=== PATIENT | male | born 1955 | race Caucasian/White ===

== ENCOUNTER 2017-05-10 09:05 | Observation (INO) | payer OTHER ==
[~2017-05-10] VITALS: Ht 170.2 cm; Wt 65.8 kg
[2017-05-10] VITALS (14 sets, daily range): BP systolic 94–107; BP diastolic 60–73
--- NOTE | ~2017-05-10 | H ---
[address] [address] HISTORY AND PHYSICAL Name: RONNY YEAGER Room: [address] Priscilla Radford#: [id number] Admission: 05/10/17 Attend Phys: Himanshu Breen MD, Discharge: 05/11/17 Date of : 51 Report #: [id number] THIS REPORT FOR: //name// Please refer to the History and Physical performed in the physician's office. By: 1150Medical Records Staff JIN /YONNY
[~2017-05-10 09:05] MED LIST: ALDACTONE25 MG PO; ASPIR 8181 MG PO; ATORVASTATIN CA40 MG PO; AZITHROMYCIN 2250 MG PO; CARVEDILOL3.125 MG PO; CARVEDILOL6.25 MG PO; CLARITIN10 M1 PO; CLARITIN10 MG PO; DUONEB 2.5-0.5 M3 ML INH; EFFIENT10 MG PO; HYDROCHLOROTH12.5 M1 PO; HYDROCODON-ACE1 EAC7 PO; IMDUR 30 MG TAB30 M1 PO; LEVAQUIN 500 M500 M2 PO; LISINOPRIL10 MG PO; LOPRESSOR50 PO; MICROZIDE12.5 MG PO; NICOTINE TRANSD14 M1 TRANSDERM; NITROGLYCERIN0.4 MG SUBLING; PREDNISONE 10 M10 MG PO; PRILOSEC 10MG C10 MG PO; PULMICORT0.5 MG/2 M INH; ZOCOR20 MG PO
[2017-05-10 10:10] LABS: HEMATOCRIT 38.3 % (42.0-52.0); HEMOGLOBIN 13.1 gm/dL (14.0-18.0); MCH 30.5 pg (26.0-34.0); MCHC 34.2 g/dL (28.0-37.0); MCV 89.1 fL (80.0-100.0); MPV 7.5 fl. (7.2-11.1); RBC 4.29 mil/uL (4.50-6.00); RDW-CV 12.5 % (10.5-14.5); WBC 8.9 thou/uL (4.0-11.0)
[2017-05-10 10:19] LABS: ANION GAP 8 mmol/L (7-16); BUN 17 mg/dL (7-18); CALCIUM 8.8 mg/dL (8.5-10.1); CHLORIDE 100 mmol/L (98-107); CO2 28 mmol/L (21-32); CREATININE 1.1 mg/dL (0.6-1.3); GLUCOSE 84 mg/dL (70-99); POTASSIUM 3.9 mmol/L (3.5-5.1); SODIUM 136 mmol/L (136-145)
[2017-05-10 10:22] LABS: APTT 23.3 Seconds (25.0-31.3); PROTIME 10.1 Seconds (9.20-11.50)
[2017-05-10 10:24] LABS: ALBUMIN 3.5 g/dL (3.4-5.0); ALKALINE PHOSPHATASE 128 U/L (46-116); CHOLESTEROL 131 mg/dL (<200); HDL CHOLESTEROL 43 mg/dL (>40); LDL CHOLESTEROL 58 mg/dL (<100); SERUM ASSESSMENT Clear; SGOT 21 U/L (15-37); SGPT 20 U/L (30-65); TOTAL BILIRUBIN 0.5 mg/dL (<0.1-1.0); TOTAL PROTEIN 7.2 g/dL (6.4-8.2); TRIGLYCERIDE 150 mg/dL (<150); VLDL 30 mg/dL (<40)
[2017-05-10] MEDS ORDERED: DUONEB 2.5-0.5 M3 ML INH (10:36)
[2017-05-10] MEDS ORDERED: PERCOCET 7.5-31 EACH PO (13:48)
--- NOTE | 2017-05-10 15:51 | EKG ---
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1955 Requested By: Himanshu Breen Order Number: [id number] Martha MD: Himanshu Breen Measurements Intervals [place] Rate: 71 P: 64 [place]: 216 QRS: 96 QRSD: 143 T: 82 QT: 424 QTc: 461 Interpretive Statements Sinus rhythm Borderline prolonged [place] interval RBBB and LPFB Anterior infarct, recent Compared to ECG 04/07/2017 22:51:05 No significant changes Electronically Signed On 05-10-2017 15:51:42 PATIENT FINANCIAL COORDINATOR by Himanshu Breen [email or web address] <ELECTRONICALLY SIGNED> By: Himanshu Breen MD, [facility] 05/10/17 1551 1028 1028 Himanshu Breen MD, [facility] /EPI
--- NOTE | 2017-05-10 15:57 | EKG ---
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1955 Requested By: Himanshu Breen Order Number: [id number] Reading MD: Himanshu Breen Measurements Intervals [place] Rate: 82 P: 66 [place]: 213 QRS: 93 QRSD: 149 T: 70 QT: 411 QTc: 480 Interpretive Statements Sinus rhythm Borderline prolonged [place] interval RBBB and LPFB Anterior infarct, recent Baseline wander in lead(s) V6 Compared to ECG 04/07/2017 22:51:05 No significant changes Electronically Signed On 05-10-2017 15:57:31 YOUTH OFFICER by Himanshu Breen [email or web address] <ELECTRONICALLY SIGNED> By: Himanshu Breen MD, FACC 05/10/17 1557 1541 1541 Himanshu Breen MD, [facility] /EPI
[2017-05-11 00:02] VITALS: BP 111/78
[2017-05-11 04:00] VITALS: BP 103/71
[2017-05-11 05:41] LABS: HEMATOCRIT 32.1 % (42.0-52.0); HEMOGLOBIN 11.3 gm/dL (14.0-18.0); MCHC 35.2 g/dL (28.0-37.0); MCV 88.2 fL (80.0-100.0); MPV 7.8 fl. (7.2-11.1); RBC 3.64 mil/uL (4.50-6.00); RDW-CV 12.3 % (10.5-14.5); WBC 6.3 thou/uL (4.0-11.0)
[2017-05-11 05:52] LABS: CALCIUM 7.9 mg/dL (8.5-10.1); CREATININE 1.1 mg/dL (0.6-1.3); POTASSIUM 4.1 mmol/L (3.5-5.1); TROPONIN-I LEVEL 0.54 ng/mL (<0.06)
[2017-05-11 08:00] VITALS: BP 113/81
[2017-05-11 11:30] VITALS: BP 114/75
[2017-05-11 11:47] VITALS: BP 113/81
--- NOTE | 2017-05-12 11:12 | CARD ---
[address] [address] CARDIAC CATH REPORT Name: RONNY YEAGER Room: [address] Priscilla Radford#: [id number] Admission: 05/10/17 Attend Phys: Himanshu Breen MD, Discharge: 05/11/17 Date of : 51 Report #: [id number] THIS REPORT FOR: //name// APPROVED REPORT Patient Details Patient Status: Out-Patient Room #: The patient is a 61 year-old male Event Personnel Himanshu Breen Jacket Preparer, Ysabel Barton RN Creative/Art Director, Ganga Juarez (R) Monitor, MargaMinerva RTR Scrub Procedures Performed Art Access - R femoral artery* , Left Heart Catheterization, Selective Right and Left Coronary Angiography, PTCA with Stenting Indication Unstable angina Risk Factors Hypercholesterolemia, Coronary Artery DiseaseHypertension Previous Procedures/Diagnoses Previous PCI, Previous DE Admission/Lab Medications/Medications given during procedure Aspirin, Platelet Aff. Inhib., Angiomax bolus and infusion Procedure Narrative The patient was brought electively to the Cardiac Catheterization Laboratory and was prepped and draped in a sterile manner. The right femoral was infiltrated with 1% Lidocaine subcutaneous anesthesia. A [place] 6 FR sheath was inserted into the right femoral artery. Coronary angiography was performed using coronary diagnostic catheters. The right coronary system was accessed and visualized with a Diagnostic JR4 6FR catheter. The left coronary system was accessed and visualized with a Diagnostic JL 4 6FR catheter. The left ventricle was accessed and visualized with a Diagnostic catheter. Left ventricular/Aortic Valve gradient assessed via catheter pullback. Left ventriculogram was performed in DEVI projection. Pre-demployment femoral angiogram was performed . Closure device was deployed with a 6 Fr Angioseal. The [place] [address] CARDIAC CATH REPORT Name: RONNY YEAGER Room: [address] M.R.#: [id number] Admission: 05/10/17 Attend Phys: Himanshu Breen MD, Discharge: 05/11/17 Date of : 51 Report #: [id number] well and there were no complications associated with the procedure. Intraoperative Conscious Sedation Sedation start time: 11:51 Case end Time: 12:51 Fentanyl 50 mcg Versed 3 mg Fluoro Time: 16.8 minutes Dose: DAP [id number] cGycm2 1599.68 mGy Contrast Type and Amount: Visipaque 265 ml Coronary Angiography The patient's coronary anatomy is right dominant. Diagnostic Cath Left Main 0% narrowing LAD 75% tubular mid vessel stenosis, partially within the previously deployed stent Diagonal 1 80 percent proximal stenosis Circumflex 30% mid vessel narrowing Right Coronary Widely patent proximal and mid vessel stents with 30% mid right coronary narrowing Left Ventriculography The left ventricular ejection fraction is estimated to be 30%. Left ventricular wall motion abnormalities are present. There is no mitral insufficiency. There is severe anterolateral and apical hypokinesis to akinesis IVUS Findings Mini Trek RX 2.0 X 8 Hemodynamics The aortic pressure is 99/57 mmHg with a mean of mmHg. The left ventricular pressure is 94/1 mmHg with a mean of mmHg. The left ventricular end diastolic pressure is 8 mmHg. There was no gradient across the aortic valve upon pullback. PCI Technique Lesion Anticoagulation was achieved with Angiomax. Percutaneous coronary intervention was performed on the mid left anterior descending artery segment. The lesion stenosis prior to intervention was 75% with JEFF 3 flow. A 6F XB LAD 3.5 Guide Catheter was used to engage the LCA ostium. A IG: ProwaterFlex 180CM Interventional Guidewire was used [place] [address] CARDIAC CATH REPORT Name: MIRELLA YEAGEREn BEAUCHAMP Room: [address] Priscilla Radford#: [id number] Admission: 05/10/17 Attend Phys: Himanshu Breen MD, Discharge: 05/11/17 Date of : 51 Report #: [id number] BALLOON DILATION A Balloon catheter Trek RX 3.0 X 15 was inserted and inflated up to 16.00atm for 19seconds. Additional Inflation: 16.00atm for 14seconds. STENT DEPLOYMENT A drug-eluting stent Xience Alpine RX 3.0X28 was inserted and inflated up to 10.00atm for 14seconds. Additional Inflation: 16.00atm for 15seconds. Additional Inflation: 18.00atm for 13seconds. Final angiography reveals 10 % stenosis with JEFF 3 flow. BALLOON DILATION A Balloon catheter Mini Trek RX 2.0 X 8 was inserted and inflated up to 10.00atm for 13seconds. Additional Inflation: 12.00atm for 18seconds. PCI Technique Lesion 2 Percutaneous Coronary Intervention was performed on the first diagonal branch. The lesion stenosis prior to intervention was 90% with JEFF 3 flow. Balloon Dilation A Balloon catheter Mini Trek RX 2.0 X 8 was inserted and inflated up to 12atm for 20seconds. Final angiography reveals 30 % stenosis with JEFF 3 flow. Conclusion #1 significant coronary disease characterized by following: A 75% mid LAD stenosis with 80% ostial first diagonal narrowing, B 30% narrowing of the midportion of the nondominant circumflex, C large dominant right coronary with widely patent proximal and mid vessel stents with 30% mid right coronary narrowing, #2 severe impairment in global left ventricular systolic function, estimated ejection fraction of 30% with severe anterolateral and apical hypokinesis to akinesis #3 normal left-sided hemodynamic study, #4 successful percutaneous coronary [place] [address] CARDIAC CATH REPORT Name: RONNY YEAGER Room: [address] MMauriiloRMaurilio#: [id number] Admission: 05/10/17 Attend Phys: Himanshu Breen MD, Discharge: 05/11/17 Date of : 51 Report #: [id number] drug-eluting stent at site of 75% tubular mid LAD stenosis with 10% residual narrowing following stent deployment and JEFF-3 flow the distal vessel, #4 successful percutaneous transluminal coronary angioplasty at the site of 90% ostial first diagonal narrowing with 30% residual narrowing following final dilatation and JEFF-3 flow the distal vessel. Recommendations Cardiac Risk Reduction Program Aggressive Medical Therapy Medications Administered Aspirin (any) Prasugrel <ELECTRONICALLY SIGNED> By: Himanshu Breen MD, FAC 05/12/17 1112 11 1112Himanshu Breen MD, FACC /INF
--- NOTE | 2017-05-12 13:38 | D ---
[address] [address] DISCHARGE SUMMARY Name: SHOBHARONNY QUYNH Room: [address] Priscilla Radford#: [id number] Admission: 05/10/17 Attend Phys: Himanshu Breen MD, Discharge: 05/11/17 Date of : 51 Report #: [id number] THIS REPORT FOR: //name// CC: Xu Breen DATE OF SERVICE: 05/11/2017 FINAL DISCHARGE DIAGNOSES: 1. Multivessel coronary artery disease. 2. Status post recent anterior wall myocardial infarction. 3. Ischemic cardiomyopathy. 4. Complete heart block in the context of the acute infarction requiring placement of a permanent pacemaker. 5. Chronic obstructive pulmonary disease. 6. Ischemic cardiomyopathy, most recent ejection fraction being 30%. 7. Status post percutaneous coronary intervention of the LAD and diagonal on 05/10/2017. PROCEDURES: 05/10/2017 -- left heart catheterization, left ____, selective coronary arteriography ____ with deployment of a drug-eluting stent at the site of 75% tubular and mid LAD stenosis with dilatation of high grade first diagonal stenosis. HOSPITAL COURSE: The patient is a 61-year-old male who presented several weeks ago with acute anterior wall infarction and underwent emergent intervention to the LAD. He presented several weeks later with chest pain and underwent a more elective approach to the tubular and mid right coronary lesion with a good angiographic result. Echocardiogram in the office had suggested an improvement in ejection fraction to approximately 30%. He has worn a LifeVest since the initial admission when ejection fraction was estimated at 20-25%. There have been no recording of significant ventricular arrhythmias and no discharges from the LifeVest since discharge. In the context of recurrent chest discomfort, he underwent recatheterization on 05/10/2017, which revealed 75% tubular, mid LAD and narrowing with a 90% stenosis of the diagonal emanating from this region. I deployed one drug-eluting stent in the mid LAD and dilated the ostium of the diagonal with a good angiographic result. The patient did well post-procedurally and there was good hemostasis at the femoral site of catheterization. LABORATORY DATA: 05/11/2017, revealed hemoglobin of 11.3, white blood cell count of 6300 with a platelet count of 236,000. Sodium 136, potassium 4.1, BUN 16, creatinine 1.1. Troponin 0.54. The patient was discharged to home on 05/11/2017 on the following medications: [place] [address] DISCHARGE SUMMARY Name: RONNY YEAGER Room: [address]#: [id number] Admission: 05/10/17 Attend Phys: Himanshu Breen MD, Discharge: 05/11/17 Date of : 51 Report #: [id number] Aspirin 81 mg daily, atorvastatin 40 mg daily, carvedilol 6.25 mg b.i.d., Imdur 30 mg daily, lisinopril 10 mg daily, loratadine 10 mg daily, omeprazole 10 mg daily, prasugrel 10 mg daily, spironolactone 25 mg daily, ipratropium and albuterol inhale q.i.d., p.r.n. sublingual nitroglycerin, and oxycodone/APAP 7.5/325 one tablet every 4-6 hours as needed for pain. The patient is scheduled to be readmitted next Monday for upgrading of his device from a dual chamber pacemaker to pacemaker defibrillator in the context of a persistent cardiomyopathy, ejection fraction estimated at 30% at this juncture. These issues were discussed in detail with the patient, and he is discharged home in stable condition with followup as iterated above with a planned followup with our nurse practitioner, Ruby Barreto on 05/15/2017 at 10:00; myself on 06/13/2017 at 14:20 with interval placement and upgrading of his device to dual chamber pacemaker defibrillator on 05/16/2017. <ELECTRONICALLY SIGNED> By: Himanshu Breen MD, FACC 05/12/17 1338 1607 1826Himanshu Breen MD, FAC /nt
--- NOTE | 2017-05-12 14:08 | EKG ---
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 : 1955 Requested By: Himanshu Breen Order Number: [id number] Reading MD: Himanshu Breen Measurements Intervals [place] Rate: 81 P: 50 AL: 232 QRS: 98 QRSD: 154 T: 52 QT: 397 QTc: 461 Interpretive Statements Sinus rhythm Ventricular premature complex Prolonged [place] interval RBBB and LPFB Probable anteroseptal infarct, recent Compared to ECG 05/10/2017 15:41:30 Ventricular premature complex(es) now present Myocardial infarct finding still present Electronically Signed On 05-12-2017 14:08:41 CHIEF OF SERVICE by Himanshu Breen [email or web address] <ELECTRONICALLY SIGNED> By: Himanshu Breen MD, [facility] 05/12/17 1408 0630 0630 Himanshu Breen MD, [facility] /EPI
[2017-12-05] MEDS ORDERED: CARVEDILOL3.125 MG PO (08:55)
[2017-12-26] MEDS ORDERED: MEDROLDOSEPACK PO (10:03)
== END 2017-05-11 16:20 | disposition home or self-care (01) ==
LOC: M.CL 09:05 → M.2W 13:11 → M.TBA-CV 13:11 → M.2W 13:19
PROVIDERS: ADMIT Internal Medicine
DX: I25.110 Atherosclerotic heart disease of native coronary artery with unstable angina pectoris (principal); I21.9 Acute myocardial infarction, unspecified; I10 Essential (primary) hypertension; E78.00 Pure hypercholesterolemia, unspecified; J44.9 Chronic obstructive pulmonary disease, unspecified; I25.5 Ischemic cardiomyopathy; Z87.891 Personal history of nicotine dependence; I44.2 Atrioventricular block, complete; M54.9 Dorsalgia, unspecified; G89.29 Other chronic pain

== ENCOUNTER → 2017-05-16 | Outpatient (CLI) | payer OTHER ==
[~2017-05-16] VITALS: Ht 167.6 cm; Wt 68.0 kg
[~2017-05-16] MED LIST changes: +AMITRIPTYLINE H25 M2 PO; +CIPRO500 MG PO; +COLACE100 MG PO; +ENTRESTO 24 MG1 EACH PO; +FLAGYL500 MG PO; +LISINOPRIL5 MG PO; +MEDROLDOSEPACK PO; +MIRALAX17 GM PO; +NORCO 5-325 TA1 EACH PO; +PANTOPRAZOLE SO40 M1 PO; +PERCOCET 10-321 EACH PO; +PERCOCET 7.5-31 EACH PO; +RANEXA500 MG PO; +REGLAN 10 MG TA10 MG PO; +SCOPOLAMINE1 EACH TRANSDERM; +SENNA8.6 MG PO; +ZOFRAN ODT4 MG SUBLING
[2017-05-16 14:01] VITALS: BP 89/64
[2017-05-16 14:22] VITALS: BP 100/70
[2017-05-16 15:15] VITALS: BP 106/68
--- NOTE | 2017-05-16 16:46 | EKG ---
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25 : 1955 Requested By: Ja Booth Order Number: [id number] Reading MD: Ja Booth Measurements Intervals [place] Rate: 67 P: 44 [place]: 226 QRS: 94 QRSD: 149 T: 57 QT: 433 QTc: 457 Interpretive Statements Sinus rhythm Ventricular premature complex Prolonged [place] interval RBBB and LPFB Probable anteroseptal infarct, recent Compared to ECG 05/11/2017 06:30:19 No significant changes Electronically Signed On 05-16-2017 16:46:11 OPTICAL COATING TECHNICIAN by Ja Booth [email or web address] <ELECTRONICALLY SIGNED> By: Ja Booth MD, [facility] 05/16/17 1646 1419 1419 Ja Booth MD, [facility] /EPI
--- NOTE | 2017-05-24 19:07 | CARD ---
[address] [address] CARDIAC CATH REPORT Name: RONNY YEAGER Room: [facility]#: [id number] Admission: 05/16/17 Attend Phys: Ja Booth MD Discharge: Date of : 51 Report #: [id number] THIS REPORT FOR: //name// APPROVED REPORT Patient Status: Out-Patient Room #: Event Personnel: Ja Booth Brewing Technician, Ysabel Barton RN RN, Lola Hernandes RN Monitor, Minerva Gresham RTR Scrub, Shahida Leigh Monitor, Nereyda Hutton RN RN Exam: insertion of a dual-chamber pacing defibrillator Indications: ischemic cardiomyopathy The patient is a 61 year-old male with a history of myocardial infarction with reduced left ventricular systolic function. Intraoperative Conscious Sedation Sedation start time: 12:06 Case end Time: 13:10 Fentanyl 75 mcg Versed 4 mg Implanted Devices: Biotronik Ilivia 7 DR-T DF 4 pro-MRI model #928684 serial #[id number]. Biotronik Plexa ProMRI SD model #435959 serial #[id number] Explanted Devices: Biotronik Eluna 8 DR T pro-MRI model #527360, serial #[id number]. Biotronik Solia S 53 model #463301, serial #[id number]. Procedure After explaining the risks, benefits, and alternative options, informed consent was obtained from the patient. The patient was brought to the cardiac catheterization lab and the left chest and shoulder were prepped and draped in the usual fashion. During this case, Fluoroscopy and no contrast were used for imaging. After informed consent was obtained the patient was brought to the cardiac catheterization lab. The area of the left chest was prepped and draped in sterile fashion. Local anesthesia was achieved with 1% lidocaine. After an initial incision was made over the existing generator the device was explanted using electrocautery and blunt dissection. The dual chamber pacemaker generator was detached from the atrial and ventricular [place] [address] CARDIAC CATH REPORT Name: RONNY YEAGER Room: [facility]#: [id number] Admission: 05/16/17 Attend Phys: Ja Booth MD Discharge: Date of : 51 Report #: [id number] injection of IV contrast showed some patency of the subclavian vein distal to the insertion point of the existing atrial and RV leads. Direct access with a micropuncture kit was not possible. At this point the right ventricular lead was freed up from its distal insertion by unscrewing the active fixed hip and pulling back the lead. A small neck was made in the insulation and the micropuncture wire inserted into the RV lead under the insulation. Using this method the micropuncture guidewire was advanced by advancing the RV lead as well. The micropuncture lead once within the subclavian vein was freed from the RV lead. Several dilators were utilized to expand the tract. Ultimately a 7 Tristanian tear-away introducer was advanced over the guidewire. At this point the RV lead was extracted without difficulty. A new pacing defibrillator lead was advanced to the RV apex under fluoroscopic guidance. The lead was actively fixed. Thresholds were checked and deemed to be satisfactory. There was no diaphragmatic pacing at maximum output. The pacing defibrillator lead was then secured within the pacemaker pocket using the designated cuff and 2-0 silk suture. The pacemaker pocket was then expanded. The pocket was flushed with antibiotic solution. The existing atrial and new RV pacing defibrillator lead were attached to a dual-chamber pacing defibrillator generator. The generator and redundant leads were then placed within the pacemaker pocket. The pacemaker pocket was closed first using interrupted stitches of 2-0 Vicryl for the deep tissue. The skin incision was then closed with a single subcuticular stitch of 4-0 Vicryl. Several Steri-Strips were placed across the incision and a sterile Telfa dressing covered with a Tegaderm. The patient tolerated the procedure well without complication. At the completion of implant the sensed P-wave was 2.90 mV with a pacing threshold of 0.8 V at 0.40 ms and a pacing impedance of 468 ohms. The sensed R-wave was 10.7 mV with a right ventricular pacing threshold of 0.70 V at 0.40 ms. The sensed R-wave was 10.7 mV. The right ventricular pacing impedance was 522 ohms. The shock impedance was 47 ohms with a charge time of 10.1 seconds. The VF detection rate was 222 bpm. The VT 1 detection rate was 150 bpm. The VT 2 detection rate was 176 bpm. VF therapies were anti-tachycardia pacing times one followed by 40 J shocks times a day. VF therapies were monitor only and the VT 1 zone and burst pacing 6 followed by ramp pacing 6 followed by 40 J shocks times a day in the VT 2 zone. Complications The patient tolerated the procedure well and there were no complications [place] [address] CARDIAC CATH REPORT Name: RONNY YEAGER Room: [facility]#: [id number] Admission: 05/16/17 Attend Phys: Ja Booth MD Discharge: Date of : 51 Report #: [id number] Conclusion 1. Ischemic cardiomyopathy 2. Successful upgrade of existing dual-chamber pacing system to a dual-chamber pacing defibrillator system Recommendations 1. Follow-up site check in one week. <ELECTRONICALLY SIGNED> By: Ja Booth MD, FACC 05/24/171906 06 06Michaealec Booth MD, FACC /INF
== END ==
LOC: M.CL 08:44
DX: I25.5 Ischemic cardiomyopathy (principal); I10 Essential (primary) hypertension; I25.2 Old myocardial infarction; J44.9 Chronic obstructive pulmonary disease, unspecified; Z90.49 Acquired absence of other specified parts of digestive tract; Z98.890 Other specified postprocedural states; Z95.5 Presence of coronary angioplasty implant and graft; Z79.82 Long term (current) use of aspirin; Z79.899 Other long term (current) drug therapy; Z79.891 Long term (current) use of opiate analgesic

== ENCOUNTER 2017-08-08 17:30 | Inpatient (IN) | payer OTHER ==
[~2017-08-08] VITALS: Ht 170.2 cm; Wt 73.5 kg
--- NOTE | ~2017-08-08 | PROC ---
[address] [address] PROCEDURE REPORT Name: RONNY YEAGER Room: [address] IN .R.#: [id number] Admission: 08/08/17 Attend Phys: Josselin Villagomez MD Discharge: Date of : 51 Report #: [id number] THIS REPORT FOR: //name// For GI report, please see the Provation report in Perceptive 7 content. By: 0658Medical Records Staff YONI /YONNY
[~2017-08-08 17:30] MED LIST changes: -AMITRIPTYLINE H25 M2 PO; -CIPRO500 MG PO; -COLACE100 MG PO; -ENTRESTO 24 MG1 EACH PO; -FLAGYL500 MG PO; -LISINOPRIL5 MG PO; -MEDROLDOSEPACK PO; -MIRALAX17 GM PO; -NORCO 5-325 TA1 EACH PO; -PANTOPRAZOLE SO40 M1 PO; -PERCOCET 10-321 EACH PO; -RANEXA500 MG PO; -REGLAN 10 MG TA10 MG PO; -SCOPOLAMINE1 EACH TRANSDERM; -SENNA8.6 MG PO; -ZOFRAN ODT4 MG SUBLING
[2017-08-08 17:49] VITALS: BP 114/69
[2017-08-08] MEDS ORDERED: ENTRESTO 24 MG1 EACH PO (17:54)
[2017-08-08 18:14] LABS: ABSOLUTE BASOPHILS 0.1 thou/uL (0.0-0.2); ABSOLUTE EOSINOPHILS 0.4 thou/uL (0.0-0.7); ABSOLUTE MONOCYTES 0.8 thou/uL (0.0-1.2); ABSOLUTE NEUTROPHILS 6.9 thou/uL (1.6-8.1); BASOPHILS 0.9 %; EOSINOPHILS 4.6 %; HEMATOCRIT 33.2 % (42.0-52.0); HEMOGLOBIN 11.4 gm/dL (14.0-18.0); LYMPHOCYTES 10.6 %; MCH 30.3 pg (26.0-34.0); MCHC 34.2 g/dL (28.0-37.0); MCV 88.6 fL (80.0-100.0); MONOCYTES 8.6 %; MPV 7.3 fl. (7.2-11.1); NUCLEATED RBCS 0 /100WBC; PLATELET COUNT* 347 thou/uL (150-400); POLYS 75.3 %; RBC 3.75 mil/uL (4.50-6.00); RDW-CV 12.5 % (10.5-14.5); WBC 9.1 thou/uL (4.0-11.0)
[2017-08-08 18:22] LABS: ANION GAP 5 mmol/L (7-16); BUN 12 mg/dL (7-18); CHLORIDE 98 mmol/L (98-107); CO2 34 mmol/L (21-32); CREATININE 1.3 mg/dL (0.6-1.3); GLUCOSE 120 mg/dL (70-99); POTASSIUM 3.7 mmol/L (3.5-5.1); SODIUM 137 mmol/L (136-145)
[2017-08-08 18:29] LABS: ALBUMIN 3.2 g/dL (3.4-5.0); ALKALINE PHOSPHATASE 104 U/L (46-116); LIPASE 64 U/L (73-393); SGOT 22 U/L (15-37); SGPT 19 U/L (30-65); TOTAL BILIRUBIN 0.7 mg/dL (<0.1-1.0); TOTAL PROTEIN 7.3 g/dL (6.4-8.2); TROPONIN-I LEVEL <0.06 ng/mL (<0.06)
[2017-08-08 19:47] LABS: URINE BILIRUBIN NEGATIVE (Negative); URINE BLOOD NEGATIVE (Negative); URINE CLARITY CLEAR; URINE COLOR STRAW; URINE GLUCOSE-RANDOM NEGATIVE (Negative); URINE KETONES NEGATIVE (Negative); URINE LEUKOCYTES-REFLEX NEGATIVE (Negative); URINE NITRITE-REFLEX NEGATIVE (Negative); URINE PROTEIN NEGATIVE (Negative); URINE SPECIFIC GRAVITY <= 1.005 (1.005-1.030); URINE UROBILINOGEN 0.2 E.U./dl (0.2-1.0)
[2017-08-08 22:05] VITALS: BP 94/60
[2017-08-08 22:15] VITALS: BP 94/62
[2017-08-09 08:05] VITALS: BP 84/48
[2017-08-09 09:00] VITALS: BP 93/56
[2017-08-09 16:05] VITALS: BP 100/66
[2017-08-09 21:15] VITALS: BP 94/64
[2017-08-10 04:17] LABS: HEMATOCRIT 27.9 % (42.0-52.0); HEMOGLOBIN 9.6 gm/dL (14.0-18.0); MCH 30.4 pg (26.0-34.0); MCHC 34.5 g/dL (28.0-37.0); MCV 88.3 fL (80.0-100.0); MPV 7.3 fl. (7.2-11.1); RBC 3.16 mil/uL (4.50-6.00); RDW-CV 12.5 % (10.5-14.5); WBC 7.2 thou/uL (4.0-11.0)
[2017-08-10 04:29] LABS: CALCIUM 8.3 mg/dL (8.5-10.1); CREATININE 1.1 mg/dL (0.6-1.3); MAGNESIUM 1.3 mg/dL (1.8-2.4); POTASSIUM 3.5 mmol/L (3.5-5.1)
[2017-08-10 08:05] VITALS: BP 98/65
[2017-08-10 12:29] VITALS: BP 98/65
[2017-08-10 14:06] VITALS: BP 132/66
--- NOTE | 2017-08-10 16:38 | EKG ---
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 : 1955 Requested By: Armin Barrios Order Number: [id number] Martha MD: Ja Booth Measurements Intervals [place] Rate: 92 P: 49 [place]: 215 QRS: 105 QRSD: 150 T: 18 QT: 376 QTc: 466 Interpretive Statements Sinus rhythm Prolonged [place] interval RBBB and LPFB Probable anteroseptal infarct, old Compared to ECG 05/16/2017 14:19:47 Ventricular premature complex(es) no longer present Myocardial infarct finding still present Electronically Signed On 08-10-2017 16:38:09 CDT by Ja Booth [email or web address] <ELECTRONICALLY SIGNED> By: Ja Booth MD, FAC 08/10/17 1638 0826 0826 Ja Booth MD, [facility] /EPI
[2017-08-10 17:15] VITALS: BP 107/73
--- NOTE | 2017-08-10 17:42 | CON ---
[address] [address] CONSULTATION Name: JOSEPHJULIANNERONNY JOE Room: [address] IN M.R.#: [id number] Admission: 08/08/17 Attend Phys: Josselin Villagomez MD Discharge: Date of : 51 Report #: [id number] THIS REPORT FOR: //name// CC: Xu Roche DATE OF SERVICE: 08/09/2017 HISTORY OF PRESENT ILLNESS: The patient is a 61-year-old white male who I was asked to see in the hospital today because of his history of coronary artery disease. The patient has a long history of coronary artery disease. He initially had a heart catheterization by Dr. Breen at [facility] years ago and had only mild coronary artery disease and did not require stenting. He had a repeat heart catheterization here at [place] in 02/2017 when he presented with chest pain and ST segment changes. Dr. Breen performed a cardiac catheterization in 02/2017 and no ventriculogram was performed. He was found to have complete occlusion of the LAD, 80% narrowing of the marginal branch of circumflex and a 75% stenosis of the right coronary artery. He then had a drug-eluting stent placed at the site of the occluded LAD. The patient next day developed high-degree AV block and Dr. Booth implanted a permanent pacemaker. The patient was then discharged. The patient then presented in March after his myocardial infarction and had an ejection fraction of 35% by echo. The patient presented in March with burning in his chest and shortness of breath. I actually saw him in consultation. He is felt to have COPD. Because of his cardiomyopathy, he was actually sent home with a LifeVest. I performed repeat cardiac catheterization in 03/2017 and at that time, the stent in the LAD had no restenosis. Ejection fraction was only 25%. He was noted to have a long 70% stenosis of the right coronary artery. I then placed a drug-eluting stent in the right coronary artery. The patient has been following Dr. Booth and Dr. Breen in the Cardiology Clinic. The patient was readmitted 05/11/[address] Breen performed a repeat cardiac catheterization and placed a new drug-eluting stent in the LAD. He also dilated the ostium of the diagonal branch. The patient was then readmitted a week later and Dr. Booth upgraded his pacemaker to a defibrillator. The patient notes about a week ago, he had a syncopal spell at home. He did not feel a discharge from his defibrillator. He has been short of breath, but denies any chest pain. He came to the Emergency Room yesterday complaining of abdominal discomfort and vomiting. He then felt well. He was seen by the GI service and is scheduled for colonoscopy tomorrow. I was asked to see him for preoperative evaluation. PAST MEDICAL HISTORY: Otherwise significant for back surgery, hypertension, hyperlipidemia. MEDICATIONS: Include aspirin, Lipitor, carvedilol, Lasix, Effient, Entresto, [place] [address] CONSULTATION Name: RONNY YEAGER Room: [address] IN [facility].#: [id number] Admission: 08/08/17 Attend Phys: Josselin Villagomez MD Discharge: Date of : 51 Report #: [id number] ALLERGIES: HE HAS INTOLERANCE TO OXYCODONE. FAMILY HISTORY: Heart disease runs in the family. SOCIAL HISTORY: He is . He and his live in [place], [place]. 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 Quit smoking last February. No alcohol abuse. REVIEW OF SYSTEMS: No history of stroke, asthma. He does have peptic ulcer disease. No liver disease, no kidney disease, no cancer. Does wear glasses. PHYSICAL EXAMINATION: GENERAL: Revealed a middle-aged male who was lying in bed. He appeared in no distress. VITAL SIGNS: Blood pressure was 100/60, pulse 70, he is afebrile. HEENT: He was anicteric. Conjunctivae pink. Mucous membranes moist. NECK: Veins nondistended. No carotid bruits. CHEST: Clear to auscultation. CARDIAC: Regular rate and rhythm. ABDOMEN: Soft, is mildly tender. EXTREMITIES: Had no edema. Dorsalis pedis pulse 1+ bilaterally. SKIN: Cool and dry. NEUROLOGIC: Nonfocal. His ECG was not done on admission. His workup so far, he had CT scan of the abdomen and pelvis on admission with contrast, which showed possible colon mass or colitis, evidence of diverticulosis. CT scan of the head without contrast was unremarkable. CT scan of the chest without contrast showed hyperinflated lung shah. His last echocardiogram in 03/2017 showed an ejection fraction of 35%. His lab work, sodium 137, BUN 12, creatinine 1.3. His bilirubin 0.7, SGOT 22, SGPT 19. Troponin 0.06. His white blood cell count 9.1, hemoglobin 11.4. IMPRESSION AND RECOMMENDATIONS: 1. Coronary artery disease. The patient had a drug-eluting stent placed 3 months ago. Since it has now been 3 months, I think it is reasonable to hold the Effient and aspirin for 5 days prior to proceeding with biopsy. However, at this time, the patient has no cardiac contraindication to procedure. 2. Cardiomyopathy. The patient is on Entresto and a beta erin. 3. Previous implantation of defibrillator. No recent discharge. 4. History of heart block. The patient has a pacemaker in place. 5. Previous tobacco abuse. [address] [address] CONSULTATION Name: JOSEPHJULIANNERONNY Room: [address] IN ..#: [id number] Admission: 08/08/17 Attend Phys: Josselin Villagomez MD Discharge: Date of : 51 Report #: [id number] 6. Chronic obstructive pulmonary disease. 7. Hyperlipidemia. The patient is on a statin drug. <ELECTRONICALLY SIGNED> By: Armin Barrios MD, FACCassandra 08/10/17 1742 [id number] 2021Deric Barrios MD, FACCassandra /nt
[2017-08-10 19:45] VITALS: BP 100/64
[2017-08-11 07:40] VITALS: BP 100/59
[2017-08-11 16:11] VITALS: BP 103/58
[2017-08-12 00:25] VITALS: BP 106/61
[2017-08-12 07:45] VITALS: BP 106/66
[2017-08-12] MEDS ORDERED: FLAGYL500 MG PO (09:11)
[2017-08-12] MEDS ORDERED: SENNA8.6 MG PO (09:11)
[2017-08-12] MEDS ORDERED: MIRALAX17 GM PO (09:11)
[2017-08-12] MEDS ORDERED: COLACE100 MG PO (09:11)
[2017-08-12] MEDS ORDERED: CIPRO500 MG PO (09:11)
[2017-08-12 11:45] VITALS: BP 106/66
--- NOTE | 2017-08-14 10:38 | S ---
[address] [address] SURGICAL PATH RPT PROCEDURE Name: RONNY HINOJOSA Room: [address] IN M.R.#: [id number] Admission: 08/08/17 Date of : 51 Discharge: 08/12/17 Report #: [id number] Path Case #: [id number] PATHOLOGY REPORT COLLECTION DATE: 08/10/2017 RECEIVED DATE: 08/10/2017 SUBMITTING PHYS: Dr. Verona Billings OTHER PHYS: Dr. Josselin Davila SPECIMEN(S) RECEIVED: A.Ulcerated cecum B.Ulcerated proximal ascending colon C.Ulcerated mid ascending colon * * * * * * * * * * * * FINAL DIAGNOSIS: A. Ulcerated cecum: - Active colitis, moderate, with ulceration typical of ischemia. - No granulomas identified. - See comment. B. Ulcerated proximal ascending colon: - Active colitis, mild. - No granulomas identified. - See comment. C. Ulcerated mid ascending colon: - Active colitis, mild, with focal eosinophilic infiltrate. - No granulomas identified. - See comment. COMMENT: Active colitis is present in all three biopsy specimens, with ulcer present in part A (cecum) typical of ischemia. The active colitis present in parts B and C (proximal ascending colon and mid ascending colon) could certainly be seen in ischemia, but lacks the ulceration present in part A (cecum). No significant basal lymphoplasmacytosis is present. Significant architectural distortion is absent. Viral type cytologic features are not identified. No granulomas are present. Clinical correlation is recommended. PATHOLOGIST: Ja Wood M.D. REPORT ELECTRONICALLY SIGNED BY: Ja Wood M.D. DATE/TIME: 08/14/2017 10:37 * * * * * * * * * * * * GROSS PATHOLOGY: A. Received in formalin labeled "Ronny Hinojosa, ulcerated cecum BX," [place] [address] SURGICAL PATH RPT PROCEDURE Name: RONNY HINOJOSA Room: [address] IN [facility].#: [id number] Admission: 08/08/17 Date of : 51 Discharge: 08/12/17 Report #: [id number] Path Case #: [id number] is a segment of farr soft tissue measuring 0.4 cm in maximum dimension. The specimen is submitted entirely in cassette A1. B. Received in formalin labeled "Ronny Padronon, ulcerated proximal ascending colon BX," is a segment of farr soft tissue measuring 0.4 cm in maximum dimension. The specimen is submitted entirely in cassette B1. C. Received in formalin labeled "Ronny Wagnon, ulceration mid ascending colon," is a segment of farr soft tissue measuring 0.4 cm in maximum dimension. The specimen is submitted entirely in cassette C1. (TSD; 08/10/2017) CLINICAL HISTORY: Suspected ischemia INITIAL CPT CODE(S): A; 81688 B; 17498 C; 37783 Professional services performed by [facility] at [facility] [address] [facility], [place] [address] Technical services performed by [facility] at [address] [place] [address], [address], [place] [address]. [facility] [address] [place] [address] PHONE: [phone] DIRECTOR: Caleb Whitten M.D. * * * END OF REPORT * * *
--- NOTE | 2017-08-28 15:01 | CON ---
[address] [address] CONSULTATION Name: RONNY YEAGER Room: [address] IN M.R.#: [id number] Admission: 08/08/17 Attend Phys: Josselin Villagomez MD Discharge: 08/12/17 Date of : 51 Report #: [id number] THIS REPORT FOR: //name// CC: TIARA Villagomez DICTATED BY: Opal Soto [facility] DATE OF SERVICE: 08/09/2017 Please note at the time of this dictation, the patient was seen and physically examined by myself. REASON FOR CONSULTATION: Right-sided abdominal pain and abnormal CT findings. HISTORY OF PRESENT ILLNESS: This is a pleasant 61-year-old male who arrives to the Emergency Room complaining of right lower quadrant pain, which he states started on night, when he got up in the middle of the night to go to the bathroom that he noticed he started having pain which worsened on Monday. 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 He states his appetite diminished secondary to the pain. He really was not eating and his bowels prior to were soft and formed on a daily basis. He states maybe they might have been a little bit darker than normal, but no bright red blood that he has noted. He states his bowels have continued to move with the last one being the other day, but it is very painful for his bowels to move and he has ongoing right lower quadrant pain. The patient states he did have a colonoscopy probably around 10 years ago at [facility] and he states he had polyps removed at that time. We will attempt to obtain those records to take a further look and also to see what the pathology was on the polyps. ALLERGIES: No known drug allergies. MEDICATIONS: From home include Effient, spironolactone, carvedilol, atorvastatin. PAST MEDICAL HISTORY: 1. AK x 5. 2. Hypertension. 3. COPD. PAST SURGICAL HISTORY: Pacemaker and stent back in February of 2017, back surgery, cardiac stents, cholecystectomy. FAMILY HISTORY: Niece of his sisters, breast cancer [place] [address] CONSULTATION Name: RONNY YEAGER Room: [address]#: [id number] Admission: 08/08/17 Attend Phys: Josselin Villagomez MD Discharge: 08/12/17 Date of : 51 Report #: [id number] pancreatic cancer that is . SOCIAL HISTORY: Denies any alcohol, tobacco or illegal drug use. REVIEW OF SYSTEMS: Twelve-point review of systems is essentially negative except what is mentioned in the HPI. PHYSICAL EXAMINATION: VITAL SIGNS: Temperature 36.8, pulse 81, respirations 18, blood pressure 93/56. HEART: Regular rate and rhythm. LUNGS: Clear. ABDOMEN: Soft, positive bowel sounds in all 4 quadrants with right upper to right lower quadrant tenderness noted to palpation with some guarding noted. LABORATORY DATA: Hemoglobin is 11.4, hematocrit 33.2, white count is 9.1, platelets 347. Sodium 137, potassium 3.7, chloride 98, CO2 of 34, BUN is 12, creatinine 1.3, GFR is 56. Glucose is 120. CT of the abdomen and pelvis showed an absent gallbladder. It showed thickening of the cecum and ascending measuring 1.6 cm with some sigmoid diverticulosis noted. IMPRESSION: 1. Right lower quadrant pain and right upper quadrant pain. 2. History of colon polyps done at [facility], approximately 10 years ago. 3. Anticoagulant therapy, Effient. 4. Family history of breast cancer in a niece and pancreatic cancer in a nephew that is . PLAN: 1. Colonoscopy tomorrow with Dr. Su. 2. Obtain records from [facility]. 3. We will await Cardiology approval to proceed with his colonoscopy tomorrow secondary to his cardiac history. 4. Further recommendations to be made once the procedure has been performed. 5. Hold aspirin. Thank you for allowing us to participate in this patient's care. Please do not hesitate to call with any questions in regard to this consult. ADDENDUM I have personally seen and examined the patient and reviewed labs and imaging. The patient with right-sided abdominal pain and history of colon polyps with colonoscopy 10 years ago. Since admission, he had a CT of abdomen and pelvis, which showed some thickening of the colon in the right side including cecum and ascending colon. The patient takes Effient and aspirin. [place] [address] CONSULTATION Name: SHOBHARONNY JOE Room: [address] IN M.R.#: [id number] Admission: 08/08/17 Attend Phys: Josselin Villagomez MD Discharge: 08/12/17 Date of : 51 Report #: [id number] on hold since yesterday. We will await Cardiology clearance to perform a colonoscopy tomorrow. Meanwhile, we will continue to hold the Effient. <ELECTRONICALLY SIGNED> By: Verona Billings MD 08/28/17 1501 1238 1447eVrona Billings MD /nt
[2017-12-05] MEDS ORDERED: CARVEDILOL3.125 MG PO (08:55)
[2017-12-26] MEDS ORDERED: MEDROLDOSEPACK PO (10:03)
== END 2017-08-12 15:15 | disposition home or self-care (01) | DRG 394 ==
LOC: M.ERS 17:30 → M.TBA-ER 20:24 → M.3W 20:24
PROVIDERS: Internal Medicine; Physician Assistant; ADMIT Internal Medicine
PROC: 0DBK8ZX Excision of Ascending Colon, Via Natural or Artificial Opening Endoscopic, Diagnostic (ICD-10-PCS; principal; 2017-08-10)
PROC: 0DBH8ZX Excision of Cecum, Via Natural or Artificial Opening Endoscopic, Diagnostic (ICD-10-PCS; 2017-08-10)
DX: K55.039 Acute (reversible) ischemia of large intestine, extent unspecified (principal); J98.11 Atelectasis; I50.22 Chronic systolic (congestive) heart failure; I42.9 Cardiomyopathy, unspecified; J44.0 Chronic obstructive pulmonary disease with (acute) lower respiratory infection; K57.30 Diverticulosis of large intestine without perforation or abscess without bleeding; K64.4 Residual hemorrhoidal skin tags; I11.0 Hypertensive heart disease with heart failure; E78.5 Hyperlipidemia, unspecified; I25.10 Atherosclerotic heart disease of native coronary artery without angina pectoris; Z79.899 Other long term (current) drug therapy; Z79.82 Long term (current) use of aspirin; I25.2 Old myocardial infarction; Z95.0 Presence of cardiac pacemaker; Z95.5 Presence of coronary angioplasty implant and graft; Z87.891 Personal history of nicotine dependence; Z90.49 Acquired absence of other specified parts of digestive tract; Z80.3 Family history of malignant neoplasm of breast; Z80.8 Family history of malignant neoplasm of other organs or systems; Z86.010 Personal history of colon polyps; Z79.01 Long term (current) use of anticoagulants

== ENCOUNTER 2017-10-08 17:45 | Inpatient (IN) | payer OTHER ==
[~2017-10-08] VITALS: Ht 152.4 cm; Wt 74.1 kg
--- NOTE | ~2017-10-08 | EKG ---
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
[~2017-10-08 17:45] MED LIST changes: +CIPRO500 MG PO; +COLACE100 MG PO; +ENTRESTO 24 MG1 EACH PO; +FLAGYL500 MG PO; +MIRALAX17 GM PO; +SENNA8.6 MG PO
[2017-10-08 17:49] VITALS: BP 96/59
[2017-10-08 18:08] LABS: ABSOLUTE BASOPHILS 0.1 thou/uL (0.0-0.2); ABSOLUTE EOSINOPHILS 0.4 thou/uL (0.0-0.7); ABSOLUTE MONOCYTES 0.3 thou/uL (0.0-1.2); ABSOLUTE NEUTROPHILS 3.1 thou/uL (1.6-8.1); BASOPHILS 2.2 %; EOSINOPHILS 7.5 %; HEMATOCRIT 34.9 % (42.0-52.0); HEMOGLOBIN 11.9 gm/dL (14.0-18.0); LYMPHOCYTES 20.4 %; MCH 29.6 pg (26.0-34.0); MPV 7.2 fl. (7.2-11.1); NUCLEATED RBCS 0 /100WBC; PLATELET COUNT* 260 thou/uL (150-400); POLYS 62.9 %; RBC 4.01 mil/uL (4.50-6.00); RDW-CV 12.5 % (10.5-14.5)
[2017-10-08 18:16] LABS: ANION GAP 11 mmol/L (7-16); BUN 17 mg/dL (7-18); CALCIUM 8.6 mg/dL (8.5-10.1); CHLORIDE 100 mmol/L (98-107); CO2 27 mmol/L (21-32); CREATININE 1.5 mg/dL (0.6-1.3); GLUCOSE 133 mg/dL (70-99); POTASSIUM 3.1 mmol/L (3.5-5.1); SODIUM 138 mmol/L (136-145)
[2017-10-08 18:17] LABS: APTT 25.3 Seconds (25.0-31.3); INR 1.1; PROTIME 10.9 Seconds (9.20-11.50)
[2017-10-08 18:32] LABS: ALBUMIN 3.5 g/dL (3.4-5.0); ALKALINE PHOSPHATASE 117 U/L (46-116); CK-MB MASS 0.9 ng/mL (<0.5-3.6); LIPASE 134 U/L (73-393); MAGNESIUM 1.5 mg/dL (1.8-2.4); NT-PRO BRAIN NAT PEPTIDE 1197 pg/mL (<300); SGOT 18 U/L (15-37); SGPT 15 U/L (30-65); TOTAL BILIRUBIN 0.7 mg/dL (<0.1-1.0); TOTAL PROTEIN 7.2 g/dL (6.4-8.2); TROPONIN-I LEVEL <0.06 ng/mL (<0.06)
[2017-10-08 19:40] VITALS: BP 102/61
[2017-10-08 20:00] VITALS: BP 106/70
--- NOTE | 2017-10-09 01:16 | NUR ---
PATIENT GOT ADMITTED ON THE FLOOR FROM THE ER AT 19:50 IN ER BED. ACCOMPANIED BY AND ER NURE. ALERT AWAKE ORIENTED X4. SINUS RYTHM ONF THE MONITOR, DOES HAVE A DEFIBRILATOR IMPLANTED. VITAL SIGNS RE WITHIN NORMAL LIMIT. ON 2 L NC FOR CHEST PAIN ISSUE. SATURATION IS 100%. ADMISSION ASSMENENT AND HISTORY PERFORMED AT BEDSIDE. REFER TO CHARTING. PT STATES THAT HE HAD BEEN FEELING THE PAIN IN HIS CHEST SINCE 12:00 ON October. DESCRIBED THE PAIN RADIATIN G ALONG THE CHEST LINE, LEFT AND RIGHT, LEVEL OF 8. MORPHINE WAS GIVEN TO CONTROL PAIN LEVEL. PAIN RECHECKED AFTER A COUPLE HOURS. LEVEL IS NOW 7. BUT IT IS STILL HURTING. PT HAS NITRO ORDERED FOR CHEST PAIN. HE REFUSES THE NITRO SAYING THAT IT IS ONLY TO BE USED AT LAST RESSOURCE, WILL KEEP AN EYE ON THE CHEST PAIN. CURRNENLY RECEIVING NS AT 100CC/HR. IS AT THE BEDSIDE, BED PROVIDED. SHE IS WILLIN TO LAY DOWN. PT STATES THAT HE HAD VERIOUS BOWEL MVNT TODAY AND THEY WEREE DIARRHEA. WAS NOT ANBLE SEE. FORMER SMOKER. DR DE GUZMAN WAS CONSULTED ORDERED,. GAB SAYS TO PUT PT NPO AT MIDNIGHT AND GET HIM READY FOR DR PACE ([facility]). CURRENTLY T HEAVY SMOKE.
--- NOTE | 2017-10-09 01:45 | NUR ---
PATIENT COMPLAINS OF BAD PAIN IN THE CHEST. THAT RADIATES BILATERALLY AND IN THE LEFT BACK. CERTIFIED DIALYSIS TECHNICIAN WAS PAGED FOR SOME NEW PAIN ORDER. WILL WAIT.
[2017-10-09 04:30] VITALS: BP 92/64
[2017-10-09 11:28] VITALS: BP 99/63
--- NOTE | 2017-10-09 11:43 | EKG ---
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: VIKTORIYA : 1955 Requested By: Jordin Begum Order Number: [id number] MD: Himanshu Breen Measurements Intervals [place] Rate: 70 P: 59 IA: 228 QRS: 99 QRSD: 160 T: 21 QT: 450 QTc: 486 Interpretive Statements Sinus rhythm Prolonged IA interval RBBB and LPFB Anteroseptal infarct, age indeterminate Compared to ECG 08/10/2017 08:26:47 No significant changes Electronically Signed On 10-09-2017 11:43:06 CDT by Himanshu Breen [email or web address] <ELECTRONICALLY SIGNED> By: Himanshu Breen MD, [facility] 10/09/17 1143 1751 1751 Himanshu Breen MD, [facility] /EPI
--- NOTE | 2017-10-09 11:48 | EKG ---
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
--- NOTE | 2017-10-09 13:52 | NUR ---
MET WITH PT TO DISCUSS HOME SITUATION/DC PLANNING. PT LIVES WITH . IS INDEPENDENT AND FAIRLY ACTIVE DEPENDING ON HIS 'PAIN LEVEL'. HAS HX OF BACK SRUGERY. USES NEBULZIER AND HAS POWER SCOOTER WHEN OUT. HE FOLLOWS WITH DR CEDRIC JOLLY IN [place]. HASN'T HAD HH OR SNF. ANSWERED QUESTIONS ABOUT INSURANCE AND OFFERED SOME SUGGESTIONS. NO DC NEEDS ID'D. WILL FOLLOW
[2017-10-09 16:04] VITALS: BP 134/54; BP 93/61
--- NOTE | 2017-10-09 16:10 | 2DMMODE ---
[place] [address] 2 D/M-MODE ECHOCARDIOGRAM Name: FANTASMAEVRONNY QUYNH Room: [facility] ADM IN [facility]#: [id number] Admission: 10/08/17 Attend Phys: Johnny Villagomez Discharge: Date of : 51 Date of Service: 10/09/17 1610 Report #: [id number] THIS REPORT FOR: //name// APPROVED REPORT Study performed: 10/09/2017 15:07:03 EXAM: Comprehensive 2D, Doppler, and color-flow Echocardiogram Patient Location: In-Patient Room #: [facility] Status: routine BSA: 1.83 HR: 90 bpm BP: 99/63 mmHg Rhythm: NSR Other Information Study Quality: Good Indications Cardiomyopathy Chest Pain 2D Dimensions LVEF(%): 55.20 (>50%) IVSd: 7.29 (7-11mm) LVOT Diam: 20.35 (18-24mm) LVDd: 59.21 mm PWd: 8.32 (7-11mm) Ascending Ao: 36.54 (22-36mm) LVDs: 41.92 (25-40mm) Aortic Root: 35.36 mm Leon's LVEF: 55.20 % Volumes Left Atrial Volume (Systole) LA ESV Index: 20.20 mL/m2 Aortic Valve AoV Peak Joshua.: 1.20 m/s AO Peak Gr.: 5.74 mmHg LVOT Max P.88 mmHg AO Mean Gr.: 3.36 mmHg LVOT Mean P.24 mmHg LVOT Max V: 0.99 m/s AO V2 VTI: 21.30 cm LVOT Mean V: 0.71 m/s VIRGINIE (VTI): 2.91 cm2 LVOT V1 VTI: 19.05 [place] [address] 2 D/M-MODE ECHOCARDIOGRAM Name: RONNY YEAGER QUYNH Room: [place] [address] ADM IN ..#: [id number] Admission: 10/08/17 Attend Phys: Johnny Villagomez Discharge: Date of : 51 Date of Service: 10/09/17 1610 Report #: [id number] Lateral E' Joshua.: 0.15 m/s Pulmonary Valve PV Peak Joshua.: 1.16 m/s PV Peak Gr.: 5.39 mmHg Tricuspid Valve TR Peak Gr.: 25.11 mmHg RVSP: 30.00 mmHg Left Ventricle The left ventricle is normal size. Regional wall motion abnormalities are noted with mid-distal septal and anteroapical akinesis. There is normal left ventricular wall thickness. Left ventricular systolic function is moderately decreased. LVEF is 35-40%. The left ventricular diastolic function is normal. Right Ventricle The right ventricle is normal size. The right ventricular systolic function is normal. Pacemaker lead is present in the right ventricle. Atria The left atrium size is normal. The right atrium size is normal. Aortic Valve Aortic valve leaflets are mildly thickened. No aortic regurgitation is present. There is no aortic valvular stenosis. Mitral Valve The mitral valve is normal in structure. Trace mitral regurgitation. No evidence of mitral valve stenosis. Tricuspid Valve The tricuspid valve is normal in structure. Trace tricuspid regurgitation. The RVSP is 30-35 mmHg. Pulmonic Valve The pulmonary valve is normal in structure. Trace pulmonic regurgitation. Great Vessels The aortic root is normal in size. IVC is normal in size and collapses with >50% inspiration Pericardium There is no pericard[place] [address] 2 D/M-MODE ECHOCARDIOGRAM Name: JOSEPHJULIANNERONNY Room: [address] IN [facility]#: [id number] Admission: 10/08/17 Attend Phys: Johnny Villagomez Discharge: Date of : 51 Date of Service: 10/09/17 1610 Report #: [id number] <Conclusion> The left ventricle is normal size. There is normal left ventricular wall thickness. Left ventricular systolic function is moderately decreased. LVEF is 35-40%. The left ventricular diastolic function is normal. The right ventricle is normal size. The left atrium size is normal. Aortic valve leaflets are mildly thickened. No aortic regurgitation is present. There is no aortic valvular stenosis. The mitral valve is normal in structure. Trace mitral regurgitation. The tricuspid valve is normal in structure. Trace tricuspid regurgitation. The RVSP is 30-35 mmHg. IVC is normal in size and collapses with >50% inspiration There is no pericardial effusion. Regional wall motion abnormalities are noted with mid-distal septal and anteroapical akinesis. Pacemaker lead is present in the right ventricle. <ELECTRONICALLY SIGNED> By: Himanshu Breen MD, FACC 10/09/17 1610 1610 1610 Himanshu Breen MD, FACC /INF
--- NOTE | 2017-10-09 19:30 | NUR ---
ASSUMED CARE OF PT AT 0730. PT CONTINUES TO BE A&O X4 CALM AND COOPERATIVE. PT C/O PAIN HAVE BEEN EFFECTIVELY CONTROLLED WITH PRN PAIN MEDS PER JUL. PT VSS ON ROOM AIR AND TRACING SR ON THE MONITOR. PT APPETITE HAS BEEN GOOD AND HE HAS ATE GREATER THAN 75% OF ALL MEALS TODAY. HE HAS BEEN VOIDING VIA THE TOILET WHERE HE IS UP SBA. PT SCHEDULED FOR A STRESS TEST TOMORROW AND HAS BEEN EDUCATED ON NPO AFTER MIDNIGHT. PT CURRENTLY RESTING IN BED WATCHING TV WITH AT BEDSIDE. NURSING WILL CONTINUE TO MONITOR FOR COMFORT AND SAFTEY.
--- NOTE | 2017-10-09 20:13 | NUR ---
ASSUMED PT CARE AT 19:15. PT IS ALERT, AWAKE ORIENTED X4. WENT IN ROOM TO INITIATE CARE AND TAKE VITAL SIGNS. INITIATED CONVERSTION ABOUT CARE PROCESSING INCLUDING BEING NPO AFTER MIDNIGHT, NO CAFFEINE FOR STRESS TEST SCHEDULED FOR THE NEXT DAY. MENTIONED NEW SPINAL XRAY RESULTS, THAT THERE ARE NO CHANGES FROM PREVIOUS DEGENERATIVE DISEASE. PT GOT ANGRY, AND STATES :" I WANT YOU GUYS TO FIND OUT WHAT IS WRONG WITH MY BACK BECAUSE SOMETHING IS WRONG WITH ME." HE DECIDED TO LEAVE AMA. AND REFUSED TO SIGN THE PAPER. IV LINE WAS PULLED OUT. FOLLOW UP MANAGER OFF. PATIENT WALKED AWAY ALONG WITH .
--- NOTE | 2017-10-10 08:55 | NUR ---
P.T. ORDERS RECEIVED 10/09/17. PT LEFT AMA 10/09/17 PRIOR TO COMPLETION OF EVAL.
[2017-12-05] MEDS ORDERED: CARVEDILOL3.125 MG PO (08:55)
[2017-12-26] MEDS ORDERED: MEDROLDOSEPACK PO (10:03)
== END 2017-10-09 20:10 | disposition left against medical advice (07) | DRG 552 ==
LOC: M.ERS 17:45 → M.TBA-ER 18:35 → M.2W 18:35
PROVIDERS: Family Medicine; ADMIT Internal Medicine
DX: M47.24 Other spondylosis with radiculopathy, thoracic region (principal); I50.22 Chronic systolic (congestive) heart failure; I13.0 Hypertensive heart and chronic kidney disease with heart failure and stage 1 through stage 4 chronic kidney disease, or unspecified chronic kidney disease; E78.5 Hyperlipidemia, unspecified; M47.22 Other spondylosis with radiculopathy, cervical region; I25.10 Atherosclerotic heart disease of native coronary artery without angina pectoris; R07.89 Other chest pain; N18.3 Chronic kidney disease, stage 3 (moderate); K57.90 Diverticulosis of intestine, part unspecified, without perforation or abscess without bleeding; J44.9 Chronic obstructive pulmonary disease, unspecified; I25.5 Ischemic cardiomyopathy; G89.29 Other chronic pain; Z88.8 Allergy status to other drugs, medicaments and biological substances; Z79.899 Other long term (current) drug therapy; Z90.49 Acquired absence of other specified parts of digestive tract; Z95.5 Presence of coronary angioplasty implant and graft; Z95.0 Presence of cardiac pacemaker; I25.2 Old myocardial infarction; Z87.891 Personal history of nicotine dependence

== ENCOUNTER 2017-10-31 16:17 | Inpatient (IN) | payer OTHER ==
[~2017-10-31] VITALS: Ht 170.2 cm; Wt 72.1 kg
[2017-10-31 16:22] VITALS: BP 116/71
[2017-10-31 16:39] LABS: ABSOLUTE BASOPHILS 0.1 thou/uL (0.0-0.2); ABSOLUTE EOSINOPHILS 0.2 thou/uL (0.0-0.7); ABSOLUTE LYMPHOCYTES 1.3 thou/uL (0.8-5.3); ABSOLUTE MONOCYTES 0.7 thou/uL (0.0-1.2); ABSOLUTE NEUTROPHILS 4.1 thou/uL (1.6-8.1); BASOPHILS 1.4 %; EOSINOPHILS 2.7 %; HEMATOCRIT 36.8 % (42.0-52.0); HEMOGLOBIN 12.3 gm/dL (14.0-18.0); LYMPHOCYTES 21.2 %; MCH 29.2 pg (26.0-34.0); MCHC 33.3 g/dL (28.0-37.0); MCV 87.8 fL (80.0-100.0); MONOCYTES 10.3 %; MPV 7.5 fl. (7.2-11.1); NUCLEATED RBCS 0 /100WBC; PLATELET COUNT* 283 thou/uL (150-400); POLYS 64.4 %; RDW-CV 12.6 % (10.5-14.5); WBC 6.3 thou/uL (4.0-11.0)
[2017-10-31 16:47] LABS: APTT 27.4 Seconds (25.0-31.3); INR 1.1; PROTIME 10.7 Seconds (9.20-11.50)
[2017-10-31 16:50] LABS: ANION GAP 8 mmol/L (7-16); BUN 18 mg/dL (7-18); CALCIUM 8.6 mg/dL (8.5-10.1); CHLORIDE 99 mmol/L (98-107); CO2 29 mmol/L (21-32); CREATININE 1.3 mg/dL (0.6-1.3); GLUCOSE 126 mg/dL (70-99); POTASSIUM 3.3 mmol/L (3.5-5.1); SODIUM 136 mmol/L (136-145)
[2017-10-31 17:11] LABS: ALBUMIN 3.4 g/dL (3.4-5.0); ALKALINE PHOSPHATASE 139 U/L (46-116); CK-MB MASS 1.8 ng/mL (<0.5-3.6); LIPASE 135 U/L (73-393); MAGNESIUM 1.5 mg/dL (1.8-2.4); NT-PRO BRAIN NAT PEPTIDE 1774 pg/mL (<300); SGOT 17 U/L (15-37); SGPT 15 U/L (30-65); TOTAL BILIRUBIN 0.8 mg/dL (<0.1-1.0); TOTAL PROTEIN 7.3 g/dL (6.4-8.2); TROPONIN-I LEVEL <0.06 ng/mL (<0.06)
[2017-10-31 19:24] VITALS: BP 96/60
[2017-10-31 19:40] VITALS: BP 102/73
[2017-10-31] MEDS ORDERED: PERCOCET 10-321 EACH PO (21:08)
[2017-11-01] VITALS: BP 91/57
[2017-11-01 04:00] VITALS: BP 92/59
--- NOTE | 2017-11-01 04:26 | NUR ---
RECEIVED REPORT FROM ORGANIZATIONAL DEVELOPMENT DIRECTOR, DOROTHY, AT 192. PATIENT ARRIVED VIA CART AT 1938 WITH AT BEDSIDE. PT AAOX4, ABLE TO VERBALIZE NEEDS. NURSING ASSESSMENT COMPLETED, PT ORIENTED TO ROOM AND CALL LIGHT. MED REC COMPLETED. PT C/O BACK PAIN AND CHEST SORENESS. PT STATED CHEST SORENESS HAS BEEN GOING ON FOR THE LAST 1.[address] WHITMORE NOTIFIED OF PT REQUEST FOR BACK PAIN MEDICATION AND REQUEST FOR ELECTROLYTE PROTOCOL. NEW ORDERS RECEIVED. SEE EMAR FOR DOCUMENTATION. PT VERBALIZED PAIN RELIEF. HOURLY ROUNDING COMPLETED. PT NPO FOR CARDIOLOGY CONSULT IN AM.
[2017-11-01 07:27] LABS: MAGNESIUM 1.5 mg/dL (1.8-2.4); POTASSIUM 4.6 mmol/L (3.5-5.1)
[2017-11-01 08:00] VITALS: BP 110/67
[2017-11-01] MEDS ORDERED: PREDNISONE 10 M10 MG PO (09:07)
--- NOTE | 2017-11-01 10:33 | EKG ---
[place] [address] ELECTROCARDIOGRAM REPORT Name: RONNY YEAGER Room: [address] IN [facility].#: [id number] Admission: 10/31/17 Attend Phys: Ruby Lewis Discharge: Date of : 51 Report #: [id number] THIS REPORT FOR: //name// [facility] ED Test Date: 2017-10-31 Test Time: 16:23:44 Pat Name: RONNY YEAGER Department: Room: Gender: Trust Operations Assistant: Mel CHAVEZ : 1955 Requested By: Jordin Begum Order Number: [id number] MD: Armin Barrios Measurements Intervals [place] Rate: 76 P: 62 RI: 226 QRS: 100 QRSD: 155 T: 44 QT: 442 QTc: 498 Interpretive Statements Sinus rhythm Ventricular bigeminy Prolonged RI interval RBBB and LPFB Anterior infarct, old Compared to ECG 10/09/2017 10:10:57 Ventricular premature complex(es) now present Myocardial infarct finding now present Electronically Signed On 11-01-2017 10:33:24 CDT by Armin Barrios [email or web address] <ELECTRONICALLY SIGNED> By: Armin Barrios MD, [facility] 11/01/17 1033 1623 1623 Armin Barrios MD, [facility] /EPI
--- NOTE | 2017-11-01 10:38 | EKG ---
[place] [address] ELECTROCARDIOGRAM REPORT Name: RONNY YEAGER Room: [address] ADM IN .R.#: [id number] Admission: 10/31/17 Attend Phys: Ruby Lewis Discharge: Date of : 51 Report #: [id number] THIS REPORT FOR: //name// [facility] Test Date: 2017-10-31 Test Time: 22:22:43 Pat Name: RONNY YEAGER Department: Room: [address] Gender: M Emr Trainer: MICHAEL : 1955 Requested By: Jordin Begum Order Number: [id number] Martha MD: Armin Barrios Measurements Intervals [place] Rate: 76 P: 69 GA: 220 QRS: 100 QRSD: 158 T: 43 QT: 431 QTc: 485 Interpretive Statements Sinus rhythm Ventricular bigeminy Prolonged [place] interval RBBB and LPFB Probable anteroseptal infarct, old Electronically Signed On 11-01-2017 10:38:02 CDT by Armin Barrios [email or web address] <ELECTRONICALLY SIGNED> By: Armin Barrios MD, [facility] 11/01/17 1038 21 21 Armin Barrios MD, [facility] /EPI
--- NOTE | 2017-11-01 10:41 | EKG ---
[place] [address] ELECTROCARDIOGRAM REPORT Name: RONNY YEAGER Room: [address] ADM IN .R.#: [id number] Admission: 10/31/17 Attend Phys: Ruby Lewis Discharge: Date of : 51 Report #: [id number] THIS REPORT FOR: //name// [facility] Test Date: 2017-11-01 Test Time: 03:48:54 Pat Name: RONNY YEAGER Department: Room: [address] Gender: M Service Trainer: MICHAEL : 1955 Requested By: Jordin Begum Order Number: [id number] Martha MD: Armin Barrios Measurements Intervals [place] Rate: 78 P: 72 MA: 225 QRS: 100 QRSD: 150 T: 63 QT: 416 QTc: 474 Interpretive Statements Sinus rhythm Prolonged [place] interval RBBB and LPFB Probable anteroseptal infarct, old Electronically Signed On 11-01-2017 10:40:53 CDT by Armin Barrios [email or web address] <ELECTRONICALLY SIGNED> By: Armin Barrios MD, [facility] 11/01/17 1040 0348 0348 Armin Barrios MD, FACC /EPI
[2017-11-01 12:00] VITALS: BP 86/57
[2017-11-01 12:44] VITALS: BP 86/57
--- NOTE | 2017-11-01 14:53 | NUR ---
ASSUMED CARE OF PT AT 0730 TODAY. PT A&O X4 CALM AND COOPERATIVE. PT VSS ON ROOM AIR AND TRACING SR ON THE MONITOR. PT C/O BACK PAIN CONTROLLED WITH PRN PAIN MEDS PER JUL. PT DISCHARGED HOME TO SELF CARE. DISCHARGE INSTRUCTIONS REVIEWED WITH PT AND AND BOTH VERBALIZED UNDERSTANDING OF DC INSRUCTIONS. ALL PERSONAL ITEMS AND PRESCRIPTIONS TAKEN BY PT AT DISCHARGE. VSS AND NO C/O PAIN AT TIME OF DISCHARGE, SKIN WARM DRY AND INTACT.
--- NOTE | 2017-11-05 18:18 | CON ---
[facility] [address] [place] [address] CONSULTATION Name: JOSEPHJULIANNERONNY Room: [address] IN M.R.#: [id number] Admission: 10/31/17 Attend Phys: Ruby Lewis Discharge: 11/01/17 Date of : 51 Report #: [id number] THIS REPORT FOR: //name// CC: Dr. Sylvia Villagomez DATE OF SERVICE: 11/01/2017 PRIMARY CARE PHYSICIAN: Dr. Sylvia Davila. HISTORY OF PRESENT ILLNESS: The patient is a 61-year-old white male who was admitted after an episode of chest pain. The patient presented in February 2017 with an occluded LAD. He had a drug-eluting stent placed in the LAD. The next day, he developed high-degree AV block and Dr. Booth implanted a permanent pacemaker, and the patient was discharged. He presented in March with chest pain. Because of his cardiomyopathy, was sent home with a LifeVest. I performed a cardiac catheterization in March 2017. Stent in the LAD had no restenosis. Ejection fraction of only 25%. He had a long 70% stenosis of the right coronary artery. I then placed a drug-eluting stent in the right coronary artery. He was admitted in May of this year. Dr. Breen performed a repeat heart catheterization and placed a new drug-eluting stent in the LAD. Also in May, Dr. Booth upgraded his pacemaker to a defibrillator. His last hospitalization was just 3 weeks ago. He came to the Emergency Room complaining of chest pain. He was seen by our nurse practitioner, Ruby Barreto. The pain was felt to be atypical for angina. The patient had an echocardiogram earlier this month that showed an ejection fraction of only 35%. Medical therapy was recommended. The patient was discharged and yesterday went to my [facility] office to undergo a pharmacologic nuclear stress test. The patient was given Lexiscan. After administration of Lexiscan, he became hypotensive and complained of chest pain. Recently complained of exertional dyspnea. He has had some lightheaded spells. The patient has had no discharges of his defibrillator. PAST MEDICAL HISTORY: Significant for previous back surgery, cholecystectomy, hernia surgery. He had a previous history of hypertension and hyperlipidemia. MEDICATIONS: Include aspirin, Lipitor, Lasix, DuoNeb nebulizer, Prozac, oxycodone, Effient, Entresto. ALLERGIES: HE HAS A PREVIOUS INTOLERANCE TO OXYCONTIN. FAMILY HISTORY: Positive for heart disease. 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 [place] [address] CONSULTATION Name: RONNY YEAGER Room: [address] IN M.R.#: [id number] Admission: 10/31/17 Attend Phys: Ruby Lewis Discharge: 11/01/17 Date of : 51 Report #: [id number]. Quit smoking last February. No alcohol abuse. REVIEW OF SYSTEMS: He has had no history of stroke, asthma. He has had multiple endoscopies in the past. He has a history of mesenteric ischemia, hemorrhoids. He has no history of kidney disease, cancer, psychiatric illness. PHYSICAL EXAMINATION: GENERAL: Revealed a middle-aged male, appearing in no acute distress. VITAL SIGNS: He had a blood pressure of only 100/60, pulse is 80. He is afebrile. HEENT: He is anicteric. Conjunctivae pink. Mucous members moist. NECK: Veins nondistended. No carotid bruits. CHEST: Clear to auscultation. CARDIOVASCULAR: Regular rate and rhythm. ABDOMEN: Soft, nontender. EXTREMITIES: Had no edema. Posterior tibial pulse 2+ bilaterally. SKIN: Warm, dry. LABORATORY DATA: ECG showed a sinus rhythm, rightward axis, evidence of previous anterior infarction. No acute ST or T-wave changes. Workup in the Emergency Room, he had a portable chest x-ray that showed no evidence of heart failure. His lab work, sodium 136, creatinine 1.3. Liver function studies were normal. Troponins were all 0.06. His white blood cell count 6.3, hemoglobin 12.3. IMPRESSION AND RECOMMENDATIONS: 1. Coronary artery disease. The patient has had multiple stents. I will await the results of the nuclear imaging performed yesterday. 2. Cardiomyopathy. The patient has been on a beta-erin, Entresto and Lasix. I would recommend adding spironolactone. 3. Ischemic colitis. The patient followed by GI. 4. Previous removal of a colon polyp. 5. Previous tobacco abuse. 6. Hyperlipidemia. The patient is on a statin drug. 7. High degree AV block. The patient has a pacemaker in place. <ELECTRONICALLY SIGNED> By: Armin Barrios MD, FACC 11/05/17 1818 0814 1427Daviruby Barrios MD, FACC /nt
[2017-12-05] MEDS ORDERED: CARVEDILOL3.125 MG PO (08:55)
[2017-12-26] MEDS ORDERED: MEDROLDOSEPACK PO (10:03)
== END 2017-11-01 14:55 | disposition home or self-care (01) | DRG 303 ==
LOC: M.ERS 16:17 → M.2W 16:59 → M.TBA-ER 16:59 → M.2W 19:45
PROVIDERS: Family Medicine; ADMIT Internal Medicine
DX: I25.119 Atherosclerotic heart disease of native coronary artery with unspecified angina pectoris (principal); I50.42 Chronic combined systolic (congestive) and diastolic (congestive) heart failure; K55.1 Chronic vascular disorders of intestine; I42.9 Cardiomyopathy, unspecified; J44.9 Chronic obstructive pulmonary disease, unspecified; I11.0 Hypertensive heart disease with heart failure; K57.90 Diverticulosis of intestine, part unspecified, without perforation or abscess without bleeding; E78.5 Hyperlipidemia, unspecified; I44.30 Unspecified atrioventricular block; I25.2 Old myocardial infarction; Z90.49 Acquired absence of other specified parts of digestive tract; Z98.61 Coronary angioplasty status; Z95.810 Presence of automatic (implantable) cardiac defibrillator; Z79.899 Other long term (current) drug therapy; Z79.82 Long term (current) use of aspirin; Z88.8 Allergy status to other drugs, medicaments and biological substances; Z82.49 Family history of ischemic heart disease and other diseases of the circulatory system; Z87.891 Personal history of nicotine dependence

== ENCOUNTER 2017-12-03 21:39 | Inpatient (IN) | payer OTHER ==
[~2017-12-03] VITALS: Ht 167.6 cm; Wt 75.7 kg
[~2017-12-03 21:39] MED LIST changes: +PERCOCET 10-321 EACH PO
[2017-12-03 21:42] VITALS: BP 133/83
[2017-12-03 21:59] LABS: ABSOLUTE BASOPHILS 0.1 thou/uL (0.0-0.2); ABSOLUTE EOSINOPHILS 0.5 thou/uL (0.0-0.7); ABSOLUTE LYMPHOCYTES 1.1 thou/uL (0.8-5.3); ABSOLUTE MONOCYTES 0.6 thou/uL (0.0-1.2); ABSOLUTE NEUTROPHILS 3.5 thou/uL (1.6-8.1); BASOPHILS 1.4 %; EOSINOPHILS 8.5 %; HEMATOCRIT 36.1 % (42.0-52.0); HEMOGLOBIN 12.5 gm/dL (14.0-18.0); LYMPHOCYTES 19.2 %; MCH 30.4 pg (26.0-34.0); MCHC 34.6 g/dL (28.0-37.0); MCV 87.9 fL (80.0-100.0); MONOCYTES 10.5 %; MPV 6.9 fl. (7.2-11.1); NUCLEATED RBCS 0 /100WBC; PLATELET COUNT* 323 thou/uL (150-400); POLYS 60.4 %; RBC 4.11 mil/uL (4.50-6.00); RDW-CV 13.1 % (10.5-14.5); WBC 5.8 thou/uL (4.0-11.0)
[2017-12-03 22:09] LABS: ANION GAP 7 mmol/L (7-16); BUN 16 mg/dL (7-18); CALCIUM 8.6 mg/dL (8.5-10.1); CHLORIDE 100 mmol/L (98-107); CO2 29 mmol/L (21-32); CREATININE 1.3 mg/dL (0.6-1.3); GLUCOSE 131 mg/dL (70-99); POTASSIUM 3.1 mmol/L (3.5-5.1); SODIUM 136 mmol/L (136-145)
[2017-12-03 22:12] LABS: PROTIME 10.2 Seconds (9.20-11.50)
[2017-12-03 22:21] LABS: ALBUMIN 3.3 g/dL (3.4-5.0); ALKALINE PHOSPHATASE 142 U/L (46-116); LIPASE 192 U/L (73-393); NT-PRO BRAIN NAT PEPTIDE 1053 pg/mL (<300); SGOT 17 U/L (15-37); SGPT 17 U/L (30-65); TOTAL BILIRUBIN 0.4 mg/dL (<0.1-1.0); TOTAL PROTEIN 7.2 g/dL (6.4-8.2); TROPONIN-I LEVEL <0.06 ng/mL (<0.06)
[2017-12-03 23:55] VITALS: BP 106/70
[2017-12-04] VITALS (18 sets, daily range): BP systolic 92–119; BP diastolic 60–77
[2017-12-04 05:24] LABS: HEMATOCRIT 31.6 % (42.0-52.0); HEMOGLOBIN 10.8 gm/dL (14.0-18.0); MCH 30.1 pg (26.0-34.0); MCHC 34.3 g/dL (28.0-37.0); MCV 87.9 fL (80.0-100.0); MPV 7.1 fl. (7.2-11.1); RBC 3.6 mil/uL (4.50-6.00); RDW-CV 12.9 % (10.5-14.5); WBC 5.5 thou/uL (4.0-11.0)
[2017-12-04 06:12] LABS: ALBUMIN 2.9 g/dL (3.4-5.0); CALCIUM 8.1 mg/dL (8.5-10.1); CREATININE 1.2 mg/dL (0.6-1.3); POTASSIUM 3.5 mmol/L (3.5-5.1); TOTAL BILIRUBIN 0.4 mg/dL (<0.1-1.0); TOTAL PROTEIN 5.8 g/dL (6.4-8.2)
--- NOTE | 2017-12-04 10:32 | EKG ---
[place] [address] ELECTROCARDIOGRAM REPORT Name: RONNY YEAGER Room: [address] ADM IN M.R.#: [id number] Admission: 12/03/17 Attend Phys: Edvin Shea MD Discharge: Date of : 51 Report #: [id number] THIS REPORT FOR: //name// [facility] ED Test Date: 2017-12-03 Test Time: 21:46:10 Pat Name: RONNY YEAGER Department: Room: [facility] Gender: M Licensing Manager: : 1955 Requested By: Jada Burr Order Number: [id number] MD: Armin Barrios Measurements Intervals [place] Rate: 96 P: 92 TN: 220 QRS: 98 QRSD: 150 T: -20 QT: 363 QTc: 459 Interpretive Statements Sinus rhythm supraventricular premature complex Prolonged [place] interval RBBB and LPFB Anterior infarct, old ST depr, consider ischemia, inferior leads Compared to ECG 11/01/2017 03:48:54 premature complex(es) now present Possible ischemia now present Myocardial infarct finding still present Electronically Signed On 12-04-2017 10:32:39 CDT by Armin Barrios [email or web address] <ELECTRONICALLY SIGNED> By: Armin Barrios MD, [facility] 12/04/17 1032 2146 Armin Barrios MD, [facility] /EPI
--- NOTE | 2017-12-04 10:34 | EKG ---
[place] [address] ELECTROCARDIOGRAM REPORT Name: RONNY YEAGER Room: [address] ADM IN M.R.#: [id number] Admission: 12/03/17 Attend Phys: Edvin Shea MD Discharge: Date of : 51 Report #: [id number] THIS REPORT FOR: //name// [facility] Test Date: 2017-12-04 Test Time: 04:12:14 Pat Name: RONNY YEAGER Department: Room: [address] Gender: M Customer Service Operator: : 1955 Requested By: Edvin Shea Order Number: [id number] Martha MD: Armin Barrios Measurements Intervals [place] Rate: 80 P: 73 [place]: 209 QRS: 102 QRSD: 156 T: 40 QT: 411 QTc: 475 Interpretive Statements Sinus rhythm RBBB and LPFB Probable anteroseptal infarct, old Electronically Signed On 12-04-2017 10:34:27 CDT by Armin Barrios [email or web address] <ELECTRONICALLY SIGNED> By: Armin Barrios MD, [facility] 12/04/17 1034 0412 0412 Armin Barrios MD, FACC /EPI
--- NOTE | 2017-12-04 10:34 | EKG ---
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
--- NOTE | 2017-12-04 15:53 | EKG ---
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: : 1955 Requested By: Armin Barrios Order Number: [id number] Martha MD: Armin Barrios Measurements Intervals [place] Rate: 87 P: 64 [place]: 224 QRS: 99 QRSD: 152 T: 34 QT: 398 QTc: 479 Interpretive Statements Sinus rhythm Prolonged [place] interval RBBB and LPFB Probable anteroseptal infarct, old Compared to ECG 12/04/2017 04:12:14 Myocardial infarct finding still present Electronically Signed On 12-04-2017 15:53:21 CDT by Armin Barrios [email or web address] <ELECTRONICALLY SIGNED> By: Armin Barrios MD, [facility] 12/04/17 1553 1427 1427 Armin Barrios MD, [facility] /EPI
--- NOTE | 2017-12-04 18:22 | CON ---
[address] [address] CONSULTATION Name: RONNY YEAGER Room: [address] IN M.R.#: [id number] Admission: 12/03/17 Attend Phys: Edvin Shea MD Discharge: Date of : 51 Report #: [id number] THIS REPORT FOR: //name// CC: Edvin Church DATE OF SERVICE: 12/04/2017 HISTORY OF PRESENT ILLNESS: The patient is a 62-year-old white male who I was asked to see in the hospital today after he complained of chest pain. The patient has an extensive past medical history. He initially presented last February with chest pain. He is found to have occluded LAD and had a drug-eluting stent placed. The next day, he had an episode of high-degree AV block and Dr. Booth implanted a permanent dual chamber pacemaker. The patient was then readmitted in March with chest pain. Cardiac catheterization showed no restenosis stent in the LAD. There is a long stenosis of the right coronary artery and I placed a drug-eluting stent in the right coronary artery. He was readmitted in May and Dr. Breen placed a new drug-eluting stent in the LAD. He then underwent upgrade of his pacemaker to defibrillator because he was found to have evidence of a cardiomyopathy. He was readmitted in 09/2017 with chest pain felt to be atypical for angina. He actually had a nuclear stress test in October. This showed evidence of scar, but no ischemia. The patient was discharged and states he was scheduled to see Dr. Breen in the office today. However, yesterday, he had an episode of chest pain. He came to the Emergency Room and was admitted. He denied the pain being related to food. He had some pain in his arm. He became diaphoretic, nauseated, short of breath. He notes exertional dyspnea and cough, but no fever. He has had some lightheadedness, but no discharges of defibrillator. PAST MEDICAL HISTORY: Significant for previous hernia repair, back surgery, cholecystectomy, hypertension, hyperlipidemia. MEDICATIONS: Consist of aspirin, Lipitor, carvedilol, Lasix, Isordil, omeprazole, oxycodone, Effient, Entresto, spironolactone. ALLERGIES: He has no known drug allergies. FAMILY HISTORY: Positive for heart disease. SOCIAL HISTORY: He is . He and his live in [place], [place]. 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 Quit smoking. No alcohol abuse. REVIEW OF SYSTEMS: He has had no history of stroke, asthma. He does have peptic ulcer disease. No liver disease. He does have no kidney disease, no cancer, [place] [address] CONSULTATION Name: RONNY YEAGER Room: [address] IN .R.#: [id number] Admission: 12/03/17 Attend Phys: Edvin Shea MD Discharge: Date of : 51 Report #: [id number] PHYSICAL EXAMINATION: GENERAL: Revealed a middle-aged male, appeared in no acute distress. VITAL SIGNS: He had a blood pressure of 100/70, pulse 70, he is afebrile. HEENT: He was anicteric. Conjunctivae pink. Mucous membranes moist. NECK: Veins not distended. No carotid bruits. Neck supple. CHEST: Clear to auscultation. CARDIOVASCULAR: Regular rate and rhythm. ABDOMEN: Soft, nontender. EXTREMITIES: Had no edema. SKIN: Warm, dry. NEUROLOGIC: Nonfocal. LYMPHATIC: No adenopathy. MUSCULOSKELETAL: No joint effusions. His ECG showed a sinus rhythm with right bundle branch block, evidence of previous anterior infarction. His chest x-ray showed interstitial lung markings, appeared prominent defibrillator in place, no acute findings. LABORATORY DATA: Sodium 136, creatinine 1.2. Troponin 0.06. White blood cell count 5.5, hemoglobin 10.8. IMPRESSION AND RECOMMENDATIONS: 1. Unstable angina. Recommend cardiac catheterization. 2. Cardiomyopathy. The patient is on a beta erin, Entresto, spironolactone. 3. Previous implantation of defibrillator. 4. Hypertension. The patient is on a beta erin and ARB. 5. Hyperlipidemia. The patient is on a statin drug. 6. Chronic back pain. 7. Previous tobacco abuse. 8. History of ischemic colitis. The patient followed by GI service. <ELECTRONICALLY SIGNED> By: Armin Barrios MD, [facility] 12/04/17 1822 0836 1237Davishy Barrios MD, FACC /nt
[2017-12-05] VITALS: BP 103/70
[2017-12-05 04:00] VITALS: BP 89/75
[2017-12-05 04:42] LABS: HEMATOCRIT 31.9 % (42.0-52.0); HEMOGLOBIN 10.9 gm/dL (14.0-18.0); MCH 30.3 pg (26.0-34.0); MCHC 34.3 g/dL (28.0-37.0); MCV 88.5 fL (80.0-100.0); MPV 7.2 fl. (7.2-11.1); RBC 3.61 mil/uL (4.50-6.00); RDW-CV 12.9 % (10.5-14.5); WBC 4.8 thou/uL (4.0-11.0)
[2017-12-05 05:18] LABS: ANION GAP 7 mmol/L (7-16); BUN 11 mg/dL (7-18); CHLORIDE 102 mmol/L (98-107); CHOLESTEROL 102 mg/dL (<200); CO2 28 mmol/L (21-32); GLUCOSE 96 mg/dL (70-99); HDL CHOLESTEROL 31 mg/dL (>40); LDL CHOLESTEROL 43 mg/dL (<100); MAGNESIUM 1.5 mg/dL (1.8-2.4); SODIUM 137 mmol/L (136-145); TC:HDL 3.3 Ratio (Not establshd); TRIGLYCERIDE 141 mg/dL (<150); TROPONIN-I LEVEL 0.13 ng/mL (<0.06); VLDL 28 mg/dL (<40)
[2017-12-05 05:30] LABS: SERUM ASSESSMENT Clear
[2017-12-05 05:34] VITALS: BP 112/85
[2017-12-05 07:30] VITALS: BP 111/71
[2017-12-05] MEDS ORDERED: CARVEDILOL3.125 MG PO ×2 (08:55)
[2017-12-05 10:15] VITALS: BP 106/61
--- NOTE | 2017-12-05 12:13 | CARD ---
[address] [address] CARDIAC CATH REPORT Name: RONNY YEAGER Room: [address] IN ..#: [id number] Admission: 12/03/17 Attend Phys: Edvin Shea MD Discharge: Date of : 51 Report #: [id number] THIS REPORT FOR: //name// APPROVED REPORT Study performed: 12/04/2017 11:21:47 Patient Details Patient Status: In-Patient Room #: The patient is a 62 year-old male Event Personnel Armin Barrios Caustic Operator, Xiomara Alcantara RTR Scrub, Shahida Leigh Monitor, Kandy King RTR Monitor, Nereyda Valerio RN Molder Offbearer, Stacey Saeed RN Molder Offbearer Procedures Performed cath pciArt Access - R radial artery Indication Unstable angina Risk Factors Coronary Artery Disease, Tobacco History () Previous Procedures/Diagnoses Previous PCI Admission/Lab Medications/Medications given during procedure Heparin Unfract. Procedure Narrative The patient was brought electively to the Cardiac Catheterization Laboratory and was prepped and draped in a sterile manner. The right wrist was infiltrated with 1% Lidocaine subcutaneous anesthesia. A 6 fr sheath was inserted into the right radial artery. Coronary angiography was performed using coronary diagnostic catheters. The right coronary system was accessed and visualized with a Diagnostic catheter. The left coronary system was accessed and visualized with a Diagnostic catheter. The left ventricle was accessed and visualized with a Diagnostic catheter. Left ventricular/Aortic Valve gradient assessed via catheter pullback. Left ventriculogram was performed in DEVI projection. Closure device was deployed with a 6 Fr vascband. The patient tolerated the procedure well and there were no complications associated with the procedure. There [place] [address] CARDIAC CATH REPORT Name: RONNY YEAGER Room: [address] IN [facility]#: [id number] Admission: 12/03/17 Attend Phys: Edvin Shea MD Discharge: Date of : 51 Report #: [id number] Intraoperative Conscious Sedation Sedation start time: 12:09 Case end Time: 12:50 Versed 2 mg Dose: 635 mGy Contrast Type and Amount: Omnipaque 115 ml Coronary Angiography The patient's coronary anatomy is right dominant. Diagnostic Cath Left Main 0% stenosis LAD proximal stent had a 30% restenosis OM2 40% stenosis Right Coronary proximal stent had 0% stenosis, but a distal 70% edge stenosis was noted Left Ventriculography The left ventricular ejection fraction is estimated to be 15-20%. Left ventricular wall motion abnormalities are present. There is no mitral insufficiency. akinesis noted of the mid and distal anteroapical wall IVUS Anticoagulation was achieved with Heparin. Fractional Flow [place] was performed on the mid right coronary artery vessel. A 6 fr jcr4 Guide Catheter was used to engage the rca ostium. A FFR wire was used. IVUS Findings baseline FFR was 0.87. After 1 minute of IV adenosine, FFR was 0.72 Hemodynamics The aortic pressure is 84/63 mmHg with a mean of 71 mmHg. The left ventricular pressure is 87/1 mmHg with a mean of mmHg. The left ventricular end diastolic pressure is 10 mmHg. There was no gradient across the aortic valve upon pullback. Pullback from the left ventricle to the aorta revealed no gradient across the aortic valve. PCI Technique Lesion Anticoagulation was achieved with Heparin. Percutaneous coronary intervention was performed on the mid right [place] [address] CARDIAC CATH REPORT Name: RONNY YEAGER QUYNH Room: [address] IN [facility]#: [id number] Admission: 12/03/17 Attend Phys: Edvin Shea MD Discharge: Date of : 51 Report #: [id number] lesion stenosis prior to intervention was 70% with JEFF 3 flow. A 6 fr jcr4 Guide Catheter was used to engage the rca ostium. A radi Interventional Guidewire was used to cross the lesion. STENT DEPLOYMENT A drug-eluting stent 3.5 x 12 mm was inserted and inflated up to 22atm for 15seconds. Repeat angiography revealed the following post-stent deployment results: o% stenosis. Additional Inflation: 20.00atm for 19seconds. Final angiography reveals 0 % stenosis with JEFF 3 flow. PCI Technique Lesion The lesion stenosis prior to intervention was mid right coronary artery% with JEFF 6 fr jcr4 flow. A rca Guide Catheter was used to engage the ostium. A FFR wire Interventional Guidewire was used to cross the lesion. BALLOON DILATION A Balloon catheter baseline FFR was 0.87. After 1 minute of IV adenosine, FFR was 0.72 was inserted and inflated up to donna for seconds. Conclusion 1. no restenosis noted of the stent in the proximal lad 2. no restenosis noted of the stent in the proximal rca, although a 70% distal edge stenosis was noted 3. successful placement of a drug eluting stent in the mid rca Recommendations Smoking Cessation Cardiac Rehabilitation Referral Aggressive Medical Therapy Medications Administered Prasugrel <ELECTRONICALLY SIGNED> By: Armin Barrios MD, [facility] 12/05/17 1213 12 1213Deric Barrios MD, FACC /INF
--- NOTE | 2017-12-05 17:21 | EKG ---
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 Technologist: : 1955 Requested By: Armin Barrios Order Number: [id number] Martha MD: Ja Booth Measurements Intervals [place] Rate: 99 P: 33 MD: 192 QRS: 96 QRSD: 144 T: 10 QT: 368 QTc: 473 Interpretive Statements Sinus tachycardia Ventricular premature complex RBBB and LPFB Probable anteroseptal infarct, old Compared to ECG 12/04/2017 14:27:43 Ventricular premature complex(es) now present First degree AV block no longer present Myocardial infarct finding still present Electronically Signed On 12-05-2017 17:20:55 CDT by Ja Booth [email or web address] <ELECTRONICALLY SIGNED> By: Ja Booth MD, FACC 12/05/17 1720 7 7 Ja Booth MD, FACC /EPI
== END 2017-12-05 13:33 | disposition home or self-care (01) | DRG 247 ==
LOC: M.ERS 21:39 → M.TBA-ER 23:02 → M.2W 23:02
PROVIDERS: Emergency Medicine; Internal Medicine Cardiovascular Disease
PROC: 4A023N7 Measurement of Cardiac Sampling and Pressure, Left Heart, Percutaneous Approach (ICD-10-PCS; principal; 2017-12-05)
PROC: B2151ZZ Fluoroscopy of Left Heart using Low Osmolar Contrast (ICD-10-PCS; principal; 2017-12-05)
PROC: B2111ZZ Fluoroscopy of Multiple Coronary Arteries using Low Osmolar Contrast (ICD-10-PCS; principal; 2017-12-05)
PROC: 027034Z Dilation of Coronary Artery, One Artery with Drug-eluting Intraluminal Device, Percutaneous Approach (ICD-10-PCS; principal; 2017-12-05)
DX: I25.110 Atherosclerotic heart disease of native coronary artery with unstable angina pectoris (principal); I50.22 Chronic systolic (congestive) heart failure; I11.0 Hypertensive heart disease with heart failure; K57.90 Diverticulosis of intestine, part unspecified, without perforation or abscess without bleeding; I42.9 Cardiomyopathy, unspecified; E78.5 Hyperlipidemia, unspecified; G89.29 Other chronic pain; I25.2 Old myocardial infarction; M54.9 Dorsalgia, unspecified; E87.6 Hypokalemia; J44.9 Chronic obstructive pulmonary disease, unspecified; E83.42 Hypomagnesemia; Z95.5 Presence of coronary angioplasty implant and graft; Z87.891 Personal history of nicotine dependence; Z79.82 Long term (current) use of aspirin; Z79.899 Other long term (current) drug therapy; Z90.49 Acquired absence of other specified parts of digestive tract; Z95.810 Presence of automatic (implantable) cardiac defibrillator; Z82.49 Family history of ischemic heart disease and other diseases of the circulatory system

== ENCOUNTER → 2017-12-21 | Outpatient (CLI) | payer OTHER ==
[~2017-12-21] MED LIST changes: +AMITRIPTYLINE H25 M2 PO; +HYDROCODONE-AP1 EAC6 PO; +LISINOPRIL5 MG PO; +MEDROLDOSEPACK PO; +NORCO 5-325 TA1 EACH PO; +PANTOPRAZOLE SO40 M1 PO; +PHENERGAN 25 MG25 M1 PO; +PRENATAL PO; +PROTONIX40 M1 PO; +RANEXA500 MG PO; +REGLAN 10 MG TA10 MG PO; +SCOPOLAMINE1 EACH TRANSDERM; +SENNA PLUS TAB1 EACH PO; +TRANSDERM-SCOP1 EACH TRANSDERM; +ZOFRAN ODT4 MG SUBLING
[2017-12-21 16:19] LABS: CALCIUM 9.1 mg/dL (8.5-10.1); CREATININE 1.4 mg/dL (0.6-1.3); POTASSIUM 4.3 mmol/L (3.5-5.1)
== END ==
LOC: M.LAB 15:47
PROVIDERS: Nurse Practitioner
DX: I11.0 Hypertensive heart disease with heart failure (principal); I50.40 Unspecified combined systolic (congestive) and diastolic (congestive) heart failure; J44.9 Chronic obstructive pulmonary disease, unspecified

== ENCOUNTER 2017-12-25 20:17 | Observation (INO) | payer OTHER ==
[~2017-12-25] VITALS: Ht 167.6 cm; Wt 73.0 kg
[~2017-12-25 20:17] MED LIST changes: -AMITRIPTYLINE H25 M2 PO; -HYDROCODONE-AP1 EAC6 PO; -LISINOPRIL5 MG PO; -MEDROLDOSEPACK PO; -NORCO 5-325 TA1 EACH PO; -PANTOPRAZOLE SO40 M1 PO; -PHENERGAN 25 MG25 M1 PO; -PRENATAL PO; -PROTONIX40 M1 PO; -RANEXA500 MG PO; -REGLAN 10 MG TA10 MG PO; -SCOPOLAMINE1 EACH TRANSDERM; -SENNA PLUS TAB1 EACH PO; -TRANSDERM-SCOP1 EACH TRANSDERM; -ZOFRAN ODT4 MG SUBLING
[2017-12-25 20:34] VITALS: BP 123/75
[2017-12-25 20:38] LABS: ABSOLUTE BASOPHILS 0.1 thou/uL (0.0-0.2); ABSOLUTE EOSINOPHILS 0.5 thou/uL (0.0-0.7); ABSOLUTE LYMPHOCYTES 1.6 thou/uL (0.8-5.3); ABSOLUTE MONOCYTES 0.9 thou/uL (0.0-1.2); ABSOLUTE NEUTROPHILS 5.7 thou/uL (1.6-8.1); BASOPHILS 1.4 %; EOSINOPHILS 5.9 %; HEMATOCRIT 39.3 % (42.0-52.0); HEMOGLOBIN 13.2 gm/dL (14.0-18.0); MCH 29.8 pg (26.0-34.0); MCHC 33.6 g/dL (28.0-37.0); MCV 88.5 fL (80.0-100.0); MONOCYTES 10.3 %; NUCLEATED RBCS 0 /100WBC; PLATELET COUNT* 409 thou/uL (150-400); POLYS 64.4 %; RBC 4.44 mil/uL (4.50-6.00); RDW-CV 12.4 % (10.5-14.5); WBC 8.9 thou/uL (4.0-11.0)
[2017-12-25 20:51] LABS: INR 1.1; PROTIME 10.7 Seconds (9.20-11.50)
[2017-12-25 20:53] LABS: ANION GAP 10 mmol/L (7-16); BUN 19 mg/dL (7-18); CALCIUM 8.6 mg/dL (8.5-10.1); CHLORIDE 97 mmol/L (98-107); CO2 28 mmol/L (21-32); CREATININE 1.7 mg/dL (0.6-1.3); GLUCOSE 105 mg/dL (70-99); POTASSIUM 3.9 mmol/L (3.5-5.1); SODIUM 135 mmol/L (136-145)
[2017-12-25 21:03] LABS: ALBUMIN 3.7 g/dL (3.4-5.0); ALKALINE PHOSPHATASE 142 U/L (46-116); LIPASE 114 U/L (73-393); NT-PRO BRAIN NAT PEPTIDE 995 pg/mL (<300); SGOT 20 U/L (15-37); SGPT 16 U/L (30-65); TOTAL BILIRUBIN 0.9 mg/dL (<0.1-1.0); TOTAL PROTEIN 8.3 g/dL (6.4-8.2); TROPONIN-I LEVEL <0.06 ng/mL (<0.06)
[2017-12-25 22:30] LABS: URINE BILIRUBIN NEGATIVE (Negative); URINE BLOOD NEGATIVE (Negative); URINE CLARITY CLEAR; URINE COLOR YELLOW; URINE GLUCOSE-RANDOM NEGATIVE (Negative); URINE KETONES NEGATIVE (Negative); URINE LEUKOCYTES-REFLEX NEGATIVE (Negative); URINE NITRITE-REFLEX NEGATIVE (Negative); URINE PROTEIN NEGATIVE (Negative); URINE UROBILINOGEN 0.2 E.U./dl (0.2-1.0)
[2017-12-25 23:00] VITALS: BP 120/78
[2017-12-26 04:00] VITALS: BP 93/65
[2017-12-26 08:00] VITALS: BP 91/66
--- NOTE | 2017-12-26 09:39 | EKG ---
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 : 1955 Requested By: Jada Burr Order Number: [id number] MD: Kalyan Duran Measurements Intervals [place] Rate: 74 P: 60 IN: 227 QRS: 99 QRSD: 145 T: -12 QT: 399 QTc: 443 Interpretive Statements Sinus rhythm Multiple premature complexes, vent & supraven Prolonged [place] interval RBBB and LPFB Probable anteroseptal infarct, old ST depr, consider ischemia, inferior leads Baseline wander in lead(s) V6 Compared to ECG 12/05/2017 08:18:01 First degree AV block now present Possible ischemia now present Sinus tachycardia no longer present Ventricular premature complex(es) no longer present Myocardial infarct finding still present Electronically Signed On 12-26-2017 9:39:31 CDT by Kalyan Duran [email or web address] <ELECTRONICALLY SIGNED> By: Kalyan Duran MD, [facility] 12/26/17 0939 23 23 Kalyan Duran MD, [facility] /EPI
[2017-12-26] MEDS ORDERED: MEDROLDOSEPACK PO ×2 (10:03)
[2017-12-26 11:57] VITALS: BP 92/65
[2017-12-26 12:16] VITALS: BP 92/65
[2017-12-26 15:24] VITALS: BP 109/68
--- NOTE | 2017-12-26 16:54 | EKG ---
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 : 1955 Requested By: Xu Scherer Order Number: [id number] Reading MD: Kalyan Duran Measurements Intervals [place] Rate: 100 P: 16 DC: 194 QRS: 99 QRSD: 157 T: -46 QT: 371 QTc: 479 Interpretive Statements Sinus tachycardia RBBB and LPFB Probable anteroseptal infarct, old Compared to ECG 12/25/2017 20:24:33 Sinus rhythm no longer present First degree AV block no longer present Possible ischemia no longer present Myocardial infarct finding still present Electronically Signed On 12-26-2017 16:54:42 CDT by Kalyan Duran [email or web address] <ELECTRONICALLY SIGNED> By: Kalyan Duran MD, [facility] 12/26/17 1654 41 41 Kalyan Duran MD, [facility] /EPI
--- NOTE | 2017-12-27 12:57 | CON ---
[address] [address] CONSULTATION Name: RONNY YEAGER Room: [address] Priscilla Radford#: [id number] Admission: 12/25/17 Attend Phys: Racquel Cisse Discharge: 12/26/17 Date of : 51 Report #: [id number] THIS REPORT FOR: //name// CC: Xu Joshi DATE OF SERVICE: 12/25/2017 CHIEF COMPLAINT: Left arm pain. HISTORY OF PRESENT ILLNESS: The patient is a 62-year-old man with history of coronary artery disease and prior PCI to his right coronary artery earlier this month. At that time, he was presenting with both chest pain and arm pain since his PCI chest pain has resolved, but he still has persistent in left arm. It is with use. He has some mild weakness there, but denies facial numbness, weakness, slurred speech or leg weakness. He denies palpitations or heart racing. He presents in a sinus rhythm with PVCs. He was admitted for chest pain and his cardiac troponin levels are normal. He has been compliant with his medical therapy. He has not missed any of his dual antiplatelet therapies. He is a former smoker until earlier last year. PAST MEDICAL HISTORY: Coronary artery disease, status post PCI to his right coronary artery. He has history of COPD, hypertension, diverticulitis, and ischemic cardiomyopathy. PAST SURGICAL HISTORY: Prior cholecystectomy, status post ICDs. HOME MEDICATIONS: Include Aldactone 25 mg daily, prasugrel 10 mg daily, atorvastatin 40 mg and Coreg 3.125 mg p.o. b.i.d. ALLERGIES: He has no known drug allergies. SOCIAL HISTORY: As above. He had been a smoker for several years, but quit earlier this year. He is a nondrinker. His was admitted for chest pain. REVIEW OF SYSTEMS: CONSTITUTIONAL: No fevers or chills. EYES: Denies blurry vision or loss of vision. THROAT: Denies any dysphagia. SKIN: No rashes. CARDIOVASCULAR: No chest pain, no orthopnea, no PND. PULMONARY: Positive shortness of breath, no wheezing or cough. MUSCULOSKELETAL: No edema. Positive left [place] [address] CONSULTATION Name: RONNY YEAGER Room: [address] Priscilla Radford#: [id number] Admission: 12/25/17 Attend Phys: Racquel Cisse Discharge: 12/26/17 Date of : 51 Report #: [id number] NEUROLOGIC: Denies slurred speech, visual changes, seizures. HEMATOLOGIC: No anemia or bleeding disorders. RENAL: No history of kidney failure. PHYSICAL EXAMINATION: VITAL SIGNS: Blood pressure is 91/66, pulse 92, temperature is 37.1, respiratory rate 16. GENERAL: Pleasant middle-aged male. He is alert, in no apparent distress. HEENT: Eyes, EOMs intact. No facial asymmetry. NECK: Supple. No jugular venous distention. CARDIOVASCULAR: Regular. I cannot hear a murmur or S3. LUNGS: Clear to auscultation bilaterally with diminished breath sounds. ABDOMEN: Nontender. EXTREMITIES: His right dorsalis pedis pulses are +2 and +1 in the left side. There is no cyanosis. There is no abnormal blanching. Pulses distally, femoral pulses are normal. Dorsalis pedis pulses are +1-2 bilaterally, but symmetric. SKIN: There is no peripheral edema. NEUROLOGIC: There are no focal deficits. LABORATORY DATA: Electrocardiogram demonstrates a sinus rhythm, mild IVCD. Sodium is 135, potassium is 3.9, chloride is 97, BUN is 19, creatinine is 1.7, glucose is 105. AST is 20, ALT is 16. Troponin I is 0.06, hemoglobin is 13.2, INR is 1.1. IMPRESSION AND PLAN: 1. Left arm pain. There is a pulse deficit. He has a significant cardiovascular risk factors and vascular risk factors. I ordered an arterial Doppler of his left arm. He may also have C-spine compression type abnormalities and may need an outpatient EMG if his blood flow is normal. 2. Coronary artery disease. He has ruled out for an acute myocardial infarction and his symptoms seem less typical for angina. I do not think he needs any further testing as he has been compliant with his Effient and has been without smoking since his percutaneous coronary intervention. 3. Cardiomyopathy. Continue with current medical therapy, but if he does have significant peripheral vascular disease, he may benefit from a slightly higher blood pressure. 4. Acute kidney injury, I rehydrate him. <ELECTRONICALLY SIGNED> By: Kalyan Duran MD, FACC 12/27/17 1257 0922 [id number] Duran MD, FACC /nt
== END 2017-12-26 18:00 | disposition home or self-care (01) ==
LOC: M.ERS 20:17 → M.TBA-ER 22:23 → M.2W 22:23
PROVIDERS: Emergency Medicine; ADMIT Internal Medicine
DX: M47.22 Other spondylosis with radiculopathy, cervical region (principal); G89.29 Other chronic pain; I25.5 Ischemic cardiomyopathy; N17.9 Acute kidney failure, unspecified; I25.10 Atherosclerotic heart disease of native coronary artery without angina pectoris; Z95.5 Presence of coronary angioplasty implant and graft; I13.0 Hypertensive heart and chronic kidney disease with heart failure and stage 1 through stage 4 chronic kidney disease, or unspecified chronic kidney disease; N18.3 Chronic kidney disease, stage 3 (moderate); I50.22 Chronic systolic (congestive) heart failure; R73.03 Prediabetes; J44.9 Chronic obstructive pulmonary disease, unspecified; I25.2 Old myocardial infarction; Z87.891 Personal history of nicotine dependence; Z95.810 Presence of automatic (implantable) cardiac defibrillator

== ENCOUNTER 2018-01-22 17:21 | Inpatient (IN) | payer OTHER ==
[~2018-01-22] VITALS: Ht 167.6 cm; Wt 78.5 kg
[~2018-01-22 17:21] MED LIST changes: +MEDROLDOSEPACK PO
[2018-01-22 17:26] VITALS: BP 126/63
[2018-01-22] MEDS ORDERED: LISINOPRIL5 MG PO (17:30)
[2018-01-22 17:52] LABS: ABSOLUTE BASOPHILS 0.1 thou/uL (0.0-0.2); ABSOLUTE EOSINOPHILS 0.5 thou/uL (0.0-0.7); ABSOLUTE LYMPHOCYTES 1.1 thou/uL (0.8-5.3); ABSOLUTE MONOCYTES 0.7 thou/uL (0.0-1.2); ABSOLUTE NEUTROPHILS 8.1 thou/uL (1.6-8.1); BASOPHILS 0.9 %; EOSINOPHILS 4.6 %; HEMATOCRIT 37.1 % (42.0-52.0); HEMOGLOBIN 12.3 gm/dL (14.0-18.0); LYMPHOCYTES 10.1 %; MCH 29.4 pg (26.0-34.0); MCHC 33.2 g/dL (28.0-37.0); MCV 88.6 fL (80.0-100.0); NUCLEATED RBCS 0 /100WBC; PLATELET COUNT* 381 thou/uL (150-400); POLYS 77.4 %; RBC 4.19 mil/uL (4.50-6.00); RDW-CV 12.8 % (10.5-14.5); WBC 10.5 thou/uL (4.0-11.0)
[2018-01-22 17:57] LABS: ANION GAP 9 mmol/L (7-16); BUN 18 mg/dL (7-18); CALCIUM 8.3 mg/dL (8.5-10.1); CHLORIDE 95 mmol/L (98-107); CO2 29 mmol/L (21-32); CREATININE 1.4 mg/dL (0.6-1.3); GLUCOSE 156 mg/dL (70-99); POTASSIUM 3.7 mmol/L (3.5-5.1); SODIUM 133 mmol/L (136-145)
[2018-01-22 18:17] LABS: ALBUMIN 3.3 g/dL (3.4-5.0); ALKALINE PHOSPHATASE 109 U/L (46-116); CK-MB MASS 1.3 ng/mL (<0.5-3.6); LIPASE 156 U/L (73-393); MAGNESIUM 1.6 mg/dL (1.8-2.4); NT-PRO BRAIN NAT PEPTIDE 2020 pg/mL (<300); SGOT 18 U/L (15-37); SGPT 18 U/L (30-65); TOTAL BILIRUBIN 0.7 mg/dL (<0.1-1.0); TOTAL PROTEIN 7.6 g/dL (6.4-8.2); TROPONIN-I LEVEL <0.06 ng/mL (<0.06)
[2018-01-22 18:22] LABS: APTT 24.8 Seconds (25.0-31.3); PROTIME 10.4 Seconds (9.20-11.50)
--- NOTE | 2018-01-22 19:50 | NUR ---
CALLED REPORT TO XXAIJOE-RN ON TELE; PT TAKEN PER CART TO ROOM 205 PER RN
[2018-01-22 19:59] VITALS: BP 107/67
[2018-01-22 20:07] VITALS: BP 104/74
--- NOTE | 2018-01-22 22:29 | NUR ---
CALL TO DOCTOR REGARDING PATIENT'S PAIN AND HOME MEDS, SEE ORDERS.
[2018-01-23] VITALS (7 sets, daily range): BP systolic 89–110; BP diastolic 61–70
--- NOTE | 2018-01-23 04:22 | NUR ---
PATIENT RESTED IN BED, NO ACUTE CHANGES. PATIENT PAIN WAS TREATED WITH MEDS. FALL PRECAUTIONS IN PLACE, CALL LIGHT WITH IN REACH, HOURLY ROUNDING OBSERVED.
--- NOTE | 2018-01-23 09:12 | NUR ---
RECEIVED PT CARE 0700. HE IS ALERT AND ORIENTED X4. VSS. MECHANICAL FITTER TRACING SR WITH 1ST/BBB. HE IS UP AD PEDRO LUIS IN ROOM WITH BATHROOM PRIVILEDGES. GAIT IS STEADY. HE DENIES ANY SOA. O2 SAT 97% ON 2L NC, TITRATED TO ROOM AIR. AM ASSESSMENT CHARTED. MEDS PER MAR. CARVEDILOL HELD THIS AM DUE TO HIS CARDIO CONSULTATION, IF STRESS TEST ORDERED. HE C/O BACK PAIN THIS AM AND SOME CHEST DISCOMFORT. PRN PAIN MEDICATION GIVEN WITH PARTIAL RELIEF. CALL LIGHT WITHIN REACH. WILL CONTINUE TO MONITOR.
--- NOTE | 2018-01-23 11:31 | NUR ---
Pt is A&O. Resides at home with , at bedside. Pt is independent with ADLs. Pt has an electric wc for longer distances. Pt also has a cane, that he can uses as needed, Pt reports that he does not currently use his cane. Hx of outpt OT here at [facility], stated that Pt went for a while, then stopped going. No hx of HH or SNF. Hx of acute rehab at [facility]. Hx of cardiac rehab. Pt's goal is to return home at [place], no needs anticipated.
--- NOTE | 2018-01-23 13:03 | EKG ---
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 Keyer: : 1955 Requested By: Abelardo Joshi Order Number: [id number] MD: Kalyan Duran Measurements Intervals [place] Rate: 77 P: 69 [place]: 205 QRS: 99 QRSD: 153 T: 73 QT: 414 QTc: 469 Interpretive Statements Sinus rhythm Atrial premature complex Probable left atrial enlargement RBBB and LPFB Probable anteroseptal infarct, old Compared to ECG 12/26/2017 16:42:11 Atrial premature complex(es) now present Sinus tachycardia no longer present Myocardial infarct finding still present Electronically Signed On 01-23-2018 13:03:36 CDT by Kalyan Duran [email or web address] <ELECTRONICALLY SIGNED> By: Kalyan Duran MD, FACC 01/23/18 1303 16 16 Kalyan Duran MD, FAC /EPI
--- NOTE | 2018-01-23 13:03 | EKG ---
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 Analyst: CANDICE : 1955 Requested By: Grant Rodriguez Order Number: [id number] MD: Kalyan Duran Measurements Intervals [place] Rate: 90 P: 68 [place]: 198 QRS: 97 QRSD: 150 T: 52 QT: 390 QTc: 478 Interpretive Statements Sinus rhythm RBBB and LPFB Anterior infarct, old Compared to ECG 12/26/2017 16:42:11 Sinus tachycardia no longer present Myocardial infarct finding still present Electronically Signed On 01-23-2018 13:03:22 CDT by Kalyan Duran [email or web address] <ELECTRONICALLY SIGNED> By: Kalyan Duran MD, [facility] 01/23/18 1303 1726 1726 Kalyan Duran MD, [facility] /EPI
--- NOTE | 2018-01-23 16:50 | CARDNUC ---
[place] [address] CARDIAC NUCLEAR IMAGING REPORT Name: SHOBHARONNY QUYNH Room: [facility]- ADM IN [facility]#: [id number] Admission: 01/22/18 Attend Phys: Abelardo Joshi Discharge: Date of : 51 Date of Service: 01/23/18 1649 Report #: [id number] THIS REPORT FOR: //name// APPROVED REPORT Imaging Protocol: Rest Tc-99m/Stress Tc-99m 1 day Study performed: 01/23/2018 09:31:00 Indication: CHEST PAIN, SOA, CHF Patient Location: In-Patient Room #: 205 Stress Tech: Cordelia Dawkins Stress Nurse: Meryl Armendariz RN NM Tech:JANNETH Gerber Ht: 5 ft 6 in Wt: 164 lbs BSA: 1.84 m2 BMI: 26.46 Medical History Medical History: CHF, CHEST PAIN, SOA, COPD, CAD s/p stent,, Hyperlipidemia, HTN ICD, CAD s/p HI Medications: COREG, ASA 81MG, ATORVASTATIN, LISINOPRIL, EFFIENT, NTG Allergies: No known drug allergies Cardiac Risk Factors: Age, Past Smoker, HTN, FHX of CAD, Hyperlipidemia, SOB, Tobacco History (Former) Previous Cardiac Procedures: Myocardial infarction, ICD, PCI Pretest Chest Pain Characteristics: No chest pain Exercise History: Sedentary Meds Held (24 hrs): COREG Resting Data Rest SPECT myocardial perfusion imaging was performed in supine position 30 minutes following the intravenous injection of 12.0 mCi of Tc-99m Sestamibi. Time of rest injection: 1120 Date: 01/23/2018 Time of rest imagin The images were gated to evaluate regional wall motion and calculate left ventricular ejection fraction. Administration Route: IV Administration Site: Left AC Pharmacologic Stress Pharmacologic stress test was performed by injecting Regadenoson 0.4 mg IV push over 10-15 seconds immediately followed [place] [address] CARDIAC NUCLEAR IMAGING REPORT Name: RONNY YEAGER QUYNH Room: [address] IN [facility]#: [id number] Admission: 01/22/18 Attend Phys: Abelardo Joshi Discharge: Date of : 51 Date of Service: 01/23/18 1649 Report #: [id number] injection of 34.8 mCi of Tc-99m Sestamibi. Time of stress injection: 1325 Time of stress imagin Administration Route: IV Administration Site: Left AC Gated Stress SPECT was performed 40 minutes after stress injection. The images were gated to evaluate regional wall motion and calculate left ventricular ejection fraction. Prone imaging was performed. Stress Test Details Stress Test: Pharmacologic stress testing performed using 0.4 mg of regadenoson per 5 mL given IV over 10 seconds. Reason for pharmacologic stress test: physical limitation. HR Max Heart Rate (APMHR): 156 bpm Resting HR: 94 bpm Target HR (85% APMHR): 132 bpm Max HR Achieved: 94 bpm % of APMHR: 60 Recovery HR: 81 bpm HR response to stress: Normal HR response to stress BP Resting BP: 60/44 mmHg Recovery BP: 123/62 mmHg BP response to stress: Normal blood pressure response to stress. ECG Resting ECG: nsr extensive infarct Stress ECG: nsr ST Change: none Recovery ECG: nsr Recovery ST Change: none Clinical Reason for Termination: Completed protocol Stress Symptoms: Chest pain, Dyspnea, Dizziness, Fatigue, Lightheaded, Weakness, Hypotension Exercise duration: 0 min 0 sec Exercise capacity: 1.00 METs Nurse Comments Patient very hypotensive pre test (59/43), pt diaphoretic, patient stated he did feel right, Dr. Duran notified, [place] [address] CARDIAC NUCLEAR IMAGING REPORT Name: JOSEPHJULIANNERONNY QUYNH Room: [address] IN M.R.#: [id number] Admission: 01/22/18 Attend Phys: Abelardo Joshi Discharge: Date of : 51 Date of Service: 01/23/18 1649 Report #: [id number] Duran. Layed patient down on bed, continued to monitor B/P and heart rate. Lexiscan administered with isotope while NS bolus infused. Pt remained alert and responsive and improved with fluids. Pt color improved by end of test, IV caffeine was administered as well as coffee PO. Pt continued to improve but stated he was still weak but felt better. IV NS infusion was left intact and taken to Nuc Med and reported to floor nurse to continue fluids. Pt stable at end of test. B/P and HR WNL. Stress ECG Conclusion negative for ischemia Study Quality Study: Fair Artifact: Moderate Increased GI uptake Lung Uptake: Normal Study Data At rest, the left ventricular ejection fraction was 35%.. Post stress, the left ventricular ejection was 40%.. SSS: 13 SRS: 16 SDS: -3 TID = 0.99. Perfusion Review of SPECT images at rest reveal a large, severe intensity mid to distal anterior, septal and apical perfusion defect,and normal perfusion in all other segments. Images after vasodilator stress show that this defect is fixed, without periinfarct ischemia. This is compatible with an anterior HI. Images were reviewed using Easy [employer]. Wall Motion severe apical hypokinesis elevated end diastolic volume Nuclear Conclusion ECG Findings: negative for ischemia Clinical Findings: non-diagnostic Nuclear Findings: negative for ischemia Exercise Capacity: not assessed Left Ventricular Function: abnormal Risk Study: moderate to high risk Findings are compatible with a large anterior HI,without ischemia present, and at least moderate LV dysfunction. [address] [address] CARDIAC NUCLEAR IMAGING REPORT Name: RONNY YEAGER QUYNH Room: [address] IN [facility]#: [id number] Admission: 01/22/18 Attend Phys: Abelardo Joshi Discharge: Date of : 51 Date of Service: 01/23/181648 Report #: [id number] <Conclusion> negative for ischemia <ELECTRONICALLY SIGNED> By: Kalyan Duran MD, FACC 01/23/181648 48 48 Kalyan Duran MD, FACC /INF
[2018-01-24] VITALS: BP 103/67
[2018-01-24 04:00] VITALS: BP 106/68
--- NOTE | 2018-01-24 04:07 | NUR ---
PATIENT RESTED IN BED, NO ACUTE CHANGES. PATIENT DID NOT SHOW SIGNS OF DISTRESS. PATIENT IS NPO FOR CARDIOLOGY. FALL PRECAUTIONS IN PLACE, CALL LIGHT WITH IN REACH, HOURLY ROUNDING OBSERVED.
[2018-01-24 07:30] VITALS: BP 96/66
--- NOTE | 2018-01-24 10:07 | NUR ---
RECEIVED PT CARE 0700. HE IS ALERT AND ORIENTED X4. VSS. 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 HE DENIES ANY SOA. O2 SAT 96% ON ROOM AIR. C/O BACK AND CHEST DISCOMFORT, PRN PAIN MEDICATION GIVEN WITH GOOD RELIEF. AM ASSESSMENT CHARTED. MEDS PER MAR. CARDIOLOGY OK WITH DISCHARGING TODAY. WAITING FOR HOSPITALIST TO ROUND AND SEE THIS PATIENT. HE IS UP AD PEDRO LUIS IN HIS ROOM WITH BATHROOM PRIVILEDGES. HIS GAIT IS STEADY. WILL CONTINUE TO MONITOR.
[2018-01-24 12:00] VITALS: BP 96/66
[2018-01-24] MEDS ORDERED: RANEXA500 MG PO (12:07)
--- NOTE | 2018-01-24 12:26 | NUR ---
RECEIVED DISCHARGE ORDERS PER DR BUSTAMANTE. CARDIO OK WITH DC TODAY. IV DISCONTINUED. HAND CARVER REMOVED AND RETURNED TO NURSE'S DESK. EDUCATED PATIENT ON F/U WITH CARDIOLOGY AND HIS PRIMARY. EDUCATED ON HOME MEDICATIONS. NEW SCRIPT GIVEN WITH MEDICATION INFORMATION SHEETS. PATIENT ASKING FOR PAIN MEDICATIONS PRIOR TO DISCHARGING. PATIENTS IS PROVIDING TRANSPORTATION FOR THE PATIENT. HE IS LEAVING VIA WHEELCHAIR ACCOMPANIED BY NURSING STAFF AND HIS . ALL HIS BELONGINGS ARE PACKED AND LEAVING WITH THE PATIENT.
--- NOTE | 2018-01-24 17:22 | EKG ---
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: : 1955 Requested By: Abelardo Joshi Order Number: [id number] Reading MD: Himanshu Breen Measurements Intervals [place] Rate: 82 P: 51 MT: 232 QRS: 98 QRSD: 153 T: 67 QT: 404 QTc: 472 Interpretive Statements Sinus rhythm Ventricular premature complex Prolonged MT interval RBBB and LPFB Anterior infarct, old Compared to ECG 01/22/2018 20:17:00 Ventricular premature complex(es) now present First degree AV block now present Atrial premature complex(es) no longer present Myocardial infarct finding still present Electronically Signed On 01-24-2018 17:22:20 CDT by Himanshu Breen [email or web address] <ELECTRONICALLY SIGNED> By: Himanshu Breen MD, [facility] 01/24/18 1722 0508 0508 Himanshu Breen MD, [facility] /EPI
== END 2018-01-24 12:46 | disposition home or self-care (01) | DRG 302 ==
LOC: M.ERS 17:21 → M.TBA-ER 18:48 → M.2W 18:48
PROVIDERS: Emergency Medicine; ADMIT Internal Medicine
DX: I25.119 Atherosclerotic heart disease of native coronary artery with unspecified angina pectoris (principal); N17.0 Acute kidney failure with tubular necrosis; I50.22 Chronic systolic (congestive) heart failure; I13.0 Hypertensive heart and chronic kidney disease with heart failure and stage 1 through stage 4 chronic kidney disease, or unspecified chronic kidney disease; J44.9 Chronic obstructive pulmonary disease, unspecified; E78.5 Hyperlipidemia, unspecified; I25.5 Ischemic cardiomyopathy; N18.3 Chronic kidney disease, stage 3 (moderate); Z82.49 Family history of ischemic heart disease and other diseases of the circulatory system; Z87.891 Personal history of nicotine dependence; Z90.49 Acquired absence of other specified parts of digestive tract; I25.2 Old myocardial infarction; Z95.5 Presence of coronary angioplasty implant and graft; Z79.899 Other long term (current) drug therapy

== ENCOUNTER 2018-02-22 14:28 | Inpatient (IN) | payer OTHER ==
[~2018-02-22] VITALS: Ht 170.2 cm; Wt 80.7 kg
--- NOTE | ~2018-02-22 | PROC ---
[address] [address] PROCEDURE REPORT Name: RONNY YEAGER Room: [address] IN ..#: [id number] Admission: 02/22/18 Attend Phys: Josselin Villagomez MD Discharge: Date of : 51 Report #: [id number] THIS REPORT FOR: //name// For GI report, Please see Provation report in Perceptive 7 content. By: 0847Medical Records Staff YONI /YONNY
[~2018-02-22 14:28] MED LIST changes: +LISINOPRIL5 MG PO; +RANEXA500 MG PO
[2018-02-22 14:34] VITALS: BP 119/76
[2018-02-22 15:34] LABS: HEMATOCRIT 33.8 % (42.0-52.0); HEMOGLOBIN 11.4 gm/dL (14.0-18.0); MCH 29.6 pg (26.0-34.0); MCHC 33.7 g/dL (28.0-37.0); MCV 87.8 fL (80.0-100.0); MPV 6.8 fl. (7.2-11.1); NUCLEATED RBCS 0 /100WBC; PLATELET COUNT* 378 thou/uL (150-400); RBC 3.85 mil/uL (4.50-6.00); RDW-CV 12.7 % (10.5-14.5); WBC 7.2 thou/uL (4.0-11.0)
[2018-02-22 15:34] LABS: BE -0.5 mmol/L (-2 to +3); HCO3 23.3 mmol/L (22.0-26.0); PCO2 35.3 mmHg (35.0-45.0); PO2 93.8 mmHg (75.0-100.0); pH 7.438 (7.340-7.450)
[2018-02-22 15:47] LABS: INR 1.1; PROTIME 10.8 Seconds (9.20-11.50)
[2018-02-22 15:50] LABS: ANION GAP 3 mmol/L (7-16); BUN 31 mg/dL (7-18); CALCIUM 9.2 mg/dL (8.5-10.1); CHLORIDE 95 mmol/L (98-107); CO2 31 mmol/L (21-32); CREATININE 1.7 mg/dL (0.6-1.3); GLUCOSE 118 mg/dL (70-99); POTASSIUM 4.6 mmol/L (3.5-5.1); SODIUM 129 mmol/L (136-145)
[2018-02-22 15:54] LABS: ALBUMIN 3.3 g/dL (3.4-5.0); ALKALINE PHOSPHATASE 110 U/L (46-116); LIPASE 101 U/L (73-393); MAGNESIUM 1.7 mg/dL (1.8-2.4); NT-PRO BRAIN NAT PEPTIDE 1347 pg/mL (<300); SGOT 20 U/L (15-37); SGPT 17 U/L (30-65); TOTAL BILIRUBIN 0.9 mg/dL (<0.1-1.0); TOTAL PROTEIN 7.7 g/dL (6.4-8.2); TROPONIN-I LEVEL <0.06 ng/mL (<0.06)
[2018-02-22 16:04] LABS: ABSOLUTE EOSINOPHILS 0.1 thou/uL (0.0-0.7); ABSOLUTE LYMPHOCYTES 0.7 thou/uL (0.8-5.3); ABSOLUTE MONOCYTES 0.1 thou/uL (0.0-1.2); ABSOLUTE NEUTROPHILS 6.2 thou/uL (1.6-8.1); PLATELET ESTIMATE ADEQUATE
[2018-02-22 18:00] VITALS: BP 114/72
[2018-02-22 18:40] VITALS: BP 102/70
--- NOTE | 2018-02-22 19:05 | NUR ---
VSS, ASSUMED CARE OF PT FROM ER, PLACED TELE MONITOR ON HIM, PUT FALL PRECAUTIONS IN PLACE AND CALL LIGHT IN REACH, PT PT DENIES ANY PAIN AND IS UP WITH ONE, WILL FOLLOW WITH PLAN OF CARE.
[2018-02-22 20:03] VITALS: BP 100/61
[2018-02-23] VITALS (7 sets, daily range): BP systolic 91–108; BP diastolic 59–81
[2018-02-23 04:48] LABS: HEMATOCRIT 28.9 % (42.0-52.0); MCH 30.4 pg (26.0-34.0); MCHC 34.6 g/dL (28.0-37.0); MCV 87.9 fL (80.0-100.0); MPV 6.7 fl. (7.2-11.1); RBC 3.28 mil/uL (4.50-6.00); RDW-CV 12.9 % (10.5-14.5); WBC 6.3 thou/uL (4.0-11.0)
[2018-02-23 05:18] LABS: CALCIUM 8.2 mg/dL (8.5-10.1); CREATININE 1.4 mg/dL (0.6-1.3)
[2018-02-23 05:23] LABS: ALBUMIN 2.7 g/dL (3.4-5.0); MAGNESIUM 1.6 mg/dL (1.8-2.4); TOTAL BILIRUBIN 0.6 mg/dL (<0.1-1.0); TOTAL PROTEIN 5.9 g/dL (6.4-8.2)
--- NOTE | 2018-02-23 06:45 | NUR ---
PT IS ABLE TO COMMUNICATE HIS NEEDS TO STAFF EFFECTIVELY. CURRENT PAIN MEDICATION REGIMEN HAS BEEN ADEQUATE FOR CONTROLLING HIS PAIN UP TO THIS TIME. BIOTRONIC REP TO INTERROGATE HIS ICD THIS MORNING. ECHO THIS MORNING.
--- NOTE | 2018-02-23 12:10 | NUR ---
Pt is A&O. Resides at home with his , in room at bedside. Pt is independent, uses a cane for short distances and an electric scooter for community distances. Pt stated that they don't really get out of the house much, post a fall of their ramp, while helping his . does majority of the driving. No hx of HH or SNF. CM spoke with PT, they are recommending a walker. DC tool planner to fax order to Treva at [facility]. Goal is home at [place]. Following.
--- NOTE | 2018-02-23 12:21 | NUR ---
D/C TRIM SETTER FAXED HEATTHER WITH [employer] PATIENT'S FACESHEET, H&P, AND DME ORDER FOR WALKER. CM WILL REMAIN AVIALABLE TO ASSIST AND FOLLOW NEEDED.
--- NOTE | 2018-02-23 14:59 | 2DMMODE ---
[place] [address] 2 D/M-MODE ECHOCARDIOGRAM Name: RONNY YEAGER Room: [address] IN [facility]#: [id number] Admission: 02/22/18 Attend Phys: Josselin Villagomez, Discharge: Date of : 51 Date of Service: 02/23/18 1458 Report #: [id number] THIS REPORT FOR: //name// APPROVED REPORT Study performed: 02/23/2018 10:15:02 EXAM: Comprehensive 2D, Doppler, and color-flow Echocardiogram Patient Location: In-Patient Room #: 219 Status: routine BSA: 1.89 HR: 92 bpm BP: 108/81 mmHg Rhythm: NSR Other Information Study Quality: Good Indications Pacemaker Syncope Cardiomyopathy 2D Dimensions IVSd: 5.84 (7-11mm) LVOT Diam: 20.93 (18-24mm) LVDd: 58.08 mm PWd: 7.44 (7-11mm) Ascending Ao: 28.73 (22-36mm) LVDs: 48.09 (25-40mm) Aortic Root: 35.31 mm Volumes Left Atrial Volume (Systole) LA ESV Index: 22.40 mL/m2 Aortic Valve AoV Peak Joshua.: 1.24 m/s AO Peak Gr.: 6.16 mmHg LVOT Max P.67 mmHg AO Mean Gr.: 3.63 mmHg LVOT Mean P.25 mmHg LVOT Max V: 1.08 m/s AO V2 VTI: 22.99 cm LVOT Mean V: 0.68 m/s VIRGINIE (VTI): 2.92 cm2 LVOT V1 VTI: 19.49 cm Mitral Valve MV Decel. Time: 158.09 [place] [address] 2 D/M-MODE ECHOCARDIOGRAM Name: RONNY YEAGER Room: [address] IN ..#: [id number] Admission: 02/22/18 Attend Phys: Josselin Villagomez, Discharge: Date of : 51 Date of Service: 02/23/18 1458 Report #: [id number] MV PHT: 45.84 ms MVA (PHT): 4.80 cm2 TDI Lateral E' Joshua.: 0.13 m/s Pulmonary Valve PV Peak Joshua.: 1.30 m/s PV Peak Gr.: 6.71 mmHg Tricuspid Valve RAP Estimate: 5.00 mmHg TR Peak Gr.: 31.43 mmHg RVSP: 36.00 mmHg PA Pressure: 36.00 mmHg Left Ventricle Left ventricle is borderline dilated. There is akinesis of the anterior wall apex and mid to apical anteroseptal wall. There is normal left ventricular wall thickness. Left ventricular systolic function is moderately decreased. LVEF is 30-35%. This study is not technically sufficient to allow evaluation of the LV diastolic function. Right Ventricle The right ventricle is normal size. The right ventricular systolic function is normal. Pacemaker lead is present in the right ventricle. Atria The left atrium size is normal. The right atrium size is normal. Aortic Valve The aortic valve is normal in structure. No aortic regurgitation is present. There is no aortic valvular stenosis. Mitral Valve The mitral valve is normal in structure. Mild mitral regurgitation. No evidence of mitral valve stenosis. Tricuspid Valve The tricuspid valve is normal in structure. Mild tricuspid regurgitation. Mild pulmonary hypertension. Pulmonic Valve The pulmonary valve is normal in structure. [place] [address] 2 D/M-MODE ECHOCARDIOGRAM Name: RONNY YEAGER QUYNH Room: [address] IN [facility].#: [id number] Admission: 02/22/18 Attend Phys: Josselin Villagomez, Discharge: Date of : 51 Date of Service: 02/23/18 1458 Report #: [id number] Great Vessels The aortic root is normal in size. IVC is normal in size and collapses >50% with inspiration. Pericardium There is no pericardial effusion. <Conclusion> Left ventricle is borderline dilated. There is normal left ventricular wall thickness. Left ventricular systolic function is moderately decreased. LVEF is 30-35%. Pacemaker lead is present in the right ventricle. Mild mitral regurgitation. Mild tricuspid regurgitation. Mild pulmonary hypertension. <ELECTRONICALLY SIGNED> By: Ja Booth MD, FACC 02/23/18 1458 1458 1458 Ja Booth MD, FACC /INF
--- NOTE | 2018-02-23 17:57 | EKG ---
[place] [address] ELECTROCARDIOGRAM REPORT Name: RONNY YEAGER Room: [address] ADM IN M.R.#: [id number] Admission: 02/22/18 Attend Phys: Josselin Villagomez MD Discharge: Date of : 51 Report #: [id number] THIS REPORT FOR: //name// [facility] ED Test Date: 2018-02-22 Test Time: 14:34:14 Pat Name: RONNY YAEGER Department: Room: [address] Gender: M Wool Buyer: Mel HERNANDEZ : 1955 Requested By: Josselin Villagomez Order Number: [id number] Reading MD: Armin Barrios Measurements Intervals [place] Rate: 81 P: 82 [place]: 233 QRS: 101 QRSD: 161 T: -68 QT: 396 QTc: 460 Interpretive Statements Sinus rhythm Prolonged [place] interval Probable left atrial enlargement RBBB and LPFB Probable anterior infarct, age indeterminate Compared to ECG 01/24/2018 05:08:57 Ventricular premature complex(es) no longer present Myocardial infarct finding still present Electronically Signed On 02-23-2018 17:56:49 CDT by Armin Barrios [email or web address] <ELECTRONICALLY SIGNED> By: Armin Barrios MD, FACC 02/23/18 1756 1434 1434 Armin Barrios MD, FACC /EPI
--- NOTE | 2018-02-23 18:32 | NUR ---
vss, ASSUMED CARE IN THE AM, ASSESSMENT PERFORMED AND CHARTED, FALL PRECAUTIONS IN PLACE AND CALL LIGHT IN REACH, PT IS UP STAND BY, ON RA, TRACING SR ON THE MONITOR, PT STATES PAIN IN HIS BACK, PT IS GOAL IS TO SIT UP IN CHAIR AND WORK WITH PT/OT, HIS IS AT BED SIDE, HOURLY ROUNDS COMPLETED AND CHARTED CHECKED,
--- NOTE | 2018-02-23 23:01 | NUR ---
ASSUMED PT CARE REPORT RECEIVED FROM NURSE PT IS ALERT AWAKE ORIENTED X4 SINUS RYTHM 1ST AV BLOCK ON THE LOCAL SALES ASSOCIATE. ON 2 L NC. IV FLUID INFUSING. OXYCODONE GIVEN. WILL CONTINUE TO MONITOR.
[2018-02-24 05:00] LABS: HEMATOCRIT 27.8 % (42.0-52.0); HEMOGLOBIN 9.5 gm/dL (14.0-18.0); MCH 30.1 pg (26.0-34.0); MCHC 34.2 g/dL (28.0-37.0); MCV 88.1 fL (80.0-100.0); MPV 6.5 fl. (7.2-11.1); RBC 3.15 mil/uL (4.50-6.00); RDW-CV 12.5 % (10.5-14.5); WBC 5.9 thou/uL (4.0-11.0)
[2018-02-24 05:01] VITALS: BP 95/59
[2018-02-24 05:23] LABS: CALCIUM 8.3 mg/dL (8.5-10.1); CREATININE 1.1 mg/dL (0.6-1.3); MAGNESIUM 1.6 mg/dL (1.8-2.4); POTASSIUM 4.1 mmol/L (3.5-5.1)
--- NOTE | 2018-02-24 06:34 | NUR ---
MAGNESIUM REPLACEMENT GIVEN
[2018-02-24 09:00] VITALS: BP 104/66
[2018-02-24 12:00] VITALS: BP 98/61
[2018-02-24 16:00] VITALS: BP 118/71
[2018-02-24 18:35] LABS: URINE BILIRUBIN NEGATIVE (Negative); URINE BLOOD NEGATIVE (Negative); URINE CLARITY CLEAR; URINE COLOR YELLOW; URINE GLUCOSE-RANDOM NEGATIVE (Negative); URINE KETONES NEGATIVE (Negative); URINE LEUKOCYTES-REFLEX NEGATIVE (Negative); URINE NITRITE-REFLEX NEGATIVE (Negative); URINE PROTEIN NEGATIVE (Negative); URINE SPECIFIC GRAVITY <= 1.005 (1.005-1.030); URINE UROBILINOGEN 0.2 E.U./dl (0.2-1.0)
--- NOTE | 2018-02-24 18:39 | NUR ---
RECEIVED REPORT, ASSUMED CARE. PT A&0 X4, VSS, O2 SAT >90% ON RA, TITRTATED OFF 2L PER NC. PT ABLE TO USE 2L NC PRN. CIGARETTE MAKER IN PLACE TRACING SR WITH 1ST DEGREE AV BLOCK WITH PVC'S THIS SHIFT. PT DID HAVE A SIX MINUTE STRETCH WHERE PACER FIRED AFTER THE QRS COMPLEX - STRIP PLACED IN CHART. PT TOLERATING DIET. PT REPORTED BACK PAIN, ABDOMINAL PAIN AND LEFT THIGH PAIN THAT WAS MANAGED WITH PO PAIN MEDICATION WITH PARTIAL TO FULL RELIEF. PT COMPLETED ABDOMEN CT. PT TO HAVE EGD TOMORROW MORNING. AT BEDSIDE. PT CURRENTLY RESTING IN BED WATCHING TV. CALL LIGHT IS WITHIN REACH. HOURLY ROUNDING PERFORMED. FALL PRECAUTIONS IN PLACE. WCTM FOR DURATION OF SHIFT.
[2018-02-24 20:00] VITALS: BP 103/70
[2018-02-25] VITALS: BP 102/57
--- NOTE | 2018-02-25 03:53 | NUR ---
PT ALERT ORIENTED. UP TO BR WITH STAND BY ASSIST. TELEMETRY SHOWS SR. NPO AT MN FOR EGD. NS AT 100MLS/HR. ON RA. PAIN MEDICATION GIVEN TWICE.
[2018-02-25 04:07] VITALS: BP 104/59
[2018-02-25 08:00] VITALS: BP 107/68
[2018-02-25 11:41] VITALS: BP 114/69
[2018-02-25 16:00] VITALS: BP 100/61
--- NOTE | 2018-02-25 18:32 | NUR ---
PATINET RESTING IN BED. UP WITH STANDBY ASSIST. PATINET UNDERGOING BOWEL PREP FOR COLONOSCOPY TOMORROW. HOURLY ROUNDING COMPLETEDFOR PATIENT SAFETY.
[2018-02-26 00:22] VITALS: BP 116/65
--- NOTE | 2018-02-26 03:06 | NUR ---
UP TO BR WITH ASSIST. BOWEL PREP TAKEN. PT HAVING FREQUENT STOOLS. PT CALLING OUT TO GO TO BR BUT NOT PULLING CALL LIGHT FOR NURSE TO WALK PT BACK TO BED. PT REMINDED FREQUENTLY BY EYELET ROW MARKER AND RN TO WAIT FOR ASSIST. TELEMETRY SHOWS SR. PT TAKING OXYCODONE FOR CHRONIC BACK PAIN. NS AT 100MLS/HR. LAC IV SITE LEAKING. NEW IV IN LFA. WILL CONTINUE TO MONITOR.
[2018-02-26 04:00] VITALS: BP 103/65
[2018-02-26 07:56] VITALS: BP 141/89
[2018-02-26 13:38] VITALS: BP 109/53
[2018-02-26 15:32] VITALS: BP 115/66
--- NOTE | 2018-02-26 18:42 | NUR ---
PATINET RESTING IN BED. UP STANDBY ASSIST ONLY. COLONOSCOPY COMPLETED TODAY. GI RECOMMENDS ERCP TOMORROW BUT CARDIOLOGY DOES NOT WANT EFFIENT AND ASA HELD UNTIL AFTER 03/03/18 PATIENT HAD STENT PLACEMENT ON 12/01/17. VITAL SIGNS STABLE AND PATIENT IN NO APPARNET SIGNS OF DISTRESS. HOURLY ROUNDING COMPLETD FOR PATIENT ASAFETY.
[2018-02-26 20:55] VITALS: BP 124/71
[2018-02-27] VITALS (8 sets, daily range): BP systolic 104–127; BP diastolic 64–81
[2018-02-27 05:35] LABS: ABSOLUTE BASOPHILS 0.1 thou/uL (0.0-0.2); ABSOLUTE EOSINOPHILS 0.3 thou/uL (0.0-0.7); ABSOLUTE LYMPHOCYTES 0.8 thou/uL (0.8-5.3); ABSOLUTE MONOCYTES 0.5 thou/uL (0.0-1.2); ABSOLUTE NEUTROPHILS 2.8 thou/uL (1.6-8.1); BASOPHILS 1.5 %; EOSINOPHILS 6.7 %; HEMATOCRIT 25.6 % (42.0-52.0); HEMOGLOBIN 8.7 gm/dL (14.0-18.0); LYMPHOCYTES 18.2 %; MCH 30.5 pg (26.0-34.0); MCHC 33.9 g/dL (28.0-37.0); MCV 89.9 fL (80.0-100.0); MONOCYTES 11.4 %; MPV 6.9 fl. (7.2-11.1); NUCLEATED RBCS 0 /100WBC; PLATELET COUNT* 286 thou/uL (150-400); POLYS 62.2 %; RBC 2.85 mil/uL (4.50-6.00); RDW-CV 12.6 % (10.5-14.5); WBC 4.4 thou/uL (4.0-11.0)
[2018-02-27 05:52] LABS: INR 1.1; PROTIME 11.4 Seconds (9.20-11.50)
[2018-02-27 05:58] LABS: ALBUMIN 2.2 g/dL (3.4-5.0); CREATININE 1.2 mg/dL (0.6-1.3); POTASSIUM 3.7 mmol/L (3.5-5.1); TOTAL BILIRUBIN 0.5 mg/dL (<0.1-1.0); TOTAL PROTEIN 5.3 g/dL (6.4-8.2)
--- NOTE | 2018-02-27 08:09 | NUR ---
PT IS ABLE TO COMMUNICATE HIS NEEDS TO STAFF EFFECTIVELY. CURRENT PAIN MEDICATION REGIMEN HAS BEEN ADEQUATE FOR CONTROLLING HIS PAIN UP TO THIS TIME. HE HAS BEEN NPO SINCE MIDNIGHT, EXCEPT FOR SIPS WITH MEDS, FOR A POSSIBLE ERCP WITH GI LATER TODAY.
--- NOTE | 2018-02-27 14:25 | NUR ---
CONSULTED TO PLACE MIDLINE FOR PT WITH DIFFICULT IV ACCESS. SPOKE WITH PT REGUARDING RISK AND BENEFIT. VOICED UNDERSTANDING AND AGREED. LEFT UPPER ARM ASSESSED. LEFT CEPHALIC VEIN IDENTIFIED. 8CM POWER GLIDE MIDLINE PLACED PER HOSPITAL POLICY. LINE SECURED. GOOD BRISK BLOOD RETURN NOTED AND FLUSHED WITH EASE. LINE RELEASED FOR USE. PRIMARY NURSING AWARE.
--- NOTE | 2018-02-27 19:05 | NUR ---
PATINET RESTING IN BED. VITAL SIGNS STABLE ANDPAITNET IN NOAPPARENT DISTRESS AT THIS TIME. HOURLY ROUNDING COMPLETD FOR PATIENT SAFETY. GASTRIC EMPTYING STUDY TIOMORROW. CADIOLOGY NOTE FOR REASONS TO MAINTAIN EFFIENT AND ASA UNTI AFTER 03-03-18
[2018-02-28] VITALS: BP 118/75
[2018-02-28 04:00] VITALS: BP 105/73
[2018-02-28 05:41] LABS: HEMATOCRIT 25.7 % (42.0-52.0); HEMOGLOBIN 8.9 gm/dL (14.0-18.0); MCH 30.9 pg (26.0-34.0); MCHC 34.4 g/dL (28.0-37.0); MCV 89.7 fL (80.0-100.0); RBC 2.87 mil/uL (4.50-6.00); WBC 5.3 thou/uL (4.0-11.0)
[2018-02-28 06:19] LABS: ALBUMIN 2.4 g/dL (3.4-5.0); CALCIUM 8.2 mg/dL (8.5-10.1); CREATININE 1.1 mg/dL (0.6-1.3); MAGNESIUM 1.3 mg/dL (1.8-2.4); POTASSIUM 3.9 mmol/L (3.5-5.1); TOTAL BILIRUBIN 0.4 mg/dL (<0.1-1.0); TOTAL PROTEIN 5.8 g/dL (6.4-8.2)
--- NOTE | 2018-02-28 08:08 | NUR ---
PT IS ABLE TO COMMUNICATE HIS NEEDS TO STAFF EFFECTIVELY. CURRENT PAIN MEDICATION REGIMEN HAS BEEN ADEQUATE FOR CONTROLLING HIS PAIN UP TO THIS TIME. HE HAS BEEN NPO SINCE MIDNIGHT, EXCEPT FOR SIPS WITH MEDS, FOR A GASTRIC EMPTYING TEST LATER TODAY.
[2018-02-28 08:20] VITALS: BP 119/78
[2018-02-28 11:15] VITALS: BP 123/81
--- NOTE | 2018-02-28 18:48 | NUR ---
Pt c/o nausea throughout day, as well as pain. alternative methods used for pain relief as no pain medication could be given for NM gastric emptying study. Pain medications given when testing complete.
[2018-02-28 19:32] VITALS: BP 116/72
[2018-03-01 00:46] VITALS: BP 111/72
[2018-03-01 05:11] LABS: HEMATOCRIT 26.2 % (42.0-52.0); HEMOGLOBIN 8.8 gm/dL (14.0-18.0); MCHC 33.5 g/dL (28.0-37.0); MCV 89.6 fL (80.0-100.0); RBC 2.92 mil/uL (4.50-6.00); RDW-CV 12.8 % (10.5-14.5); WBC 4.6 thou/uL (4.0-11.0)
[2018-03-01 05:25] LABS: ALBUMIN 2.4 g/dL (3.4-5.0); CALCIUM 8.1 mg/dL (8.5-10.1); CREATININE 1.1 mg/dL (0.6-1.3); MAGNESIUM 1.8 mg/dL (1.8-2.4); POTASSIUM 4.1 mmol/L (3.5-5.1); TOTAL BILIRUBIN 0.6 mg/dL (<0.1-1.0); TOTAL PROTEIN 5.7 g/dL (6.4-8.2)
--- NOTE | 2018-03-01 05:50 | NUR ---
PT IS ABLE TO COMMUNICATE HIS NEEDS TO STAFF EFFECTIVELY. CURRENT PAIN MEDICATION REGIMEN HAS BEEN ADDEQUATE FOR CONTROLLING HIS PAIN UP TO THIS TIME. LIKELY DISCHARGE LATER TODAY WITH GI FOLLOW UP AT A LATER DATE FOR AN ERCP.
[2018-03-01 08:40] VITALS: BP 124/81
[2018-03-01 16:15] VITALS: BP 119/77
--- NOTE | 2018-03-01 16:25 | NUR ---
PATIENT REMAINED ALERT AND ORIENTED X'S 4. VITAL SIGNS AND SPO2 STABLE. IV CLEAN, FLUIDS INFUSING. PAIN WELL CONTROLLED WITH PAIN MEDS. TELE MONITOR DC'D. TOLERATED DIET, NO NAUSEA AND VOMITING. PASSED BM AND VOIDED WITHOUT ISSUE. CARDIAC FOLLOW UP 7 DAYS FROM DC. DC DAY IS DAY 1. COMPLETED HOURLY ROUNDING. CALL LIGHT WITHIN REACH. WILL CONTINUE TO MONITOR.
[2018-03-01 21:10] VITALS: BP 117/78
--- NOTE | 2018-03-02 05:18 | NUR ---
PT TRANSFERED TO ROOM 309 FROM 219, REPORT RECIEVED FROM EDISON ESCOTO. PT SLEPT ON AND OFF THIS SHIFT. ASSESSMENT DOCUMENTED. MEDS GIVEN PER E-MAR. IV PATENT. PAIN MEDS GIVEN PER E-MAR WITH RELIEF. WILL CONTINUE WITH PLAN OF CARE.
[2018-03-02 08:00] VITALS: BP 128/81
[2018-03-02 10:49] VITALS: BP 128/81
[2018-03-02 10:56] VITALS: BP 128/81
[2018-03-02] MEDS ORDERED: NORCO 5-325 TA1 EACH PO (10:57)
[2018-03-02] MEDS ORDERED: REGLAN 10 MG TA10 MG PO (10:58)
--- NOTE | 2018-03-02 11:01 | NUR ---
SW spoke with pt and pt about RW already delivered to pt room through [employer]. Pt/pt wondering about coverage for electric lift for scooter into their van; SW explained that SW was not certain insurance would cover all of an electric lift if any, but provided information for [employer] on pt dc instructions so that they will follow with DME company and their PCP for possibility of electric lift for their van. Pt did not have any HH needs or any other dc needs at this time.
[2018-03-02 11:03] VITALS: BP 128/81
[2018-03-02 11:52] VITALS: BP 128/81
--- NOTE | 2018-03-02 11:52 | NUR ---
PATIENT IS ALERT AND ORIENTED TODAY VERY PLEASANT. VITAL SIGNS STABLE ON ROOM AIR. COMPLAINED OF SOME PAIN TODAY THAT IS CONTROLLED WITH ORAL PAIN MEDICATIONS. PATIENT IS BEING DISCARGED TODAY TO HOME. DISCHARGE INSTRUCTIONS AND PRESCRIPTIONS GIVEN. QUESTIONS ANSWERED FOR PATIENT AND . LEFT VIA WHEEL CHAIR WITH VOLUNTEER TO HOME WITH .
--- NOTE | 2018-03-05 09:08 | CON ---
[address] [address] CONSULTATION Name: RONNY YEAGER Room: [address] IN M.R.#: [id number] Admission: 02/22/18 Attend Phys: Josselin Villagomez MD Discharge: 03/02/18 Date of : 51 Report #: [id number] THIS REPORT FOR: //name// CC: Xu Storey MD [facility] Josselin Villagomez INDICATION: Near syncope. HISTORY OF PRESENT ILLNESS: The patient is a 62-year-old gentleman who is well known to us. He has an ischemic cardiomyopathy. In 02/2017, he presented with an occluded LAD for which he had a drug-eluting stent placed. After that, he had third-degree AV block and ultimately, a dual chamber pacemaker placed. The patient's left ventricle continued to be dysfunctional. He therefore underwent ultimate upgrade to ICD for primary prevention. The patient had recatheterization in 03/2017, which showed no restenosis; however, he had a long stenosis in the right coronary artery for which he had stenting. The patient was readmitted in 05/2017 and had a new drug-eluting stent placed in the LAD. The patient was readmitted subsequent to that and had an additional stent placed to the right coronary artery. The patient's ejection fraction is in the neighborhood of 25%-35%. He presented to the hospital after multiple falls and syncope and near syncope at home. Prior to admission, he has been having nausea, vomiting and diarrhea. He is not having chest pain. He thought perhaps he may have had some discharges from his defibrillator. Interrogation of his defibrillator shows normal function and no evidence of discharges or significant dysrhythmias. The patient appears relatively stable from a cardiac standpoint at this time. He has had some rehydration and is tolerating food at this time. PAST MEDICAL HISTORY: 1. Coronary artery disease. 2. Ischemic cardiomyopathy. 3. Status post ICD placement for primary prevention. 4. COPD. 5. Hypertension. 6. Chronic systolic heart failure. 7. Grade 3 renal insufficiency. 8. Prediabetes. FAMILY HISTORY: Noncontributory. SOCIAL HISTORY: The patient is a nonsmoker. He smoked cigars previously. [place] [address] CONSULTATION Name: RONNY YEAGER Room: [address]#: [id number] Admission: 02/22/18 Attend Phys: Josselin Villagomez MD Discharge: 03/02/18 Date of : 51 Report #: [id number] PHYSICAL EXAMINATION: VITAL SIGNS: Blood pressure 99/59, pulse 84 and regular. GENERAL: This is a pleasant gentleman who appears to be in no distress. Mood and affect appropriate. HEENT: Extraocular muscles intact. Mucous membranes are moist. NECK: Shows no jugular venous distention. There are no carotid bruits. CHEST: Reveals diminished breath sounds in the bases. I do not appreciate wheezes or rales. CARDIOVASCULAR: Reveals a regular rhythm with normal S1 and S2. I do not appreciate gallop or murmur. ABDOMEN: Reveals normal bowel sounds. The abdomen is soft and nontender. EXTREMITIES: Shows no edema. Peripheral pulses are 2+ and easily palpable. SKIN: Warm and dry. ICD was interrogated and shows normal function. There were no discharges from defibrillator. There were no underlying dysrhythmias. Labs are reviewed. Sodium 133, potassium 4.0, chloride 98, bicarbonate 26, BUN 23, creatinine 1.4, serum glucose 92. LFTs within normal limits. Troponin less than 0.06. NT-proBNP 1347. White blood cell count 6.3, hemoglobin 10.0, platelet count 322,000. V/Q scan, low probability. Chest x-ray: No acute cardiopulmonary abnormality noted. IMPRESSION AND RECOMMENDATIONS: 1. Coronary artery disease, presently stable. He is not having angina. 2. Ischemic cardiomyopathy. Continue current heart failure medications. He does not have acute exacerbation of his chronic systolic heart failure. 3. Hyperlipidemia. Continue current statin agent. 4. Hypertension. Blood pressure low normal presently due to heart failure regimen. I would not make adjustments at this time. 5. Orthostasis due to episodes of nausea, vomiting and diarrhea while taking diuretics. I would rehydrate gently. 6. Status post ICD placement. The patient has had no discharges from defibrillator, defibrillator functioning normally. The patient is stable from a cardiac standpoint. We will follow as needed. <ELECTRONICALLY SIGNED> By: Ja Booth MD, FACC 03/05/18 0908 1443 39Micambar Booth MD, FACC /nt
--- NOTE | 2018-03-06 14:00 | CON ---
[address] [address] CONSULTATION Name: RONNY YEAGER Room: [address] IN M.R.#: [id number] Admission: 02/22/18 Attend Phys: Josselin Villagomez MD Discharge: 03/02/18 Date of : 51 Report #: [id number] THIS REPORT FOR: //name// CC: Xu Villagomez DATE OF SERVICE: 02/28/2018 REQUESTING PHYSICIAN: Dr. Villagomez. REASON FOR CONSULTATION: Anemia. HISTORY OF PRESENT ILLNESS: The patient is a pleasant 62-year-old man, with multiple medical problems including coronary artery disease, CHF, defibrillator placement, cardiomyopathy, COPD, who was admitted to the hospital with intractable nausea, vomiting and abdominal pain. He had EGD, colonoscopy done by Dr. Su. ERCP is planned. He had mild anemia on admission. Throughout hospital course, he developed chronically worsening marked normocytic anemia. Hematology consult is requested. His renal disease is bad. He says he feels "lousy. He does not have complaints of hematochezia or melena, but has complaints of decreased appetite and nausea. He has complaints of night sweats. He does not have complaints of fevers or weight loss. Denies arthralgia. PAST MEDICAL HISTORY: Significant for above mentioned chronic problems. SOCIAL HISTORY: , does not drink alcohol excessively. REVIEW OF SYSTEMS: See above. PHYSICAL EXAMINATION: GENERAL: Reveals chronically ill-appearing man, not in acute distress. VITAL SIGNS: Blood pressure 123/81, heart rate is 72, temperature 98.0, respirations 16. HEENT: Does not reveal thrush. LUNGS: Clear. ABDOMEN: Soft. EXTREMITIES: No edema. MENTAL STATUS: Alert and oriented x 3. LYMPHATIC: There is no cervical lymphadenopathy. LABORATORY DATA: White count 5.3, hemoglobin 8.9, platelets 315, MCV 89.7. Sed rate 62. Sodium 137, potassium 3.9, BUN 5 and creatinine 1.1. CRP 32. CT of abdomen and pelvis done today shows mild plaque in the proximal SMA. There is moderate narrowing of the proximal SMA. Spleen normal size, liver normal. B12 of 644, folate 13.0, soluble transferrin receptor 10.4. TSH 0.42, ferritin 360. [place] [address] CONSULTATION Name: RONNY YEAGER Room: [address]#: [id number] Admission: 02/22/18 Attend Phys: Josselin Villagomez MD Discharge: 03/02/18 Date of : 51 Report #: [id number] ASSESSMENT AND PLAN: Normocytic anemia, most likely anemia of chronic disease, B12, folate, ferritin test done, not suggestive of B12 deficiency or iron deficiency. The patient has multiple chronic problems. He has signs of chronic inflammation with high ESR and CRP. I believe her anemia is related to chronic/acute problems. Continue workup and management as previously. Anemia should resolve after resolution of current medical problems. Thank you very much for allowing me to participate in the care of this patient. <ELECTRONICALLY SIGNED> By: Shante De Los Santos MD 03/06/18 1400 1417 [id number] Gustafson MD /nt
--- NOTE | 2018-03-12 12:22 | CON ---
[address] [address] CONSULTATION Name: RONNY YEAGER Room: [address] IN M.R.#: [id number] Admission: 02/22/18 Attend Phys: Josselin Villagomez MD Discharge: 03/02/18 Date of : 51 Report #: [id number] THIS REPORT FOR: //name// CC: Xu Storey MD [facility] Josselin Villagomez MD DATE OF SERVICE: 02/25/2018 REFERRING PHYSICIAN: Josselin Villagomez MD REASON FOR CONSULTATION: Severe abdominal pain associated with nausea and vomiting. IMPRESSION: 1. Recurrent nausea, vomiting and abdominal pain of uncertain etiology. 2. History of severe ischemic colitis involving the cecum, ascending colon and proximal transverse colon in 08/2017 with the patient needing evaluation of the same. 3. Ischemic cardiomyopathy with ejection fraction of only 30%. RECOMMENDATIONS: First and foremost, I think the first test of choice would be to do a CT scan of the abdomen and pelvis with oral and IV contrast and if the results are same, he may need to have an upper endoscopy and possibly colonoscopy the following day. We will make further recommendations during the hospital course. I discussed plans with the patient as well as and they are agreeable to the same. HISTORY OF PRESENT ILLNESS: The patient is a pleasant 62-year-old white male with history of ischemic cardiomyopathy, ejection fraction about 30%, COPD and chronic ____ bloody stools admitted in the hospital with severe complaints of upper abdominal pain associated with nausea and vomiting. Denies associated weight loss. He states this pain is aggravated by eating and he is not able to keep much of anything down. He has had problem with ____ dizzy spell and also some loose stools. He was hospitalized earlier about 6 months ago for severe lower abdominal pain and subsequent bloody diarrhea and was found to have severe ischemic colitis involving the cecum, ascending colon and transverse colon and was recommended he have repeat colonoscopy to evaluate for healing and ____ this never happened. He denies taking any nonsteroidals, but has a history of remote peptic ulcer disease in the past. While in the hospital early this year, he underwent CT angiogram of his mesenteric vessels and this was unremarkable for ischemia. He is admitted to the hospital now [place] [address] CONSULTATION Name: RONNY YEAGER QUYNH Room: [address]#: [id number] Admission: 02/22/18 Attend Phys: Josselin Villagomez MD Discharge: 03/02/18 Date of : 51 Report #: [id number] CURRENT MEDICATIONS: At home include nitroglycerin, omeprazole, aspirin, oxycodone, Ranexa, spironolactone, Effient, Lipitor, and Coreg. PAST MEDICAL HISTORY: Significant for heart disease as mentioned above, hypertension, chronic lung disease with COPD, chronic kidney disease, diabetes, history of remote peptic ulcer disease, he has had previous cholecystectomy, he has had ischemic colitis, he has had hernia repair, back surgery. He has had stents placed in the past. SOCIAL HISTORY: Quit smoking over a year ago, does not drink alcohol. FAMILY HISTORY: Negative. PHYSICAL EXAMINATION: GENERAL: Pleasant 62-year-old gentleman, who appears older than stated age. CARDIOPULMONARY EXAMINATION: Revealed a regular rhythm. LUNGS: Clear. ABDOMEN: Soft. He was tender in the upper abdomen. No rebound or guarding. LABORATORY DATA: Revealed a white count of 6.3, hemoglobin 10.0, platelet count of 322,000, MCV is 87.9, RDW is 12.9. His sodium is 133, potassium 4.0, chloride 98, bicarbonate is 26, BUN 23, creatinine 1.4, GFR of 51. Total bilirubin 0.6, alkaline phosphatase is 93, AST 16, ALT 13. His albumin is 2.7. B12 level is 644, folate 13 and TSH 0.42. DISCUSSION: At present time, the patient has had problems with recurrent abdominal pain, nausea and vomiting. We will proceed with CT scan of the abdomen and pelvis, upper endoscopy, colonoscopy, probably gastric emptying scan ____ to have endoscopic ultrasound or any other things. I have discussed the plans with the patient as well and he is agreeable to the same. <ELECTRONICALLY SIGNED> By: Gurwinder Su DO 03/12/18 1222 1744 [id number] Su DO /nt
== END 2018-03-02 11:58 | disposition home or self-care (01) | DRG 391 ==
LOC: M.ERS 14:28 → M.TBA-ER 17:03 → M.2W 17:03 → M.3W 03-01 21:19
PROVIDERS: Internal Medicine Gastroenterology; Personal Emergency Response Attendant; ADMIT Internal Medicine
PROC: 0DJ08ZZ Inspection of Upper Intestinal Tract, Via Natural or Artificial Opening Endoscopic (ICD-10-PCS; principal; 2018-02-25)
PROC: 0DJD8ZZ Inspection of Lower Intestinal Tract, Via Natural or Artificial Opening Endoscopic (ICD-10-PCS; 2018-02-26)
PROC: 05HD33Z Insertion of Infusion Device into Right Cephalic Vein, Percutaneous Approach (ICD-10-PCS; 2018-02-27)
DX: K31.84 Gastroparesis (principal); N17.0 Acute kidney failure with tubular necrosis; I13.0 Hypertensive heart and chronic kidney disease with heart failure and stage 1 through stage 4 chronic kidney disease, or unspecified chronic kidney disease; I50.22 Chronic systolic (congestive) heart failure; E44.1 Mild protein-calorie malnutrition; E87.1 Hypo-osmolality and hyponatremia; K57.30 Diverticulosis of large intestine without perforation or abscess without bleeding; I25.10 Atherosclerotic heart disease of native coronary artery without angina pectoris; J44.9 Chronic obstructive pulmonary disease, unspecified; Z77.22 Contact with and (suspected) exposure to environmental tobacco smoke (acute) (chronic); I25.5 Ischemic cardiomyopathy; E78.5 Hyperlipidemia, unspecified; D64.9 Anemia, unspecified; M54.12 Radiculopathy, cervical region; R73.03 Prediabetes; E86.0 Dehydration; N18.3 Chronic kidney disease, stage 3 (moderate); K59.09 Other constipation; K21.9 Gastro-esophageal reflux disease without esophagitis; K44.9 Diaphragmatic hernia without obstruction or gangrene; K64.9 Unspecified hemorrhoids; Z95.5 Presence of coronary angioplasty implant and graft; I25.2 Old myocardial infarction; Z95.828 Presence of other vascular implants and grafts; Z82.49 Family history of ischemic heart disease and other diseases of the circulatory system; Z87.891 Personal history of nicotine dependence; Z79.82 Long term (current) use of aspirin; Z79.899 Other long term (current) drug therapy; Z87.11 Personal history of peptic ulcer disease; Z90.49 Acquired absence of other specified parts of digestive tract; Z23 Encounter for immunization; Z68.27 Body mass index [BMI] 27.0-27.9, adult

== ENCOUNTER 2018-03-14 18:57 | Inpatient (IN) | payer OTHER ==
[~2018-03-14] VITALS: Ht 170.2 cm; Wt 74.4 kg
--- NOTE | ~2018-03-14 | PROC ---
[address] [address] PROCEDURE REPORT Name: RONNY YEAGER Room: [address] ADM IN M.R.#: [id number] Admission: 03/14/18 Attend Phys: Racquel Cisse Discharge: Date of : 51 Report #: [id number] THIS REPORT FOR: //name// For GI report, please see the Provation report in Perceptive 7 content. By: 1615Medical Records Staff YONI /YONNY
[~2018-03-14 18:57] MED LIST changes: +NORCO 5-325 TA1 EACH PO; +REGLAN 10 MG TA10 MG PO
[2018-03-14 19:01] VITALS: BP 133/78
--- NOTE | 2018-03-14 20:05 | NUR ---
ASSUMED PT CARE
[2018-03-14 20:06] LABS: ABSOLUTE BASOPHILS 0.1 thou/uL (0.0-0.2); ABSOLUTE EOSINOPHILS 0.4 thou/uL (0.0-0.7); ABSOLUTE LYMPHOCYTES 0.7 thou/uL (0.8-5.3); ABSOLUTE MONOCYTES 0.5 thou/uL (0.0-1.2); ABSOLUTE NEUTROPHILS 3.7 thou/uL (1.6-8.1); BASOPHILS 1.4 %; EOSINOPHILS 7.8 %; HEMATOCRIT 37.5 % (42.0-52.0); HEMOGLOBIN 12.6 gm/dL (14.0-18.0); LYMPHOCYTES 12.2 %; MCHC 33.5 g/dL (28.0-37.0); MCV 89.4 fL (80.0-100.0); MONOCYTES 10.2 %; MPV 7.3 fl. (7.2-11.1); NUCLEATED RBCS 0 /100WBC; PLATELET COUNT* 448 thou/uL (150-400); POLYS 68.4 %; RBC 4.19 mil/uL (4.50-6.00); RDW-CV 13.8 % (10.5-14.5); WBC 5.4 thou/uL (4.0-11.0)
[2018-03-14 20:16] LABS: APTT 27.4 Seconds (25.0-31.3); INR 1.1; PROTIME 10.9 Seconds (9.20-11.50)
[2018-03-14 20:31] LABS: ANION GAP 11 mmol/L (7-16); BUN 22 mg/dL (7-18); CALCIUM 9.2 mg/dL (8.5-10.1); CHLORIDE 93 mmol/L (98-107); CO2 28 mmol/L (21-32); CREATININE 1.6 mg/dL (0.6-1.3); GLUCOSE 127 mg/dL (70-99); SODIUM 132 mmol/L (136-145)
[2018-03-14 20:35] LABS: ALBUMIN 3.7 g/dL (3.4-5.0); ALKALINE PHOSPHATASE 129 U/L (46-116); LIPASE 80 U/L (73-393); MAGNESIUM 1.7 mg/dL (1.8-2.4); NT-PRO BRAIN NAT PEPTIDE 1727 pg/mL (<300); SGOT 22 U/L (15-37); SGPT 17 U/L (30-65); TOTAL BILIRUBIN 0.9 mg/dL (<0.1-1.0); TOTAL PROTEIN 8.2 g/dL (6.4-8.2); TROPONIN-I LEVEL <0.06 ng/mL (<0.06)
--- NOTE | 2018-03-14 21:00 | NUR ---
PT REPORTS CP. PROVIDER NOTIFIED.
[2018-03-15] VITALS (7 sets, daily range): BP systolic 96–127; BP diastolic 64–86
--- NOTE | 2018-03-15 05:22 | NUR ---
PT ARRIVED ON UNIT FROM ER AT 0005 ASSITED TO ROOM ORIENTED TO SURROUNDINGS VS AND ASSESSMENT STABLE ON 2L NC. PT RUNNING VPACED ON THE MONITOR. PT HAD PAIN MEDS ONCE THEN SLEPT TIL THE MORNING AND C/O PAIN AND HAD NO FURTHER ORDERS, PAGED DOCTOR FOR FURTHER ORDERS. WILL CONTINUE PLAN OF CARE.
[2018-03-15 12:42] LABS: URINE BILIRUBIN NEGATIVE (Negative); URINE BLOOD NEGATIVE (Negative); URINE CLARITY CLEAR; URINE COLOR YELLOW; URINE GLUCOSE-RANDOM NEGATIVE (Negative); URINE KETONES NEGATIVE (Negative); URINE LEUKOCYTES-REFLEX NEGATIVE (Negative); URINE NITRITE-REFLEX NEGATIVE (Negative); URINE PROTEIN NEGATIVE (Negative); URINE SPECIFIC GRAVITY 1.025 (1.005-1.030); URINE UROBILINOGEN 0.2 E.U./dl (0.2-1.0)
--- NOTE | 2018-03-15 13:48 | EKG ---
[place] [address] ELECTROCARDIOGRAM REPORT Name: RONNY YEAGER Room: [place] [address] ADM IN .R.#: [id number] Admission: 03/14/18 Attend Phys: Racquel Cisse Discharge: Date of : 51 Report #: [id number] THIS REPORT FOR: //name// [facility] ED Test Date: 2018-03-14 Test Time: 19:01:45 Pat Name: RONNY YEAGER Department: Room: [facility] Gender: M Household Manager: Lynn : 1955 Requested By: Ariana Arce Order Number: [id number] MD: Armin Barrios Measurements Intervals [place] Rate: 89 P: 78 GA: 187 QRS: 266 QRSD: 185 T: 88 QT: 456 QTc: 555 Interpretive Statements Atrial-sensed ventricular-paced rhythm No further analysis attempted due to paced rhythm Compared to ECG 02/22/2018 14:34:14 ventricular paced beats now noted Electronically Signed On 03-15-2018 13:48:10 REMEDY DEVELOPER by Armin Barrios [email or web address] <ELECTRONICALLY SIGNED> By: Armin Barrios MD, FACC 03/15/18 1348 1901 1901 Armin Barrios MD, [facility] /EPI
--- NOTE | 2018-03-15 13:50 | EKG ---
[place] [address] ELECTROCARDIOGRAM REPORT Name: MIRELLA YEAGERY QUYNH Room: [place] [address] ADM IN .R.#: [id number] Admission: 03/14/18 Attend Phys: Racquel Cisse Discharge: Date of : 51 Report #: [id number] THIS REPORT FOR: //name// [facility] ED Test Date: 2018-03-14 Test Time: 21:02:55 Pat Name: RONNY YEAGER Department: Room: [facility] Gender: M Pharmacy Associate: KELI : 1955 Requested By: Ariana Arce Order Number: [id number] MD: Armin Barrios Measurements Intervals [place] Rate: 93 P: 71 VA: 195 QRS: 264 QRSD: 181 T: 88 QT: 452 QTc: 563 Interpretive Statements Atrial-sensed ventricular-paced rhythm No further analysis attempted due to paced rhythm Electronically Signed On 03-15-2018 13:49:54 MOISTURE TESTER by Armin Barrios [email or web address] <ELECTRONICALLY SIGNED> By: Armin Barrios MD, [facility] 03/15/18 1349 01 01 Armin Barrios MD, [facility] /EPI
--- NOTE | 2018-03-15 16:59 | NUR ---
PT CARE ASSUMED AFTER REPORT. ASSESSMENT COMPLETE. V PACED ON MONITOR. IVF INFUSING PER ORDER. PRN PAIN MEDICATION GIVEN FOR BACK PAIN. NO N/V REPORTED OR OBSERVED. AT BEDSIDE. PROGRESSING TOWARDS GOALS.
[2018-03-16] VITALS (8 sets, daily range): BP systolic 83–123; BP diastolic 49–88
--- NOTE | 2018-03-16 05:32 | NUR ---
ASSUMED CARE OF PT AFTER REPORT AT 1930. PT A&OX4. VSS. PHYSICAL ASSESSMENT COMPLETED AND CHARTED. PT ON RA WITH 96% O2 SAT. PT TRACING SR/1ST DEG/BBB/V PACED ON TELE. PT UP ADLIB TO RESTROOM. PT COMPLAINED OF BACK PAIN WITH PAIN SCALE OF 7/10-PAIN MEDS GIVEN PER MAR WITH PARTIAL RELIEF. CALL LIGHT WITHIN REACH. BED IN LOW POSITION. BED ALARM ON.
--- NOTE | 2018-03-16 05:41 | NUR ---
ASSUMED CARE OF PT AFTER REPORT AT 1930. PT A&OX4. VSS. PHYSICAL ASSESSMENT COMPLETED AND CHARTED. PT ON RA WITH 95% O2 SAT. PT TRACING SR/1ST DEG/AFIB ON TELE. PT UP ADLIB TO BEDSIDE COMMODE. PT COMPLAINED OF NECK, BACK & STOMACHACHE WITH PAIN SCALE OF 7-8-PAIN MEDS GIVEN PER MAR WITH PARTIAL RELIEF. STOPPED CARDIZEM DRIP DUE TO LOW HR & BP. CALL LIGHT WITHIN REACH. BED IN LOW POSITION.
[2018-03-16 05:58] LABS: ABSOLUTE BASOPHILS 0.1 thou/uL (0.0-0.2); ABSOLUTE EOSINOPHILS 0.5 thou/uL (0.0-0.7); ABSOLUTE LYMPHOCYTES 0.8 thou/uL (0.8-5.3); ABSOLUTE MONOCYTES 0.7 thou/uL (0.0-1.2); ABSOLUTE NEUTROPHILS 3.1 thou/uL (1.6-8.1); BASOPHILS 2.2 %; EOSINOPHILS 9.6 %; HEMATOCRIT 32.1 % (42.0-52.0); HEMOGLOBIN 10.9 gm/dL (14.0-18.0); LYMPHOCYTES 15.9 %; MCH 29.9 pg (26.0-34.0); MCHC 33.9 g/dL (28.0-37.0); MCV 88.2 fL (80.0-100.0); MONOCYTES 12.8 %; MPV 7.2 fl. (7.2-11.1); NUCLEATED RBCS 0 /100WBC; POLYS 59.5 %; RBC 3.64 mil/uL (4.50-6.00); RDW-CV 13.3 % (10.5-14.5); WBC 5.3 thou/uL (4.0-11.0)
[2018-03-16 06:10] LABS: PLATELET COUNT* 361 thou/uL (150-400)
[2018-03-16 06:14] LABS: CALCIUM 9.1 mg/dL (8.5-10.1); CREATININE 1.4 mg/dL (0.6-1.3); MAGNESIUM 2.1 mg/dL (1.8-2.4); POTASSIUM 3.6 mmol/L (3.5-5.1)
[2018-03-16 06:23] LABS: % SATURATION 16 % (20-39); IRON 41 ug/dL (50-175)
--- NOTE | 2018-03-16 08:22 | CON ---
[address] [address] CONSULTATION Name: JOSEPHJULIANNERONNY QUYNH Room: [place] [address] ADM IN M.R.#: [id number] Admission: 03/14/18 Attend Phys: Racquel Cisse Discharge: Date of : 51 Report #: [id number] THIS REPORT FOR: //name// CC: Xu Joshi DATE OF SERVICE: 03/15/2018 INDICATION: Shortness of breath. HISTORY OF PRESENT ILLNESS: The patient is a 62-year-old gentleman with history of ischemic cardiomyopathy with EF of 20%. He had an anterior wall myocardial infarction in 02/2017. He is status post pacemaker placement for heart block, which was upgraded to a dual chamber ICD for primary prevention. The patient has had nausea and vomiting for the past week. He had increasing shortness of breath and presented to the hospital for further treatment. He did have some chest pain on admission, his troponin was unremarkable. He denies any discharges from his defibrillator. Chest x-ray shows small pleural effusions, changes of COPD without obvious pulmonary vascular congestion. Initial troponin is unremarkable. EKG shows a paced rhythm. PAST MEDICAL HISTORY: 1. Coronary artery disease with myocardial infarction in the past. 2. Ischemic cardiomyopathy with EF of 20%. 3. Status post dual chamber ICD placement for initially heart block and then primary prevention. 4. COPD. 5. Hypertension. 6. Hyperlipidemia. SOCIAL HISTORY: Noncontributory. The patient is a lifelong nonsmoker. FAMILY HISTORY: Noncontributory. ALLERGIES: None documented. CURRENT MEDICATIONS: Aspirin 81 mg daily, atorvastatin 40 mg daily, carvedilol 3.125 mg b.i.d., Neptune 5/325 q. 4 hours p.r.n., Reglan 10 mg q. 4 hours, Nitrostat 0.4 mg p.r.n., Percocet 10/325 q. 4 hours p.r.n., Effient 10 mg daily, ranolazine 500 mg b.i.d., spironolactone 25 mg daily. REVIEW OF SYSTEMS: A 14-point review of systems is positive for generalized weakness, nausea, vomiting, weight loss, cough, sputum production, palpitations, chest discomfort, orthopnea, paroxysmal nocturnal dyspnea, dyspnea on exertion, vomiting times a week, peptic ulcer disease, depression and anxiety. Otherwise, [place] [address] CONSULTATION Name: RONNY YEAGER Room: [address] IN [facility]#: [id number] Admission: 03/14/18 Attend Phys: Racquel Cisse Discharge: Date of : 51 Report #: [id number] 14-point review of systems unremarkable. PHYSICAL EXAMINATION: VITAL SIGNS: Blood pressure 101/66, pulse 85 and regular. GENERAL: This is a pleasant gentleman who does not appear to be in distress. HEENT: Extraocular muscles intact. Mucous membranes moist. NECK: Shows mild jugular venous distention. I do not appreciate bruit. CHEST: Reveals diffuse crackles throughout. CARDIOVASCULAR: Reveals regular rhythm without gallop or murmur. ABDOMEN: Reveals positive bowel sounds. The abdomen is soft, nontender. EXTREMITIES: Shows no edema. LABORATORY DATA: Reviewed. NT-proBNP is mildly elevated. Troponin is less than 0.06. EKG shows a paced rhythm. IMPRESSION AND RECOMMENDATIONS: 1. Acute on chronic systolic heart failure with mild exacerbation. Would recommend bolus IV Lasix at this time and follow labs in a.m. 2. Ischemic cardiomyopathy, presently on fairly decent medical regimen. He does not appear to be on an JOSE inhibitor or ARB. We will consider that addition when the patient is somewhat more stable. 3. Coronary artery disease, presently troponin is unremarkable. I do not believe this represents acute coronary syndrome. 4. Hypertension. Blood pressure now low with his history of ischemic cardiomyopathy. 5. Hyperlipidemia. Continue atorvastatin at current dose. <ELECTRONICALLY SIGNED> By: Ja Booth MD, FACC 03/16/18 0822 [id number] [id number] Booth MD, FACC /nt
--- NOTE | 2018-03-16 13:04 | NUR ---
ASSESSMENT COMPLETED REFER TO COMPUTER CHARTING. CORRECTIONAL OFFICER CAPTAIN TRACKING SR. PATIENT RESTING IN BED AND UP TO THE BATHROOM BY HIM SELF. IV FLUIDS INFUSING. ON ROOM AIR. PATIENT REPORTING NO SHORTNESS OF AIR OR NAUSEA. PATIENT REPORTING BACK PAIN AND GIVEN ORAL PAIN MEDS PER EMAR. FAMILY AT BEDSIDE. WILL CONTINUE TO MONITOR THIS SHIFT.
--- NOTE | 2018-03-16 16:00 | NUR ---
PT.KNOWN FROM PREVIOUS ADMISSIONS. HE LIVES WITH HIS IN A HOUSE. HAS A CANE,WALKER AND SCOOTER FOR LONGER DISTANCES. IS BASICALLY INDEPENDENT AT HOME. HE HAS NOT HAD HOME HEALTH RECENTLY. PLAN IS TO RETURN WITH AT DISCHARGE.
--- NOTE | 2018-03-16 23:15 | NUR ---
INITIAL ASSESSMENT COMPLETED AT START OF SHIFT. NEW IV STARTED IN RIGHT HAND. IVF INFUSING ORDERED. PT TRACING SR WITH 1ST DEGREE BLOCK. PT C/O BURNING IN STOMACH. PRN HYDROCODONE REQUESTED AND GIVEN WITH GOOD RESULTS. VSS. PT IS UP INDEPENDENTLY WITH STEADY GAIT. NO NEW CONCERNS. CLWR. AT BEDSIDE.
[2018-03-17] VITALS: BP 90/60
[2018-03-17 04:00] VITALS: BP 103/75
[2018-03-17 05:03] LABS: CALCIUM 8.4 mg/dL (8.5-10.1); CREATININE 1.1 mg/dL (0.6-1.3)
[2018-03-17 12:00] VITALS: BP 104/63
--- NOTE | 2018-03-17 17:30 | NUR ---
RECEIVED REPORT FROM PADMINI AND ASSUMED CARE OF PATIENT AT 0730. PT IS ALERT AND ORIENTED X 4. VSS, BLOOD PRESSURE RUNNING LOW 100'S/60'S. TRACING SINUS RHTHYM FIRST DEGREE BUNDLE BRANCH WITH PAC'S. ASSESSMENT CHARTED. IV PATENT AND SALINE LOCKED. PT IS CALM AND COOPERATIVE WITH COMPLAINTS OF GENERALIZED PAIN. PAIN MANAGED WELL WITH PO MEDICATIONS. PT IS UP AD PEDRO LUIS IN ROOM WITH AT BEDSIDE. PT WORKED WITH PHYSICAL THERAPY AND AMBULATED IN HALLWAY. PT PROGESSING TOWARD GOALS. PT INFORMED OF PLAN OF CARE AND COMMUNICATES UNDERSTANDING. HOURLY ROUNDED ON PT FOR PT SAFETY. CALL LIGHT WITHIN REACH. WILL CONTINUE TO MONITOR FOR DURATION OF SHIFT.
[2018-03-17 19:00] VITALS: BP 97/58
--- NOTE | 2018-03-17 22:20 | NUR ---
INITIAL ASSESSMENT COMPLETE AT START OF AHIFT. PT TRACING SR WITH 1ST DEGREE BLOCK AND PAC'S. PT C/O 10/15 ABDOMINAL PAIN. PRN HYDROCODONE GIVEN. PT DENIES NAUSEA, ALTHOUGH REPORTS THAT HE FELT NAUSEOUS AFTER EATING EARLIER TODAY. PT ALSO REPORTS THAT HE HAS HAD 2 LOOSE STOOLS TODAY, SENNA HELD. PT IS UP AD PEDRO LUIS WITH STEADY GAIT, ALERT & ORIENTED X 4. AT BEDSIDE. CLWR.
[2018-03-18] VITALS: BP 107/69
[2018-03-18 04:30] VITALS: BP 95/57
[2018-03-18 04:54] LABS: ABSOLUTE BASOPHILS 0.1 thou/uL (0.0-0.2); ABSOLUTE EOSINOPHILS 0.4 thou/uL (0.0-0.7); ABSOLUTE LYMPHOCYTES 0.8 thou/uL (0.8-5.3); ABSOLUTE MONOCYTES 0.7 thou/uL (0.0-1.2); ABSOLUTE NEUTROPHILS 2.6 thou/uL (1.6-8.1); BASOPHILS 1.9 %; HEMATOCRIT 30.6 % (42.0-52.0); HEMOGLOBIN 10.3 gm/dL (14.0-18.0); LYMPHOCYTES 17.9 %; MCH 30.4 pg (26.0-34.0); MCHC 33.5 g/dL (28.0-37.0); MCV 90.7 fL (80.0-100.0); MONOCYTES 14.4 %; MPV 7.4 fl. (7.2-11.1); NUCLEATED RBCS 0 /100WBC; PLATELET COUNT* 314 thou/uL (150-400); POLYS 56.8 %; RBC 3.38 mil/uL (4.50-6.00); RDW-CV 13.3 % (10.5-14.5); WBC 4.6 thou/uL (4.0-11.0)
[2018-03-18 05:20] LABS: ALBUMIN 2.9 g/dL (3.4-5.0); CALCIUM 8.7 mg/dL (8.5-10.1); CREATININE 1.1 mg/dL (0.6-1.3); POTASSIUM 4.2 mmol/L (3.5-5.1); TOTAL BILIRUBIN 0.4 mg/dL (<0.1-1.0)
--- NOTE | 2018-03-18 05:23 | NUR ---
PT CONTINUES TO C/O PAIN IN ABDOMEN. PRN HYDROCODONE GIVEN X 2 THIS SHIFT. TRACING SR WITH 1ST DEGREE BLOCK WITH PAC'S. PT HAS NO C/O N/V. CLWR
[2018-03-18 09:05] VITALS: BP 114/72
[2018-03-18 12:00] VITALS: BP 117/74
--- NOTE | 2018-03-18 18:25 | NUR ---
RECEIVED REPORT PADMINI FROM AND ASSUMED CARE OF PT AT 0730. PT IS ALERT AND ORIENTED X 4. PT IS CALM AND COOPERATIVE WITH COMPLAINTS OF GENERALIZED PAIN. PAIN WELL MANAGED WITH PRN PAIN MEDICATIONS . VSS TRACING SINUS RHYTHM FIRST DEGREE BUNDLE BRANCH BLOCK WITH PAC'S. ASSESSMENT CHARTED. IV PATENT AND SALINE LOCKED. PT IS UP AB PEDRO LUIS IN ROOM. AT BEDSIDE. EMILNA HELD THIS SHIFT. PT INFORMED OF PLAN OF CARE AND COMMUNICATES UNDERSTANDING. HOURLY ROUNDING COMPLETED FOR PT SAFETY. CALL LIGHT WITHIN REACH. WILL CONTINUE TO MONITOR FOR DURATION OF SHIFT.
[2018-03-18 19:15] VITALS: BP 108/73
--- NOTE | 2018-03-18 22:30 | NUR ---
INITIAL ASSESSMENT COMPLETE AT START OF SHIFT. PT INITIALLY TOLD THIS NURSE THAT HE HAD NOT HAD ANY BM TODAY ( PER DAY NURSE ALSO), PT THEN STATED THAT HE HAD 2 LOOSE STOLLS TODAY, SENNA HELD AGAIN. BS POSITIVE X 4 QUADS. TRACING SR WITH 1ST DEGREE BLOCK AND PAC'S. PT REPORTS LITTLE RELEIF FROM IV MORPHINE. PRN PO PAIN PILL REQUESTED. PT IS SL. PT UP AD PEDRO LUIS WITH STEADY GAIT. PT DENIES NAUSEA AT THIS TIME. PT DENIES ANY FIRTHER NEEDS. CLWR.
[2018-03-19] VITALS (8 sets, daily range): BP systolic 87–131; BP diastolic 58–95
--- NOTE | 2018-03-19 05:46 | NUR ---
PT HAS SLEPT T/O THIS SHIFT. PT B/P HAS BEEN LOW IN THE 80'S/60'S. PT IS ASYMPTOMATIC. NO C/O N/V/D THIS SHIFT. NO NEW CONCERNS. CLWR.
--- NOTE | 2018-03-19 14:16 | NUR ---
PT. ARRIVED FROM PER W/C TO ROOM 108 ORIENTED TO ROOM AND CALL LIGHT SYSTEM. STAYING WITH PT. REQUESTED A COT AND LINEN. HX OF CAD HAS ICD L CHEST ADMITTED WITH NAUSEA NO EMESIS ABDOMINAL PAIN ON SOLID FOODS HAD A FORMED BM ON TODAY. ON SCHEDULED REGLAN AND ZOFRAN. RATES ABDOMINAL PAIN AN 8 ALSO CHRONIC BACK PAIN MENTIONED. UP AD PEDRO LUIS.SKIN INTACT SOME HEALED ABRASIONS 2 SCABS ON LOWER EXTREMETIES.
--- NOTE | 2018-03-19 17:44 | NUR ---
PT. STATES SLIGHT RELIEF OF ABDOMINAL PAIN AFTER PRN PAIN MED GIVEN. WORKING WITH PHYSICAL THERAPY AFTER ARRIVAL ON [facility].
[2018-03-20 04:00] VITALS: BP 95/58
--- NOTE | 2018-03-20 06:46 | NUR ---
PATIENT HAS SLEPT WELL THROUGHOUT THE NIGHT. PAIN WELL CONTROLLED. MEDICATIONS GIVEN AND CHARTED. VSS ON RA. ASSESSMENT CHARTED. NO C/O NAUSEA. IV IN RIGHT HAND-SL. PATIENT UP AD-PEDRO LUIS AND STEADY. AT BEDSIDE. PATIENT INSTRUCTED TO USE CALL LIGHT WHEN NEEDING ASSISTANCE. HOURLY ROUNDS MADE. WILL CONTINUE WITH PLAN OF CARE AND NURSING TO MONITOR.
[2018-03-20 08:28] VITALS: BP 99/68
[2018-03-20] MEDS ORDERED: NORCO 5-325 TA1 EACH PO (10:04)
[2018-03-20] MEDS ORDERED: ZOFRAN ODT4 MG SUBLING (10:04)
[2018-03-20] MEDS ORDERED: SCOPOLAMINE1 EACH TRANSDERM (10:04)
[2018-03-20] MEDS ORDERED: AMITRIPTYLINE H25 M2 PO (10:04)
[2018-03-20] MEDS ORDERED: PERCOCET 10-321 EACH PO (10:04)
[2018-03-20] MEDS ORDERED: PANTOPRAZOLE SO40 M1 PO (10:04)
--- NOTE | 2018-03-20 11:37 | NUR ---
ASSUMED CARE OF PT THIS AM AROUND 0715- UPON ASSESSMENT PT NOTED TO BE RESTING IN BED, C/O PAIN ABD AND NAUSEA- SCHEDULED ZOFRAN GIVEN THIS AM ALONG WITH PRN HYDROCODONE AT 0825- PT A&O X4- CONTINENT OF BOWEL AND BLADDER- UP AD-PEDRO LUIS IN ROOM, STEADY GAIT NOTED- LCTA, RESP EVEN AND UN-LABORED- VSS, O2 SAT 94% ON RA- ABDOMEN SOFT/ROUND/NON-TENDER, BS X4 QUADS- LAST BM REPORTED 03/19/18- IV NOTED TO RIGHT HAND SL- NAUSE WITH EMESIS REPORTED THIS AM- D/C PENDING IF PT TOLERATING DINNER OKAY AND CARDIOLOGY OKAY THIS SHIFT- AT SIDE AND ACTIVE IN CARES- CALL LIGHT AND PERSONAL BELONGINGS WITH IN REACH- HOURLY ROUNDS IN PLACE R/T SAFETY/NEEDS- ALL NEEDS MET AT THIS TIME-WCTM
[2018-03-20 16:24] VITALS: BP 109/70
--- NOTE | 2018-03-20 17:28 | NUR ---
PT CURRENTLY RESTING IN BED- CONTINUES TO HAVE HARD TIME WITH MEALS, REPORTS CONTINUED NAUSEA WITH ABD PAIN DESPITE GIVEN SCHEDULED REGLAN, ZOFRAN, AND ADMINISTRATION OF SCOP PATCH TO LEFT EAR THIS SHIFT- PRN HYDROCODONE THIS SHIFT REQUESTED- PT REPORTS TO HAVE HAD BM THIS SHIFT- HERE TO ASSESS WITH REGLAN INCREASED TO 15MG, AND AMITRIPTYINE AT HS TO 50 MG- ERCP PLANNED VALENTIN 03/20/18, PT TO BE NPO AT MIDNIGHT- IV REMAINS INTACT TO RIGHT HAND AND SL- CALL LIGHT AND PERSONAL BELONGINGS WITH IN REACH- PT MAKES NEEDS KNOWN- ALL NEEDS MET AT THIS TIME-WCTM
[2018-03-20 20:00] VITALS: BP 118/77
[2018-03-21 00:09] VITALS: BP 99/65
--- NOTE | 2018-03-21 03:48 | NUR ---
ASSESSMENT: PT REMAIN ALERT AND ORIENT TIMES FOUR. UP AD PEDRO LUIS, AT THE BEDSIDE. VSS, AFEBRILE. BP RECHECKED AT PA 99/65 POST 2100 BP MEDS. PRN PAIN MEDICATIONS GIVEN WITH PARTIAL RELIEF OF PAIN. TOLERATING PO INTAKE, NAUSEA STABLE DURING THIS SHIFT, WAS ABLE TO KEEP PILLS DOWN. NPO AT PA FOR ERCP WITH POSSIBLE PLACEMENT OF BILIARY STENT, NO CUTTING INVOLVED R/T PT ON ANTICOAGS UNTIL MAY OR JULY. REFUSED SENNA TONIGHT, HAS SOFT AND REGULAR BM'S. PT HAS AICD SINCE FEBRUARY. SLOW PROGRESS TOWARDS DC GOALS, WILL CONTINUE TO MONITOR.
[2018-03-21 05:02] LABS: ABSOLUTE BASOPHILS 0.1 thou/uL (0.0-0.2); ABSOLUTE EOSINOPHILS 0.5 thou/uL (0.0-0.7); ABSOLUTE LYMPHOCYTES 1.1 thou/uL (0.8-5.3); ABSOLUTE MONOCYTES 0.7 thou/uL (0.0-1.2); ABSOLUTE NEUTROPHILS 3.1 thou/uL (1.6-8.1); BASOPHILS 1.4 %; EOSINOPHILS 9.6 %; HEMOGLOBIN 11.2 gm/dL (14.0-18.0); LYMPHOCYTES 19.2 %; MCH 30.8 pg (26.0-34.0); MCHC 33.9 g/dL (28.0-37.0); MCV 90.6 fL (80.0-100.0); MONOCYTES 13.3 %; MPV 7.2 fl. (7.2-11.1); NUCLEATED RBCS 0 /100WBC; PLATELET COUNT* 321 thou/uL (150-400); POLYS 56.5 %; RBC 3.64 mil/uL (4.50-6.00); RDW-CV 13.3 % (10.5-14.5); WBC 5.6 thou/uL (4.0-11.0)
[2018-03-21 05:12] LABS: ALBUMIN 2.9 g/dL (3.4-5.0); CALCIUM 8.8 mg/dL (8.5-10.1); CREATININE 1.3 mg/dL (0.6-1.3); POTASSIUM 4.4 mmol/L (3.5-5.1); TOTAL BILIRUBIN 0.5 mg/dL (<0.1-1.0); TOTAL PROTEIN 6.1 g/dL (6.4-8.2)
[2018-03-21 08:08] VITALS: BP 94/62
--- NOTE | 2018-03-21 12:47 | NUR ---
Nutrition: Pt assessed for LOS. Has had some N/V. He is NPO currently for ERCP; in procedure now. Spoke with RN. Will wait and see how pt tolerates po once he is clinically able to advance diet. Albumin 2.9. Wt stable, 163#. Will follow up 03/23/18.
[2018-03-21 14:15] VITALS: BP 120/76
--- NOTE | 2018-03-21 15:47 | EKG ---
[place] [address] ELECTROCARDIOGRAM REPORT Name: MIRELLA YEAGERY QUYNH Room: [address] ADM IN M.R.#: [id number] Admission: 03/14/18 Attend Phys: Racquel Cisse Discharge: Date of : 51 Report #: [id number] THIS REPORT FOR: //name// Test Date: 2018-03-21 Test Time: 12:45:47 Pat Name: RONNY YEAGER Department: Room: [facility] Gender: M Mobile Practice Lead: : 1955 Requested By: Brando Ibarra Order Number: [id number] MD: Armin Barrios Measurements Intervals [place] Rate: 85 P: 51 VT: 238 QRS: 99 QRSD: 156 T: -63 QT: 377 QTc: 449 Interpretive Statements Atrial-sensed ventricular-paced complexes sinus rhythm Prolonged VT interval RBBB Compared to ECG 03/14/2018 21:02:55 sinus rhythm noted Electronically Signed On 03-21-2018 15:47:07 MASTIC MAN by Armin Barrios [email or web address] <ELECTRONICALLY SIGNED> By: Armin Barrios MD, FACC 03/21/18 1547 1245 1245 Armin Barrios MD, [facility] /EPI
[2018-03-21 20:00] VITALS: BP 114/71
[2018-03-22] VITALS: BP 113/73
[2018-03-22 04:00] VITALS: BP 131/82
[2018-03-22 04:32] LABS: NUCLEATED RBCS 0 /100WBC; WBC 10.3 thou/uL (4.0-11.0)
[2018-03-22 04:34] LABS: HEMATOCRIT 34.9 % (42.0-52.0); HEMOGLOBIN 11.9 gm/dL (14.0-18.0); MCH 30.2 pg (26.0-34.0); MCV 88.7 fL (80.0-100.0); MPV 7.2 fl. (7.2-11.1); PLATELET COUNT* 348 thou/uL (150-400); RBC 3.93 mil/uL (4.50-6.00); RDW-CV 13.5 % (10.5-14.5)
[2018-03-22 04:57] LABS: ALBUMIN 3.1 g/dL (3.4-5.0); CALCIUM 9.1 mg/dL (8.5-10.1); CREATININE 1.3 mg/dL (0.6-1.3); POTASSIUM 4.7 mmol/L (3.5-5.1); TOTAL BILIRUBIN 0.6 mg/dL (<0.1-1.0); TOTAL PROTEIN 6.5 g/dL (6.4-8.2)
[2018-03-22 05:44] LABS: ABSOLUTE BASOPHILS 0.1 thou/uL (0.0-0.2); ABSOLUTE EOSINOPHILS 0.2 thou/uL (0.0-0.7); ABSOLUTE LYMPHOCYTES 1.2 thou/uL (0.8-5.3); ABSOLUTE MONOCYTES 0.3 thou/uL (0.0-1.2); ABSOLUTE NEUTROPHILS 8.4 thou/uL (1.6-8.1); PLATELET ESTIMATE ADEQUATE
[2018-03-22 05:45] LABS: ANISOCYTOSIS 1+; POIKILOCYTOSIS 1+
--- NOTE | 2018-03-22 06:04 | NUR ---
ASSUMED PT CARE AT 1915 RECEIVED REPORT FROM NURSE. PT IS AOX4 SINUS RYTHM ON MONITOR. ON RA AND SATURATION ABOVE 95%. CAPNO AT BEDISDE AT BEDSIDE. PT ASKED FOR PAIN MED DUE TO SRVRELY DESCRIBED PAIN IN STOMACH, PAIN PILL AND MORPHNE RECEIVED AROUND CLOCK. TEMAZEPAM ALSO GIVEN TO PROMOTE SLEEP. PT UP WITH STAND BY TO RESTROOM. NO BM REPORTED. URINTED NORMAL. WILL CONTINUE TO MONITOR
[2018-03-22 08:00] VITALS: BP 128/76
--- NOTE | 2018-03-22 10:29 | NUR ---
LABORATORY HELPER SPOKE TO THE PATIENT AND SPOUSE TO DISCUSS DISCHARGE PLANNING NEEDS AND HH AT D/C. PATIENT DECLINED HH, AND INFORMS THAT HE DOES NOT BELIEVE THAT HE WILL NEED ANYTHING. CM WILL REMAIN AVAILABLE TO ASSIST AND FOLLOW NEEDED.
[2018-03-22 11:40] VITALS: BP 107/69
[2018-03-22 16:00] VITALS: BP 103/68
--- NOTE | 2018-03-22 16:17 | NUR ---
PT RESTING IN BED THROUGHOUT SHIFT. PT REFUSES TO EAT STATES THAT IT INCREASES HIS PAIN. PT REQUESTS PAIN MEDS OFTEN. ENCOURAGED CLEAR LIQUIDS.PT DENIES NAUSEA. AT BS AND UPDATED ON PLAN OF CARE
--- NOTE | 2018-03-22 17:09 | NUR ---
PT TRANSFERRED TO UNIT AT THIS TIME. PT IS ALERT AND ORIENTED. I AGREE WITH MORNING ASSESSMENT. IV FLUIDS RUNNING. PAIN MEDS GIVEN ORDERED. PT DENIES ANY FURTHER NEEDS AT THIS TIME. WILL CONTINUE TO MONITOR.
--- NOTE | 2018-03-22 18:56 | NUR ---
PT ADMITTED TO UNIT. ALERT AND ORIENTED X4. PT IS ON RA. PT IS GOING TO HAVE AN MRI TOMORROW. PT HAS CONCERNS ABOUT THIS. PT STATES THEY CANNOT HAVE ATIVAN, CAUSES MORE ANXIETY. PT HAS A RT FA IV. BED ALARM ON. PT DENIES ANY FURTHER NEEDS AT THIS TIME. WILL CONTINUE TO MONITOR. PT STATES THEY ARE HAVING WEAKNESS AND WILL NEED A WALKER TO MOVE AORUND. PT IS STEADY BUT SLIGHTLY WEAK IN THE LEGS. SKIN IS DRY AND INTACT.
[2018-03-22 19:45] VITALS: BP 107/75
[2018-03-23] VITALS: BP 96/53
[2018-03-23 04:20] LABS: ABSOLUTE EOSINOPHILS 0.1 thou/uL (0.0-0.7); ABSOLUTE LYMPHOCYTES 0.6 thou/uL (0.8-5.3); ABSOLUTE NEUTROPHILS 8.6 thou/uL (1.6-8.1); BASOPHILS 0.3 %; EOSINOPHILS 0.9 %; HEMATOCRIT 32.4 % (42.0-52.0); HEMOGLOBIN 11.1 gm/dL (14.0-18.0); LYMPHOCYTES 5.4 %; MCH 30.3 pg (26.0-34.0); MCHC 34.2 g/dL (28.0-37.0); MCV 88.5 fL (80.0-100.0); MONOCYTES 9.4 %; MPV 7.3 fl. (7.2-11.1); NUCLEATED RBCS 0 /100WBC; PLATELET COUNT* 294 thou/uL (150-400); RBC 3.66 mil/uL (4.50-6.00); RDW-CV 13.4 % (10.5-14.5); WBC 10.3 thou/uL (4.0-11.0)
[2018-03-23 04:39] LABS: ALBUMIN 2.6 g/dL (3.4-5.0); CALCIUM 8.7 mg/dL (8.5-10.1); CREATININE 1.2 mg/dL (0.6-1.3); POTASSIUM 4.5 mmol/L (3.5-5.1); TOTAL BILIRUBIN 1.4 mg/dL (<0.1-1.0); TOTAL PROTEIN 6.3 g/dL (6.4-8.2)
[2018-03-23 05:46] LABS: ESR (SEDRATE) 90 mm/hr (0-20)
--- NOTE | 2018-03-23 06:31 | NUR ---
PATIENT HAS REMAINED ALERT AND ORIENTED X 4 THROUGHOUT THE SHIFT AND RESTING QUIETLY ON HOURLY ROUNDS. UP INDEPENDENTLY IN THE ROOM. TAKING CLEAR LIQUIDS WITHOUT EMESIS. SCHEDULED ANTI-EMETICS PROVIDED TO GOOD EFFECT. MEDICATED FOR PAIN X 3. PATIENT STATES ADEQUATE CONTROL FOR REST. VITAL SIGNS STABLE. CONTINUE TO MONITOR.
[2018-03-23 08:12] VITALS: BP 112/75
[2018-03-23 15:58] VITALS: BP 116/77
[2018-03-23 18:09] LABS: AMYLASE 2207 U/L (25-115); LIPASE 21921 U/L (73-393)
--- NOTE | 2018-03-23 18:18 | NUR ---
PT REMAINED ALERT AND ORIENTED. PT HAS C/O PAIN AND RECEIVED IV MORHINE AND ORAL HYDROCODONE. PT HAS DENIED ANY OTHER NEEDS AT THIS TIME. BED ALARM ON. HOURLY ROUNDING COMPLETED. WILL CONTINUE TO MONITOR.
--- NOTE | 2018-03-23 18:32 | NUR ---
REVIEWED AND AGREE WITH ALL CHARTING AND ASSESSMENTS COMPLETED BY ANJEL Diez RN.
[2018-03-23 20:45] VITALS: BP 111/75
[2018-03-24 00:27] VITALS: BP 91/57
--- NOTE | 2018-03-24 01:09 | NUR ---
ASSESSMENT ROUNDS AT 2044. NOTING O2 SAT ONLY 90% ON ROOM AIR WITH FINE CRACKLES AND DIMINISHED LUNG SOUNDS. BP 111/75, HR 117 [address] NAYAK WITH NEW ORDERS TO DISCONTINUE IVF'S, OBTAIN CXR, RT FOR INCENTIVE SPIROMETER AND ONE TIME ORDER LASIX. O2 WAS APPLIED AT 2L/MIN WITH IMMEDIATE IMPROVED SATURATION AT 96%. HS MEDS PROVIDED, INCLUDING COREG & AMITRIPTYLINE. URINALS PROVIDED FOR PATIENT; HE HAS NOT BEEN KIND ENOUGH TO USE THEM. NO MEASURABLE OUTPUT AVAILABLE. HAS BEEN UP TO THE BATHROOM SEVERAL TIMES SINCE LASIX. THIS NURSE REQUESTED HE ALLOW THE BED ALARM BE SET FOR SAFETY WHICH HE REFUSED. MIDNIGHT BP LOW AT 91/57 AND HR 111 BPM. HEARD PHONE FALLING TO FLOOR AT 0045. PATEINT HAD BEEN UP TO BR AND WAS GETTING BACK TO BED. VERY SHORT OF BREATH FOR SEVERAL MINUTES AFTER THIS ACTIVITY. O2 RE-APPLIED WITH SAT 95%. AND PATIENT WAS AGAIN RESTING QUIETLY. DID TAKE HS MED AMITRIPTYLINE EARLIER. SEEMED SLEEPY AT THIS TIME. ALSO HAD REQUESTED PAIN MEDICATION BE BROUGHT TO HIM WHEN DUE. DID NOT PROVIDE PAIN MEDS REQUESTED DUE TO SLEEPINESS AND LOW BP. BED ALARM WAS SET AFTER CONVINCING THAT IS WAS IMPORTANT FOR HIS SAFETY. CURRENTLY RESTING QUIETLY IN NO APPARENT DISTRESS.
[2018-03-24 04:26] VITALS: BP 103/64
[2018-03-24 04:58] LABS: CALCIUM 8.5 mg/dL (8.5-10.1); CREATININE 1.5 mg/dL (0.6-1.3); POTASSIUM 3.8 mmol/L (3.5-5.1)
[2018-03-24 08:32] VITALS: BP 95/64
--- NOTE | 2018-03-24 10:20 | NUR ---
DR ANN ON UNIT AND WANTS PT TO BE STARTED ON NS @ 100ML AN HOUR AND STATED NO BOLUS WAS NECESSARY AT THIS TIME. WILL INFORM DR WATSON REGARDING THIS CONVERSATION, NO CHANGE IN ORDERS AT THIS TIME.
[2018-03-24 12:02] LABS: HEMATOCRIT 27.6 % (42.0-52.0); HEMOGLOBIN 9.5 gm/dL (14.0-18.0); MCH 30.8 pg (26.0-34.0); MCHC 34.3 g/dL (28.0-37.0); MCV 89.8 fL (80.0-100.0); MPV 7.2 fl. (7.2-11.1); RBC 3.08 mil/uL (4.50-6.00); RDW-CV 13.5 % (10.5-14.5); WBC 9.1 thou/uL (4.0-11.0)
[2018-03-24 12:13] LABS: ALBUMIN 2.5 g/dL (3.4-5.0); CREATININE 1.6 mg/dL (0.6-1.3); POTASSIUM 3.5 mmol/L (3.5-5.1); TOTAL BILIRUBIN 3.4 mg/dL (<0.1-1.0); TOTAL PROTEIN 6.1 g/dL (6.4-8.2)
[2018-03-24 16:00] VITALS: BP 100/68
--- NOTE | 2018-03-24 19:10 | NUR ---
PT VSS THIS SHIFT, HYPONATREMIC THIS SHIFT AND FLUIDS STARTED. PT TOLERATING CLD AND CAN BE FORGETFUL AND FOCUS IDEAS. PT HAS RAC THAT HAS NS RUNNING AT 100/HR THIS SHIFT. PT HAS INCREASED NAUSEA AND PAIN, BUT IS MANAGED WITH MEDICATIONS.
[2018-03-24 20:30] VITALS: BP 90/55
[2018-03-25 04:49] LABS: HEMATOCRIT 28.1 % (42.0-52.0); HEMOGLOBIN 9.5 gm/dL (14.0-18.0); MCH 30.5 pg (26.0-34.0); MCHC 33.7 g/dL (28.0-37.0); MCV 90.3 fL (80.0-100.0); MPV 7.4 fl. (7.2-11.1); RBC 3.11 mil/uL (4.50-6.00); RDW-CV 13.4 % (10.5-14.5); WBC 7.6 thou/uL (4.0-11.0)
[2018-03-25 05:05] LABS: ALBUMIN 2.4 g/dL (3.4-5.0); CALCIUM 8.3 mg/dL (8.5-10.1); CREATININE 1.3 mg/dL (0.6-1.3); MAGNESIUM 1.6 mg/dL (1.8-2.4); POTASSIUM 3.8 mmol/L (3.5-5.1); TOTAL BILIRUBIN 2.8 mg/dL (<0.1-1.0); TOTAL PROTEIN 6.2 g/dL (6.4-8.2)
--- NOTE | 2018-03-25 07:44 | NUR ---
DR. DUNN NOTIFIED THIS AM REGARDING PATIENTS STATUS. PATIENT WAS HAVING DIFFICULTY BREATHING WITH INCREASED RESPIRATIONS AND RAPID BREATHING AND PATIENT TACHY. CRACKLES HEARD IN LOWER LOBES AND PATIENT SOUNDS WET. FLUIDS STOPPED IMMEDIATELY. PATIENT 02 SATURATION WAS 85% AND NURSE PLACED PATIENT ON 3L02 VIA NASAL CANNULA AND SATURATION NOW INCREASED TO 93% AND PATIENT. RESPIRATORY NOTIFIED. DR. DUNN STATED THAT HE WOULD SEE PATIENT THIS AM. NO NEW ORDERS RECEIVED. IS AT BEDSIDE. PATIENT IS ALERT AND ORIENTED X 4 BUT FORGETFUL AT TIMES. MEDICATIONS GIVEN DURING SHIFT GIVEN ORDERED AND CHARTED. IV IN RIGHT WRIST-SL. PATIENT INSTRUCTED TO USE CALL LIGHT WHEN NEEDING ASSISTANCE. HOURY ROUNDS MADE. WILL CONTINUE WITH PLAN OF CARE AND NURSING TO MONITOR.
[2018-03-25 07:45] VITALS: BP 105/62
[2018-03-25 16:00] VITALS: BP 103/67
--- NOTE | 2018-03-25 18:17 | NUR ---
ALERT AND ORIENTED X4. UP AD PEDRO LUIS IN ROOM. IV IS PATENT AND INFUSING. PAIN BEING MANAGED WITH PO AND IV PAIN MEDICATION. NAUSEA BEING MANAGED WITH SCHEDULED IV NAUSEA MEDICATION. VSS ON 3L O2. CALL LIGHT IS WITHIN REACH. NURSING WILL CONTINUE TO MONITOR.
[2018-03-26 04:21] LABS: HEMATOCRIT 23.6 % (42.0-52.0); MCH 30.7 pg (26.0-34.0); MCHC 33.9 g/dL (28.0-37.0); MCV 90.4 fL (80.0-100.0); MPV 7.5 fl. (7.2-11.1); RBC 2.61 mil/uL (4.50-6.00); RDW-CV 13.5 % (10.5-14.5); WBC 6.5 thou/uL (4.0-11.0)
[2018-03-26 04:33] LABS: CALCIUM 7.9 mg/dL (8.5-10.1); CREATININE 1.1 mg/dL (0.6-1.3); MAGNESIUM 1.6 mg/dL (1.8-2.4); POTASSIUM 3.6 mmol/L (3.5-5.1); TOTAL BILIRUBIN 1.1 mg/dL (<0.1-1.0); TOTAL PROTEIN 5.4 g/dL (6.4-8.2)
--- NOTE | 2018-03-26 07:48 | NUR ---
PATIENT HAS SLEPT WELL THROUGHOUT THE NIGHT. AT BEDSIDE. VSS ON 3L 02 VIA NASAL CANNULA. MEDICATIONS GIVEN ORDERED AND CHARTED. IV IN RIGHT WRIST-NS @ 50ML/HR. NO C/O OF SOA DURING THE SHIFT. PATIENT INSTRUCTED TO USE CALL LIGHT WHEN NEEDING ASSISTANCE. HOURLY ROUNDS MADE. WILL CONTINUE WITH PLAN OF CARE AND NURSING TO MONITOR.
[2018-03-26 16:00] VITALS: BP 92/56
--- NOTE | 2018-03-26 19:50 | NUR ---
PATIENTS CAME TO NURSES DESK AND NOTIFIED NURSE THAT PATIENT HAD A FALL LAST NIGHT IN THE BATHROOM. IS VERY SCARED OF PATIENT GETTING MAD AT HER FOR TELLING US. STATES PATIENT THREATENED HER THAT IF SHE TOLD US THAT HE WOULD RIP EVERYTHING OUT AND WALK OUT OF THE HOSPITAL. DR. MALLORY HAS BEEN NOTIFIED OF THE FALL. FALL PRECAUTIONS HAVE BEEN PUT INTO PLACE.
--- NOTE | 2018-03-26 20:21 | NUR ---
ALERT AND ORIENTED X4. UP WITH STAND BY ASSISTANCE IN ROOM. IV IS PATENT AND SALINE LOCKED. PAIN BEING MANAGED WITH PO AND IV PAIN MEDICATION. NAUSEA BEING MANAGED WITH IV NAUSEA MEDICATION. FALL PRECAUTIONS ARE NOW IN PLACE. VSS ON ROOM AIR. HOURLY ROUNDS HAVE BEEN MAINTAINED THROUGHOUT SHIFT. CALL LIGHT IS WITHIN REACH. NURSING WILL CONTINUE TO MONITOR.
[2018-03-26 22:00] VITALS: BP 102/70
--- NOTE | 2018-03-27 06:01 | NUR ---
PATIENT HAS SLEPT WELL THROUGHOUT THE NIGHT. PAIN CONTROLLED WITH ORAL PAIN MEDICATION. VSS ON 3L 02 VIA NASAL CANNULA. PATIENT IS UP WITH SBA TO THE BATHROOM AND FALL PRECAUTIONS IN PLACE. PATIENT EDUCATED ON FALL RISKS AND BED ALARM SET WHEN IN BED. AT BEDSIDE. IV IN RIGHT FOREARM-SL. PATIENT INSTRUCTED TO USE CALL LIGHT WHEN NEEDING ASSISTANCE. HOURLY ROUNDS MADE. WILL CONTINUE WITH PLAN OF CARE AND NURSING TO MONITOR.
[2018-03-27 08:40] VITALS: BP 103/59
--- NOTE | 2018-03-27 12:30 | CON ---
[address] [address] CONSULTATION Name: JOSEPHJULIANNERONNY QUYNH Room: [address] IN M.R.#: [id number] Admission: 03/14/18 Attend Phys: Racquel Cisse Discharge: Date of : 51 Report #: [id number] THIS REPORT FOR: //name// CC: Xu Joshi HISTORY OF PRESENT ILLNESS: This is a very pleasant 62-year-old male who is known to us from his previous admission, presenting with nausea, vomiting. The patient presented with somewhat similar complaints during his previous admission. The patient reports abdominal pain, nausea and vomiting. He reports these symptoms have been going on for a couple of weeks and they have been worse in the last few days. The patient reports that he is vomiting up to 10 times a day. The emesis usually consists of consumed food, but occasionally he also had dry heaving. The patient denies any blood in vomit. The patient denies any significant weight loss, diarrhea, fevers or chills. PAST MEDICAL HISTORY: The patient has a history of COPD, coronary artery disease, hypertension and hyperlipidemia. SURGICAL HISTORY: The patient has had several stents for his coronary artery disease. SOCIAL HISTORY: The patient reports a remote history of smoking, but otherwise denies alcohol or recreational drug use. FAMILY HISTORY: There is no family history of colorectal cancer. REVIEW OF SYSTEMS: A comprehensive 10-point review of systems is negative except for what is mentioned here. PHYSICAL EXAMINATION: VITAL SIGNS: Temperature 36.5, pulse rate 79, respirations 19, blood pressure 101/66. GENERAL: The patient is alert, awake, oriented x 3. HEENT: Pupils are equal, round, reactive to light and accommodation. Mucous membranes are moist. There is no congestion. LUNGS: Clear to auscultation bilaterally. HEART: Rate and rhythm regular, S1, S2 present. ABDOMEN: Soft. There is no distention, guarding or rigidity. EXTREMITIES: Warm and well perfused. NEUROLOGIC: No focal neurological deficit. IMAGING: The patient has had a nuclear gastric emptying study performed in last month showed delayed gastric emptying at 3 and 4 hours. ASSESSMENT AND PLAN: This is a pleasant 62-year-old male with past medical history significant for hypertension, coronary artery disease, [place] [address] CONSULTATION Name: MIRELLA YEAGEREn BEAUCHAMP Room: [address] IN [facility]#: [id number] Admission: 03/14/18 Attend Phys: Racquel Cisse Discharge: Date of : 51 Report #: [id number] with progressively worsening nausea and vomiting for the last 2 weeks. The patient's nausea and vomiting have resolved today. The patient did have extensive evaluation done in the past including esophagogastroduodenoscopy, colonoscopy and gastric emptying test. Esophagogastroduodenoscopy and colonoscopy were unremarkable, therefore I told him no value in repeating them at this time. We will continue to manage the patient symptomatically. The patient is currently on Reglan 5 mg, Protonix 40 mg p.o. daily for symptom relief. I will add an additional Phenergan p.r.n. for nausea and vomiting. Based on the fact that he does not have diabetes and he does have delayed gastric emptying, it is quite likely that the patient has idiopathic gastroparesis causing these symptoms. GI service will continue to follow this patient. <ELECTRONICALLY SIGNED> By: Kaleb Galarza MD 03/27/18 1230 [id number] Galarza MD /nt
[2018-03-27 16:24] VITALS: BP 111/75
--- NOTE | 2018-03-27 17:42 | NUR ---
PT A&Ox4. FINE CRACKLES HEARD BILATERALLY. LASIX STARTED FOR FLUID OVERLOAD. ON 2L OF OXYGEN, 97%. BP 103/59, PULSE 88, TEMP 98.4. HAD BM DURING SHIFT. IV SALINE LOCKED. TOLERATES FULL LIQUID DIET. AT BEDSIDE MOST OF SHIFT. HYDROCODONE NEEDED FOR PAIN. GI HASNT ROUNDED IN A COUPLE OF DAYS, CALLED ANSWERING SERVICE, NO RETURNED CALL. FALL PRECAUTIONS IN PLACE. CALL LIGHT IN REACH. WILL CONTINUE TO MONITOR.
--- NOTE | 2018-03-27 17:52 | NUR ---
NURSING DOCUMENTATION BY BRAEDEN TAYLOR REVIEWED
[2018-03-27 19:40] VITALS: BP 110/74
--- NOTE | 2018-03-28 05:01 | NUR ---
PT AT 98% O2 ON 2L VIA NC WITH A SALINE LOCK ON R WRIST. PT IS AXO X4. PT REPORTED TO NURSE THAT PT FELL THREE DAYS AGO AND WOULD 'GET ANGRY' AND 'RIP OUT ALL IV' IF FALL IS DISCUSSED. PT NOT IN COMPLIANCE WITH FALL PRECAUTIONS. PT REFUSES TO WEAR YELLOW SOCKS OR KEEP BED ALARM ON. AT BEDSIDE. WILL CONTINUE TO MONITOR.
[2018-03-28 05:19] LABS: HEMATOCRIT 26.5 % (42.0-52.0); HEMOGLOBIN 8.8 gm/dL (14.0-18.0); MCH 30.5 pg (26.0-34.0); MCHC 33.3 g/dL (28.0-37.0); MCV 91.6 fL (80.0-100.0); MPV 7.4 fl. (7.2-11.1); NUCLEATED RBCS 0 /100WBC; PLATELET COUNT* 274 thou/uL (150-400); RBC 2.89 mil/uL (4.50-6.00); WBC 6.7 thou/uL (4.0-11.0)
[2018-03-28 05:44] LABS: ALBUMIN 2.1 g/dL (3.4-5.0); CREATININE 0.9 mg/dL (0.6-1.3); MAGNESIUM 1.6 mg/dL (1.8-2.4); POTASSIUM 4.1 mmol/L (3.5-5.1); TOTAL BILIRUBIN 0.9 mg/dL (<0.1-1.0); TOTAL PROTEIN 5.3 g/dL (6.4-8.2)
[2018-03-28 06:37] LABS: ABSOLUTE BASOPHILS 0.1 thou/uL (0.0-0.2); ABSOLUTE EOSINOPHILS 0.5 thou/uL (0.0-0.7); ABSOLUTE LYMPHOCYTES 0.6 thou/uL (0.8-5.3); ABSOLUTE MONOCYTES 0.6 thou/uL (0.0-1.2); PLATELET ESTIMATE ADEQUATE
[2018-03-28 07:50] VITALS: BP 119/75
[2018-03-28 08:28] VITALS: BP 119/75
--- NOTE | 2018-03-28 13:46 | NUR ---
PT.BEING DISCHARGED TODAY PER . RT DID RESTING AND EXERCISE SATS AND PT.DOES NOT QUALIFY FOR HOME O2. DISCUSSED HOME HEALTH WITH PT.AND . THEY DECLINED. ATTEMPTED TO ENCOURAGE THEM TO HAVE HH. JUST KEPT SAYING 'ITS TOO HARD ON OUR DOGS. THEY BARK AND HAVE TO BE PUT UP. ITS NOT FAIR TO THEM.' NURSING INFORMED.
[2018-03-28] MEDS ORDERED: AMITRIPTYLINE H25 M2 PO (13:58)
[2018-03-28] MEDS ORDERED: TRANSDERM-SCOP1 EACH TRANSDERM (13:58)
[2018-03-28] MEDS ORDERED: ZOFRAN ODT4 MG SUBLING (13:58)
[2018-03-28] MEDS ORDERED: REGLAN 10 MG TA10 MG PO (13:58)
[2018-03-28] MEDS ORDERED: SENNA PLUS TAB1 EACH PO (13:58)
[2018-03-28] MEDS ORDERED: PROTONIX40 M1 PO (13:58)
[2018-03-28] MEDS ORDERED: PRENATAL PO (13:58)
[2018-03-28] MEDS ORDERED: HYDROCODONE-AP1 EAC6 PO (13:58)
[2018-03-28] MEDS ORDERED: PHENERGAN 25 MG25 M1 PO (13:58)
--- NOTE | 2018-03-28 15:51 | NUR ---
A&Ox4. ROOM AIR 90%. HAD REST AND EXERSISE TEST WITH RT AND APPROVED TO GO HOME ON NO OXYGEN. REFUSED HOME HEALTH. VITALS STABLE, BP 119/75, PULSE 91, TEMP 98.3. STAND BY ASSIST. PT LEFT UNIT AT 1545, WITH NURSE AND SPOUSE. BELONINGS AND DISCHARGE PAPAERS WITH PT.
== END 2018-03-28 15:45 | disposition home or self-care (01) | DRG 391 ==
LOC: M.ERS 18:57 → M.2W 22:52 → M.TBA-ER 22:52 → M.2W 23:39 → M.ORTHSURG 03-19 13:42 → M.2W 03-21 13:34 → M.ORTHSURG 03-22 15:51
PROVIDERS: Family Medicine; Internal Medicine; Internal Medicine Gastroenterology; Personal Emergency Response Attendant; ADMIT Internal Medicine
PROC: 0F798DZ Dilation of Common Bile Duct with Intraluminal Device, Via Natural or Artificial Opening Endoscopic (ICD-10-PCS; principal; 2018-03-21)
DX: K31.84 Gastroparesis (principal); K85.90 Acute pancreatitis without necrosis or infection, unspecified; I50.23 Acute on chronic systolic (congestive) heart failure; N17.0 Acute kidney failure with tubular necrosis; J96.00 Acute respiratory failure, unspecified whether with hypoxia or hypercapnia; I13.0 Hypertensive heart and chronic kidney disease with heart failure and stage 1 through stage 4 chronic kidney disease, or unspecified chronic kidney disease; R65.10 Systemic inflammatory response syndrome (SIRS) of non-infectious origin without acute organ dysfunction; J44.0 Chronic obstructive pulmonary disease with (acute) lower respiratory infection; N18.3 Chronic kidney disease, stage 3 (moderate); Z77.22 Contact with and (suspected) exposure to environmental tobacco smoke (acute) (chronic); I25.5 Ischemic cardiomyopathy; E78.5 Hyperlipidemia, unspecified; G89.29 Other chronic pain; R10.9 Unspecified abdominal pain; D63.8 Anemia in other chronic diseases classified elsewhere; E86.0 Dehydration; I25.119 Atherosclerotic heart disease of native coronary artery with unspecified angina pectoris; K83.4 Spasm of sphincter of Oddi; Z79.82 Long term (current) use of aspirin; Z95.5 Presence of coronary angioplasty implant and graft; I25.2 Old myocardial infarction; Z95.0 Presence of cardiac pacemaker; Z87.891 Personal history of nicotine dependence; Z82.49 Family history of ischemic heart disease and other diseases of the circulatory system; Z79.899 Other long term (current) drug therapy

== ENCOUNTER → 2018-04-27 | Outpatient (CLI) | payer OTHER ==
[~2018-04-27] MED LIST changes: +AMITRIPTYLINE H25 M2 PO; +HYDROCODONE-AP1 EAC6 PO; +PANTOPRAZOLE SO40 M1 PO; +PHENERGAN 25 MG25 M1 PO; +PRENATAL PO; +PROTONIX40 M1 PO; +SCOPOLAMINE1 EACH TRANSDERM; +SENNA PLUS TAB1 EACH PO; +TRANSDERM-SCOP1 EACH TRANSDERM; +ZOFRAN ODT4 MG SUBLING
[2018-04-27 12:34] LABS: CREATININE 1.5 mg/dL (0.6-1.3)
== END ==
LOC: M.LAB 12:00 → M.CT 13:30
PROVIDERS: Nurse Practitioner Adult Health
DX: K85.80 Other acute pancreatitis without necrosis or infection (principal); I70.8 Atherosclerosis of other arteries; K83.4 Spasm of sphincter of Oddi; K59.03 Drug induced constipation; R11.2 Nausea with vomiting, unspecified; R10.10 Upper abdominal pain, unspecified; M51.36 Other intervertebral disc degeneration, lumbar region; M43.16 Spondylolisthesis, lumbar region; Z90.49 Acquired absence of other specified parts of digestive tract; Z79.01 Long term (current) use of anticoagulants

== ENCOUNTER 2018-05-11 13:30 | Inpatient (IN) | payer OTHER ==
[~2018-05-11] VITALS: Ht 167.6 cm; Wt 73.9 kg
[2018-05-11 13:32] VITALS: BP 112/81
[2018-05-11] MEDS ORDERED: EFFIENT10 MG PO (13:38)
[2018-05-11] MEDS ORDERED: PRENATAL PO (13:39)
[2018-05-11] MEDS ORDERED: REGLAN 10 MG TA10 MG PO (13:39)
--- NOTE | 2018-05-11 13:39 | NUR ---
PATIENT HAD A SYNCOPAL EPISODE AT APPROX 1230 PATIENT STATES HE WAS DIZZY AND LIGHTHEADED AND PASSED OUT FACIAL INJURY NOTED WITH ABRASIONS. PT DENIES NECK PAIN DENIES CHEST PAIN PATIENT IS ON A BLOOD THINNER. ROMO EOM'S INTACT.
[2018-05-11] MEDS ORDERED: PROTONIX40 M1 PO (13:40)
[2018-05-11] MEDS ORDERED: CREON DR 24,001 EACH PO (13:40)
[2018-05-11 14:07] LABS: HEMATOCRIT 31.9 % (42.0-52.0); HEMOGLOBIN 10.6 gm/dL (14.0-18.0); MCH 29.6 pg (26.0-34.0); MCHC 33.1 g/dL (28.0-37.0); MCV 89.6 fL (80.0-100.0); MPV 7.2 fl. (7.2-11.1); NUCLEATED RBCS 0 /100WBC; PLATELET COUNT* 386 thou/uL (150-400); RBC 3.56 mil/uL (4.50-6.00); RDW-CV 13.2 % (10.5-14.5); WBC 6.5 thou/uL (4.0-11.0)
[2018-05-11 14:14] LABS: APTT 30.6 Seconds (25.0-31.3); INR 1.1; PROTIME 11.4 Seconds (9.20-11.50)
[2018-05-11 14:15] LABS: ANION GAP 10 mmol/L (7-16); BUN 12 mg/dL (7-18); CALCIUM 8.7 mg/dL (8.5-10.1); CHLORIDE 96 mmol/L (98-107); CO2 30 mmol/L (21-32); CREATININE 1.4 mg/dL (0.6-1.3); GLUCOSE 106 mg/dL (70-99); POTASSIUM 3.7 mmol/L (3.5-5.1); SODIUM 136 mmol/L (136-145)
[2018-05-11 14:21] LABS: ALBUMIN 2.8 g/dL (3.4-5.0); ALKALINE PHOSPHATASE 117 U/L (46-116); LIPASE 55 U/L (73-393); SGOT 20 U/L (15-37); SGPT 12 U/L (30-65); TOTAL BILIRUBIN 0.6 mg/dL (<0.1-1.0); TOTAL PROTEIN 7.9 g/dL (6.4-8.2); TROPONIN-I LEVEL <0.06 ng/mL (<0.06)
[2018-05-11 14:27] LABS: ABSOLUTE EOSINOPHILS 0.8 thou/uL (0.0-0.7); ABSOLUTE LYMPHOCYTES 0.8 thou/uL (0.8-5.3); ABSOLUTE MONOCYTES 0.6 thou/uL (0.0-1.2); ABSOLUTE NEUTROPHILS 4.3 thou/uL (1.6-8.1); PLATELET ESTIMATE ADEQUATE
--- NOTE | 2018-05-11 18:19 | EKG ---
[place] [address] ELECTROCARDIOGRAM REPORT Name: RONNY YEAGER Room: [place] [address] ADM IN .R.#: [id number] Admission: 05/11/18 Attend Phys: Josselni Villagomez MD Discharge: Date of : 51 Report #: [id number] THIS REPORT FOR: //name// [facility] ED Test Date: 2018-05-11 Test Time: 13:35:47 Pat Name: RONNY YEAGER Department: Room: 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: Mel HERNANDEZ : 1955 Requested By: Naveen Ardon Order Number: [id number] MD: Ja Booth Measurements Intervals [place] Rate: 86 P: 36 WV: 207 QRS: -88 QRSD: 183 T: 90 QT: 444 QTc: 531 Interpretive Statements Sinus rhythm with ventricular pacing Premature ventricular contraction No further analysis attempted due to paced rhythm Compared to ECG 03/21/2018 12:45:47 significant changes not appreciated Electronically Signed On 05-11-2018 18:18:57 CELL OPERATION SUPERVISOR by Ja Booth [email or web address] <ELECTRONICALLY SIGNED> By: Ja Booth MD, FACC 05/11/18 1818 1335 1335 Ja Booth MD, [facility] /EPI
[2018-05-11 18:59] VITALS: BP 104/59
[2018-05-11 20:00] VITALS: BP 102/71
[2018-05-12] VITALS: BP 100/67
--- NOTE | 2018-05-12 03:33 | NUR ---
PT ARRIVED FROM ED AT SHIFT CHANGE. ASSESSMENT COMPLETED CHARTED. AT BEDSIDE. ABLE TO MAKE NEEDS KNOWN. PAPERWORK SIGNED, FLUIDS STARTED PER P.O., C/O FACE, NECK AND BACK PAIN AND GAVE PRN TRAMADOL. PT ALSO C/O RIGHT SIDED FACIAL NUMBNESS, STILL ABLE TO DRINK WATER AND MOVE DIFFERENT FACIAL MUSCLES. PT THINKS ITS FROM FALLING YESTERDAY. WILL CONTINUE TO MONITOR.
[2018-05-12 04:00] VITALS: BP 115/68
[2018-05-12 05:14] LABS: HEMATOCRIT 30.3 % (42.0-52.0); HEMOGLOBIN 10.1 gm/dL (14.0-18.0); MCH 29.8 pg (26.0-34.0); MCHC 33.4 g/dL (28.0-37.0); MCV 89.1 fL (80.0-100.0); RBC 3.4 mil/uL (4.50-6.00); RDW-CV 13.2 % (10.5-14.5); WBC 7.9 thou/uL (4.0-11.0)
[2018-05-12 05:28] LABS: CALCIUM 8.3 mg/dL (8.5-10.1); CREATININE 1.4 mg/dL (0.6-1.3); MAGNESIUM 1.2 mg/dL (1.8-2.4); POTASSIUM 3.7 mmol/L (3.5-5.1)
[2018-05-12 08:00] VITALS: BP 98/67
--- NOTE | 2018-05-12 08:00 | NUR ---
AM ASSESSMENT COMPLETE, DEFER TO COMPTUER CHARTING. MANAGER WOMEN TRACKING V-PACED RHYTHM. 02 SAT ON ROOM AIR LOW 85%, RESPIRATORY NOTIFED - PLACED ON 2L PER NC 02 SAT UP IN 90'S - DR NAYAK NOTIFIED. DENIES CHEST PAIN, DIZZINESS, DOES REPORT NECK AND HEAD BEING SORE/ACHY FROM PREVIOUS FALL. AT BEDSIDE. CALL LIGHT WITHIN REACH, WILL MONITOR.
[2018-05-12 11:58] VITALS: BP 109/63
[2018-05-12 15:56] VITALS: BP 99/67
--- NOTE | 2018-05-12 16:07 | NUR ---
QA TESTER TRACKING WITH NO CHANGE IN RHYTHM. NO FURTHER COMPLAINTS OF DISCOMFORT TO NURSING. NO REPORTS OF DIZZINESS, CHEST PAIN, NUMBNESS AT THIS TIME. REMAINS AT BEDSIDE. TOLERATING DIET. CALL LIGHT WITHIN REACH. WILL CONTINUE WITH PLAN OF CARE.
[2018-05-12 20:00] VITALS: BP 103/65
[2018-05-13] VITALS: BP 88/63
--- NOTE | 2018-05-13 01:33 | NUR ---
ASSUMED PT CARE AT 1930. ASSESSMENT COMPLETED CHARTED. STILL C/O NUMBNESS TO RIGHT SIDE OF HIS FACE. TRAMADOL SEEMS TO BE HELPING HIS PAIN BETTER TODAY. ON BEDREST, UP WITH SBA TO BATHROOM, PT RESTING IN BED AT THIS TIME. WILL CONTINUE TO MONITOR.
[2018-05-13 04:00] VITALS: BP 96/68
[2018-05-13 05:29] LABS: HEMATOCRIT 29.2 % (42.0-52.0); HEMOGLOBIN 9.8 gm/dL (14.0-18.0); MCH 30.1 pg (26.0-34.0); MCHC 33.7 g/dL (28.0-37.0); MCV 89.4 fL (80.0-100.0); MPV 7.3 fl. (7.2-11.1); RBC 3.27 mil/uL (4.50-6.00); RDW-CV 13.2 % (10.5-14.5); WBC 5.5 thou/uL (4.0-11.0)
[2018-05-13 06:18] LABS: ALBUMIN 2.3 g/dL (3.4-5.0); CALCIUM 8.2 mg/dL (8.5-10.1); CREATININE 1.2 mg/dL (0.6-1.3); MAGNESIUM 1.5 mg/dL (1.8-2.4); POTASSIUM 4.1 mmol/L (3.5-5.1); TOTAL BILIRUBIN 0.5 mg/dL (<0.1-1.0)
[2018-05-13 08:00] VITALS: BP 104/69
--- NOTE | 2018-05-13 08:00 | NUR ---
ASSUMED PT. CARE AND RECEIVED REPORT AT 0730. 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 PT. ON 1.5L NC @ 96%. DENIES CURRENT COUGH/SOB. DENIES CURRENT NAUSEA. C/O NECK AND HEAD PAIN 6/10 CURRENTLY, STATES PAIN PILL GIVEN 2 BY NOC RN AT APPROX. 0600 DID HELP. FULL ASSESSMENT COMPLETED, REFER TO CHARTING. PT. AT BEDSIDE. CALL LIGHT IN REACH, FALL PRECAUTIONS IN PLACE. WILL CONTINUE WITH PLAN OF CARE.
[2018-05-13] MEDS ORDERED: TRAMADOL 50 MG50 MG PO (12:29)
[2018-05-13] MEDS ORDERED: SPIRONOLACTONE25 MG PO (12:29)
[2018-05-13 12:39] VITALS: BP 102/72
[2018-05-13 12:59] VITALS: BP 102/72
--- NOTE | 2018-05-13 13:53 | NUR ---
DC ORDERS RECEIVED. IV AND MONITOR REMOVED. PT. AND SPOUSE GIVEN DC INSTRUCTINS, SCRIPTS, AND CARENOTES. PT. LEAVING VIA WHEELCHAIR TO RETURN HOME IN PERSONAL VEHICLE, ALL BELONGINGS ACCOUNTED FOR AT DC.
--- NOTE | 2018-05-14 09:25 | NUR ---
ORDER'S RECEIVED. PATIENT DC'ED PRIOR TO P.T. EVALUATION. RYLEE GANDARA,MPT
--- NOTE | 2018-05-14 16:44 | CON ---
[address] [address] CONSULTATION Name: SHOBHARONNY QUYNH Room: [address] IN M.R.#: [id number] Admission: 05/11/18 Attend Phys: Josselin Villagomez MD Discharge: 05/13/18 Date of : 51 Report #: [id number] THIS REPORT FOR: //name// CC: Xu Roche DATE OF SERVICE: 05/12/2018 CARDIOLOGY CONSULTATION HISTORY OF PRESENT ILLNESS: The patient is a 62-year-old white male who I was asked to see in the hospital today after he had a syncopal spell. The patient has an extensive past medical history. He presented in February 2017 with chest pain. The LAD was found to be occluded. He had a drug-eluting stent placed. The next day, he had an episode of high-degree atrioventricular block. Dr. Booth implanted a permanent dual chamber pacemaker. He was readmitted just a month later with chest pain. A cardiac catheterization showed no restenosis of stent, although has a long stenosis of the right coronary artery and placed a drug-eluting stent in the right coronary artery. In May 2017, he had another drug-eluting stent placed in the LAD. He then underwent upgrade of his pacemaker to a defibrillator because he is found to have evidence of cardiomyopathy. I actually performed a repeat cardiac catheterization just 6 months ago in November because of chest pain. Ejection fraction was found to be only 20%. There is no restenosis of the stent in the proximal LAD; however, there is 70% restenosis in the right coronary artery stent. I then placed a new drug-eluting stent in the right coronary artery. He actually had repeat nuclear stress test 2 months later in January that showed large anterior apical defect that was fixed without eloina-infarct ischemia. Ejection fraction was only 35%. His last echocardiogram in February showed an ejection fraction of 30%. The patient was last admitted here to [facility] in March with nausea and vomiting. He was felt to have gastroparesis. He is not very active because of chronic back pain. He uses a motorized wheelchair. The patient does have occasional chest pain, but does not have to take nitroglycerin very often. He denies any recent shortness of breath or edema. He denies any medical noncompliance. Yesterday, he was working in his van and he apparently had a brief loss of consciousness. He fell to the ground and struck his head. He was brought to [facility] by ambulance and admitted. PAST MEDICAL HISTORY: Significant for hernia repair, back surgery, cholecystectomy, hypertension, hyperlipidemia. CURRENT MEDICATIONS: Consists of aspirin, Lipitor, carvedilol, omeprazole, Ranexa, Effient. ALLERGIES: HE HAS PREVIOUS [place] [address] CONSULTATION Name: RONNY YEAGER Room: [address] IN [facility].#: [id number] Admission: 05/11/18 Attend Phys: Josselin Villagomez MD Discharge: 05/13/18 Date of : 51 Report #: [id number] FAMILY HISTORY: Positive for heart disease. SOCIAL HISTORY: He is . He and his live in [place], [place]. Of note is that both patient and his have motorized wheelchairs. 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 Quit smoking years ago. No alcohol abuse. REVIEW OF SYSTEMS: He has had no history of stroke, asthma. He has had peptic ulcer in the past, history of gastroparesis. No liver disease, no kidney disease, no cancer. No psychiatric illness. PHYSICAL EXAMINATION: GENERAL: Revealed a middle-aged male lying in bed, he appeared in no distress. VITAL SIGNS: Blood pressure 110/70, pulse is 80. He is afebrile. HEENT: He was anicteric. Conjunctivae pink. Mucous membranes moist. NECK: Neck veins nondistended. No carotid bruits. Neck was supple. CHEST: Clear to auscultation. CARDIOVASCULAR: Regular rate and rhythm. ABDOMEN: Soft. EXTREMITIES: Had no edema. Dorsalis pedis pulse 1+ bilaterally. SKIN: Warm, dry. NEUROLOGIC: Nonfocal. LYMPHATIC: No adenopathy. MUSCULOSKELETAL: No joint effusion. RADIOLOGICAL DATA: His ECG showed P-wave sensing and ventricular capture. His workup in the Emergency Room, he had CT scan of the head without contrast that showed no acute abnormality. Previous lacunar infarction. Chest x-ray showed chronic left pleural effusion, borderline heart size. LABORATORY DATA: Sodium 136, creatinine 1.4. Liver function studies were normal. Troponin 0.06. BNP 2414. White blood cell count 7.9, hemoglobin 10.1, it was actually 8.8 in March. IMPRESSION AND RECOMMENDATIONS: 1. Syncope. Reason unclear. No recent discharges of defibrillator. The patient does not appear to be dehydrated. Possible vasovagal. 2. Coronary artery disease with previous stenting. Nuclear stress test 2 months ago showed no ischemia. Because of his fall, I would recommend discontinuing aspirin and continue Effient by itself. 3. Cardiomyopathy. The patient is on a beta-erin. He was taken off of Entresto because of low blood pressure. I would consider giving the patient spironolactone. 4. Previous implantation of defibrillator. 5. High degree atrioventricular block. The patient is paced. 6. Hyperlipidemia. The patient [place] [address] CONSULTATION Name: RONNY YEAGER QUYNH Room: [address] IN [facility].#: [id number] Admission: 05/11/18 Attend Phys: Josselin Villagomez MD Discharge: 05/13/18 Date of : 51 Report #: [id number] 7. Chronic back pain. 8. Previous tobacco abuse. 9. History of ischemic colitis. The patient is followed by gastroenterology. 10. History of gastroparesis. The patient followed by gastroenterology. <ELECTRONICALLY SIGNED> By: Armin Barrios MD, FACC 05/14/18 1644 0853 2019Datana Barrios MD, FACC /nt
== END 2018-05-13 13:54 | disposition home or self-care (01) | DRG 314 ==
LOC: M.ERS 13:30 → M.TBA-ER 15:16 → M.2W 19:18
PROVIDERS: Emergency Medicine Emergency Medical Services; ADMIT Internal Medicine
DX: I95.9 Hypotension, unspecified (principal); J80 Acute respiratory distress syndrome; I13.0 Hypertensive heart and chronic kidney disease with heart failure and stage 1 through stage 4 chronic kidney disease, or unspecified chronic kidney disease; I42.9 Cardiomyopathy, unspecified; I50.22 Chronic systolic (congestive) heart failure; I25.10 Atherosclerotic heart disease of native coronary artery without angina pectoris; J44.9 Chronic obstructive pulmonary disease, unspecified; E78.5 Hyperlipidemia, unspecified; N18.3 Chronic kidney disease, stage 3 (moderate); I44.39 Other atrioventricular block; G89.29 Other chronic pain; M54.9 Dorsalgia, unspecified; S00.01XA Abrasion of scalp, initial encounter; K31.84 Gastroparesis; K83.4 Spasm of sphincter of Oddi; E11.43 Type 2 diabetes mellitus with diabetic autonomic (poly)neuropathy; E86.0 Dehydration; E11.22 Type 2 diabetes mellitus with diabetic chronic kidney disease; W18.30XA Fall on same level, unspecified, initial encounter; Y93.89 Activity, other specified; Y92.89 Other specified places as the place of occurrence of the external cause; Z95.810 Presence of automatic (implantable) cardiac defibrillator; Y99.8 Other external cause status; Z87.891 Personal history of nicotine dependence; Z95.5 Presence of coronary angioplasty implant and graft; Z90.49 Acquired absence of other specified parts of digestive tract; I25.2 Old myocardial infarction; Z79.82 Long term (current) use of aspirin; Z79.899 Other long term (current) drug therapy; Z82.49 Family history of ischemic heart disease and other diseases of the circulatory system; Z23 Encounter for immunization

== ENCOUNTER 2018-06-19 16:36 | Inpatient (IN) | payer OTHER ==
[~2018-06-19] VITALS: Ht 167.6 cm; Wt 64.6 kg
--- NOTE | ~2018-06-19 | PROC ---
[address] [address] PROCEDURE REPORT Name: RONNY YEAGER Room: [address] IN M.R.#: [id number] Admission: 06/19/18 Attend Phys: Xu Scherer MD Discharge: 06/22/18 Date of : 51 Report #: [id number] THIS REPORT FOR: //name// For GI report, please see the Provation report in Perceptive 7 content. By: [id number] Records Staff JIN /YONNY
[~2018-06-19 16:36] MED LIST changes: +CREON DR 24,001 EACH PO; +SPIRONOLACTONE25 MG PO; +TRAMADOL 50 MG50 MG PO
[2018-06-19 17:17] LABS: ABSOLUTE BASOPHILS 0.1 thou/uL (0.0-0.2); ABSOLUTE EOSINOPHILS 0.4 thou/uL (0.0-0.7); ABSOLUTE LYMPHOCYTES 0.9 thou/uL (0.8-5.3); ABSOLUTE MONOCYTES 0.7 thou/uL (0.0-1.2); ABSOLUTE NEUTROPHILS 3.9 thou/uL (1.6-8.1); BASOPHILS 0.9 %; EOSINOPHILS 6.3 %; HEMATOCRIT 34.3 % (42.0-52.0); HEMOGLOBIN 11.4 gm/dL (14.0-18.0); LYMPHOCYTES 14.6 %; MCH 29.1 pg (26.0-34.0); MCHC 33.2 g/dL (28.0-37.0); MCV 87.5 fL (80.0-100.0); MONOCYTES 11.3 %; MPV 6.9 fl. (7.2-11.1); NUCLEATED RBCS 0 /100WBC; PLATELET COUNT* 403 thou/uL (150-400); POLYS 66.9 %; RBC 3.92 mil/uL (4.50-6.00); RDW-CV 13.9 % (10.5-14.5); WBC 5.9 thou/uL (4.0-11.0)
[2018-06-19 17:29] LABS: INR 1.1; PROTIME 11.3 Seconds (9.20-11.50)
[2018-06-19] MEDS ORDERED: NORCO 5-325 TA1 EACH PO (17:35)
[2018-06-19] MEDS ORDERED: PHENERGAN 25 MG25 M1 PO (17:35)
[2018-06-19 17:42] LABS: ANION GAP 13 mmol/L (7-16); BUN 20 mg/dL (7-18); CALCIUM 9.3 mg/dL (8.5-10.1); CHLORIDE 96 mmol/L (98-107); CO2 26 mmol/L (21-32); CREATININE 1.4 mg/dL (0.6-1.3); GLUCOSE 105 mg/dL (70-99); POTASSIUM 4.1 mmol/L (3.5-5.1); SODIUM 135 mmol/L (136-145)
[2018-06-19 17:53] LABS: ALBUMIN 2.7 g/dL (3.4-5.0); ALKALINE PHOSPHATASE 93 U/L (46-116); NT-PRO BRAIN NAT PEPTIDE 4312 pg/mL (<300); SGOT 19 U/L (15-37); SGPT 15 U/L (30-65); TOTAL BILIRUBIN 0.7 mg/dL (<0.1-1.0); TOTAL PROTEIN 7.6 g/dL (6.4-8.2); TROPONIN-I LEVEL <0.06 ng/mL (<0.06)
[2018-06-19 20:30] VITALS: BP 104/43
[2018-06-19 20:31] VITALS: BP 105/72
[2018-06-19 23:03] VITALS: BP 93/64
[2018-06-20 04:00] VITALS: BP 84/41
[2018-06-20 05:50] VITALS: BP 91/56
--- NOTE | 2018-06-20 07:13 | NUR ---
RECEIVED REPORT FROM INFORMATION CONSULTANT LUIZ AT 2004. PT ARRIVED TO UNIT VIA CART AT 2024. PT AAOX4, ORIENTED TO ROOM AND CALL LIGHT. SWEDISH MASSEUSE IN PLACE, V PACED. PT C/O CHEST PAIN DURING ASSESSMENT, HOME MEDICATIONS RESTARTED. UNABLE TO ADMINISTER NITROGLYCERIN SUBLINGUAL WITH BP 93/64. DR. PEREZ NOTIFIED, NEW ORDER RECEIVED FOR IV TORADOL. SEE EMAR FOR DOCUMENTATION. PT ASLEEP DURING PAIN REASSESSMENT. HOURLY ROUNDING COMPLETED. FALL PRECAUTIONS IN PLACE, CALL LIGHT WITHIN REACH. PT NPO FOR CARDIOLOGY CONSULT THIS AM. PT VERBALIZED UNDERSTANDING.
[2018-06-20 09:10] VITALS: BP 106/60
[2018-06-20 09:24] VITALS: BP 147/66
[2018-06-20 12:00] VITALS: BP 120/68
--- NOTE | 2018-06-20 13:03 | EKG ---
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: : 1955 Requested By: Ariana Arce Order Number: [id number] MD: Armin Barrios Measurements Intervals [place] Rate: 100 P: 72 NM: 172 QRS: -88 QRSD: 196 T: 88 QT: 425 QTc: 549 Interpretive Statements Ventricular-paced rhythm No further analysis attempted due to paced rhythm Compared to ECG 05/11/2018 13:35:47 Ventricular premature complex(es) no longer present Electronically Signed On 06-20-2018 13:03:36 MARKETING PROGRAM COORDINATOR by Armin Barrios [email or web address] <ELECTRONICALLY SIGNED> By: Armin Barrios MD, FACC 06/20/18 1303 1640 1640 Armin Barrios MD, FAC /EPI
--- NOTE | 2018-06-20 16:41 | NUR ---
SPOKE TO THE PATIENT TO DISCUSS HIS HOME SITUAION, DISCHARGE PLANNING, AND TO INFORM OF THE ROLE OF CM. PATIENT ALERT AND ORIENTED. PATIENT NORMALLY INDEPENDENT WITH ADL'S. PATIENT RESIDES AT HOME WITH SPOUSE AND SHE IS ABLE TO ASSIST IF NEEDED WITH CARES. PATIENT USES AN ELECTRIC W/C FOR MOBBILITY. PATIENT HAS NO HX OF OR SNF. PATIENT PLANS TO RETURN HOME AT D/C AND DOES NOT ANTICIPATE ANY DISCHARGE PLANNING NEEDS. CM WILL REMAIN AVAILABLE TO ASSIST AND FOLLOW NEEDED.
--- NOTE | 2018-06-20 18:55 | NUR ---
ASSUMED PT CARE AT 0730, FULL ASSESMENT DONE CHARTED. PT A/O X4, DROWSY, C/O ABDOMINAL AND BACK PAIN, PT NPO THIS AM FOR CARDIOLOGY. ABLE TO EAT SMALL AMOUNTS THIS AFTERNOON, SOME NAUSEA AND PAIN NOTED, MEDS GIVEN PER MAR. PT UP WITH SBA, USES CALL LIGHT APPROPRILAYT. REMAINS AT BEDSIDE MOST OF THE DAY. PLAN TO HAVE CARDIAC CATH TOMORROW. WILL CONTINUE TO [facility].
[2018-06-20 19:54] LABS: URINE BLOOD NEGATIVE (Negative); URINE CLARITY CLEAR; URINE COLOR YELLOW; URINE GLUCOSE-RANDOM NEGATIVE (Negative); URINE KETONES NEGATIVE (Negative); URINE LEUKOCYTES-REFLEX NEGATIVE (Negative); URINE NITRITE-REFLEX NEGATIVE (Negative); URINE PROTEIN NEGATIVE (Negative); URINE SPECIFIC GRAVITY 1.025 (1.005-1.030); URINE UROBILINOGEN 0.2 E.U./dl (0.2-1.0)
[2018-06-20 19:57] LABS: ICTOTEST (BILI CONFIRMATORY) Positive (Negative); URINE BILIRUBIN 1+ (Negative)
[2018-06-20 20:00] VITALS: BP 84/56
[2018-06-20 20:11] LABS: AMP/METHAMP Negative (Negative); BARBITURATES Negative (Negative); BENZODIAZEPINES Negative (Negative); COCAINE Negative (Negative); METHADONE Negative (Negative); OPIATES POSITIVE (Negative); PCP Negative (Negative); THC POSITIVE (Negative)
[2018-06-21] VITALS (11 sets, daily range): BP systolic 79–779; BP diastolic 52–73
[2018-06-21 06:29] LABS: ABSOLUTE EOSINOPHILS 0.5 thou/uL (0.0-0.7); ABSOLUTE LYMPHOCYTES 0.8 thou/uL (0.8-5.3); ABSOLUTE MONOCYTES 0.6 thou/uL (0.0-1.2); ABSOLUTE NEUTROPHILS 5.8 thou/uL (1.6-8.1); BASOPHILS 0.6 %; EOSINOPHILS 6.4 %; HEMATOCRIT 33.9 % (42.0-52.0); HEMOGLOBIN 11.2 gm/dL (14.0-18.0); MCH 28.7 pg (26.0-34.0); MCHC 32.9 g/dL (28.0-37.0); MCV 87.2 fL (80.0-100.0); MONOCYTES 8.1 %; MPV 7.1 fl. (7.2-11.1); NUCLEATED RBCS 0 /100WBC; PLATELET COUNT* 431 thou/uL (150-400); POLYS 74.9 %; RBC 3.89 mil/uL (4.50-6.00); RDW-CV 14.2 % (10.5-14.5); WBC 7.7 thou/uL (4.0-11.0)
[2018-06-21 06:34] LABS: CALCIUM 8.9 mg/dL (8.5-10.1); CREATININE 1.4 mg/dL (0.6-1.3); POTASSIUM 3.9 mmol/L (3.5-5.1)
--- NOTE | 2018-06-21 07:50 | NUR ---
ASSUMED PT CARE AT 1930. NURSING ASSESSMENT COMPLETED AT START OF SHIFT. PT VOICED NO CONCERNS, PRN PAIN MEDICATION ADMINISTERED THIS SHIFT, SEE EMAR FOR DOCUMENTATION. PT NPO AFTER MIDNIGHT FOR CARDIAC CATH, PATIENT VOICED UNDERSTANDING. CALL LIGHT REMAINS WITHIN REACH. SPOUSE AT BEDSIDE.
--- NOTE | 2018-06-21 12:07 | CON ---
[address] [address] CONSULTATION Name: SHOBHARONNY BEAUCHAMP Room: [address] IN M.R.#: [id number] Admission: 06/19/18 Attend Phys: Xu Scherer MD Discharge: Date of : 51 Report #: [id number] THIS REPORT FOR: //name// CC: Xu Scherer DATE OF SERVICE: 06/20/2018 REQUESTING PHYSICIAN: Xu Scherer MD. HISTORY OF PRESENT ILLNESS: This is a 62-year-old male who is well known to us as he had endoscopic evaluation in the past. The patient's last colonoscopy was on 02/26/2018. At that time, he found to have hemorrhoids and diverticulosis. He also has had upper scope, which showed a 2 cm hiatal hernia, otherwise normal upper scope. The patient had gastric emptying test as well, which showed delayed gastric emptying with 4-hour gastric emptying of 15% retention. Back in May of this year, he underwent endoscopic ultrasound which was unrevealing. The patient reports that he continues to have the nausea and daily vomiting. He has lost 15 pounds in the last couple of months. He also has presented with heart failure as he cannot hold his medication down. The patient is scheduled for cardiac catheterization tomorrow. PAST MEDICAL HISTORY: Significant for history of dyslipidemia, gastroesophageal reflux disease, hypertension, history of UT, coronary artery disease status post stenting, CHF with ejection fraction of 35%, chronic kidney disease, cervical radiculopathy, borderline diabetes, status post ICD placement. The patient also has occasional syncopal episode. ALLERGIES: No known drug allergy. MEDICATIONS: Please refer to hospital MAR. SOCIAL HISTORY: The patient is , has significant comorbidities. He has long history of tobaccoism, but quit more than a year ago. He denies alcohol use. FAMILY HISTORY: Noncontributory. PHYSICAL EXAMINATION: VITAL SIGNS: Reveals blood pressure of 120/68, respirations 18, pulse 80, temperature 98. LUNGS: Clear. CARDIOVASCULAR: Regular. ABDOMEN: Soft, mildly tender to palpation in the epigastric region. [place] [address] CONSULTATION Name: RONNY YEAGER Room: [address] IN [facility]#: [id number] Admission: 06/19/18 Attend Phys: Xu Scherer MD Discharge: Date of : 51 Report #: [id number] NEUROLOGIC: The patient is alert, oriented x 3. LABORATORY DATA: Reveal sodium of 135, potassium 4.1, BUN is 20, creatinine 1.4, glucose is 105, total bilirubin is 0.7, AST is 15, alkaline phosphatase 93. WBC is 5.9 with hemoglobin of 11.4 and platelet of 403. IMAGING: Chest x-ray was obtained on admission, which showed moderate improvement of right lower lobe pneumonitis. There is also improvement of the infiltrate across the lateral left base. There is a mild increase in density in the retrocardiac left lower lobe region. There is also a new small left effusion with improvement in previous small right effusion. ASSESSMENT AND PLAN: The patient with exacerbation of congestive heart failure, who is requiring oxygen. He will have a cardiac catheterization tomorrow. Since he has persistent nausea, vomiting and weight loss, we may consider further workup in this regards. We may start repeating his EGD as his last EGD was 5 months ago. <ELECTRONICALLY SIGNED> By: Verona Billings MD 06/21/18 1207 1533 0147Verona Billings MD /nt
--- NOTE | 2018-06-21 12:43 | CON ---
[address] [address] CONSULTATION Name: RONNY YEAGER Room: [address] IN M.R.#: [id number] Admission: 06/19/18 Attend Phys: Xu Scherer MD Discharge: Date of : 51 Report #: [id number] THIS REPORT FOR: //name// CC: Xu Peña DATE OF SERVICE: 06/20/2018 HISTORY OF PRESENT ILLNESS: The patient is a 62-year-old white male who I was asked to see in the hospital today after he complained of chest pain. The patient presented in 2016 with chest pain. He was found to have complete occlusion of the LAD and was stented. The next day he had an episode of high-degree AV block and had a dual chamber pacemaker inserted. Repeat heart catheterization a month later showed no restenosis of the stent, although there is a long stenosis of right coronary artery and he had another stent placed in the right coronary artery. In May of this year, he had a stent placed in the LAD. He underwent an upgrade of his pacemaker to defibrillator because he was found to have evidence of cardiomyopathy. He had a new drug-eluting stent placed in his right coronary artery in November of this year. Echocardiogram in February showed ejection fraction 30%. The patient was actually admitted to [facility] last month after he had a brief loss of consciousness and struck his head. There were no discharges of his defibrillator. He was felt to be dehydrated. He notes that since his discharge, he has been short of breath. He has a history of gastroparesis and Dr. Su placed a stent recently. The stent was just removed [address] Su told the patient he would need an operation. Yesterday, the patient was home when he noticed some chest pain, became short of breath. His brought him to the Emergency Room and he was admitted. He has had no fever or cough. He has had some swelling. PAST MEDICAL HISTORY: He has had hernia repair, back surgery, cholecystectomy, hypertension, hyperlipidemia. CURRENT MEDICATIONS: Include atorvastatin, Effient, Ranexa, Aldactone. ALLERGIES: He has intolerance to OXYCODONE. FAMILY HISTORY: Positive for heart disease. SOCIAL HISTORY: He is . He and his live in [place], [place]. He has a motorized wheelchair. 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 Quit smoking years ago. No alcohol abuse. REVIEW OF SYSTEMS: He has had no history of stroke, asthma. He has had a peptic ulcer in the past. He has a history of gastroparesis. No liver disease, no kidney disease, no cancer. He has chronic [place] [address] CONSULTATION Name: RONNY YEAGER Room: [address] IN .R.#: [id number] Admission: 06/19/18 Attend Phys: Xu Scherer MD Discharge: Date of : 51 Report #: [id number]. PHYSICAL EXAMINATION: GENERAL: Revealed an elderly male, lying in bed, appeared in no acute distress. VITAL SIGNS: His blood pressure is 120/70, pulse is 80, he is afebrile. HEENT: He is anicteric. Conjunctivae pink. Mucous membranes moist. NECK: Veins nondistended. CHEST: Clear to auscultation. CARDIOVASCULAR: Regular rate and rhythm. ABDOMEN: Soft. EXTREMITIES: No edema. SKIN: Warm, dry. NEUROLOGIC: Nonfocal. RADIOLOGICAL DATA: His ECG on admission showed P-wave sensing and ventricular capture. His workup so far, he had a portable chest x-ray that showed defibrillator in place, clear lung shah and atelectasis. His lab work, sodium 139, BUN 20, creatinine 1.4. His albumin is 2.7. Troponin 0.06. His white blood cell count 5.9, hemoglobin 11.3. IMPRESSION AND RECOMMENDATIONS: 1. Unstable angina. Recommend cardiac catheterization. 2. Cardiomyopathy. The patient was taken off of JOSE inhibitor and ARBs in the past because of low blood pressure. 3. Previous implantation of defibrillator. 4. Complete heart block. The patient paced. 5. Hyperlipidemia. The patient is on a statin drug. 6. Chronic back pain. 7. History of gastroparesis. The patient followed by GI. <ELECTRONICALLY SIGNED> By: Armin Barrios MD, [facility] 06/21/18 1243 1351 0008Davishy Barrios MD, FAC /nt
--- NOTE | 2018-06-21 18:46 | NUR ---
assumed pt care at 0730, full assesment done as charted. pt npo this am for cath, c/o back and abdominal pain with some nausea, meds given per jul. pt has right wrist cath site. vasc band removed, no hematoma or bleeding. fluids running to RAC. pt up to bathroom with SBA, uses call light approprialty, fall precautions in place. pt to have EGD tomorrow, updated on plan. will continue with plan of care
[2018-06-22] VITALS: BP 93/65
[2018-06-22 04:00] VITALS: BP 108/76
--- NOTE | 2018-06-22 05:26 | NUR ---
ASSUMED PT CARE AT 1930. NURSING ASSESSMENT COMPLETED AT START OF SHIFT. REPAIRER FINISHED METAL IN PLACE, TRACING V PACED. DENIES CHEST PAIN THIS SHIFT, PRN PAIN MEDS ADMINISTERED FOR BACK PAIN, SEE EMAR FOR DUCUMENTATION. SPOUSE REMAINS AT BEDSIDE. HOURLY ROUNDING COMPLETED, CALL LIGHT WITHIN REACH.
[2018-06-22 07:56] VITALS: BP 84/56
[2018-06-22 10:16] VITALS: BP 84/56
[2018-06-22] MEDS ORDERED: EFFIENT10 MG PO (13:40)
[2018-06-22] MEDS ORDERED: SPIRONOLACTONE25 M1 PO (13:41)
--- NOTE | 2018-06-22 14:56 | CARD ---
[address] [address] CARDIAC CATH REPORT Name: RONNY YEAGER Room: [address] IN ..#: [id number] Admission: 06/19/18 Attend Phys: Xu Scherer MD Discharge: Date of : 51 Report #: [id number] THIS REPORT FOR: //name// APPROVED REPORT Study performed: 06/21/2018 10:44:24 Patient Details The patient is a 62 year-old male Event Personnel Ja Booth Case Making Machine Operator, Stacey Saeed RN RN, Ganga Juarez (R) Josh, Nilesh Calvo Monitor Procedures Performed Left Heart Cath w/LT VGram [id number] LHCLV , Right transradial approach Procedure Narrative A Slender Glidesheath sheath was inserted into the . Coronary angiography was performed using coronary diagnostic catheters. The right coronary system was accessed and visualized with a Rice 4.0 6fr catheter. The left coronary system was accessed and visualized with a Rice 4.0 6fr catheter. The left ventricle was accessed and visualized with a PC: Pig 6fr catheter. The patient tolerated the procedure well and there were no complications associated with the procedure. Intraoperative Conscious Sedation Fentanyl 50 mcg Fluoro Time: 1.5 minutes Dose: DAP 08268 cGycm2 71.9 mGy Contrast Type and Amount: Visipaque 100 ml Diagnostic Cath Left Main Normal. LAD Widely patent stents in the proximal portion of the LAD. The mid and distal vessel appeared normal. Diagonal 1 50% ostial narrowing. The remainder the vessel is normal. Diagonal 2 Normal. Circumflex 10% plaque proximally. The mid and distal vessel are normal. OM1 [place] [address] CARDIAC CATH REPORT Name: RONNY YEAGER Room: [address] IN [facility]#: [id number] Admission: 06/19/18 Attend Phys: Xu Scherer MD Discharge: Date of : 51 Report #: [id number] Right Coronary 20% plaque in the proximal and midportion. The distal vessel appears normal. R PDA Normal. RPLV Normal. Left Ventriculography The left ventricle is mild to moderately dilated in size with severely decreased contractility. The left ventricular ejection fraction is estimated to be 20-25%. There appears to be akinesis of the distal anterior wall and apex. Hemodynamics The aortic pressure is 75/52 mmHg with a mean of 62 mmHg. The left ventricular pressure is 84/0 mmHg with a mean of mmHg. The left ventricular end diastolic pressure is 10 mmHg. Conclusion 1. Severe left ventricular systolic dysfunction with wall motion abnormalities as outlined above. 2. Widely patent stent in the proximal LAD. 3. No other hemodynamically significant stenoses noted. 4. Mildly elevated left jugular end-diastolic pressure. 5. Findings consistent with ischemic cardiomyopathy. Recommendations 1. Continue current medical management and aggressive risk factor modification. <ELECTRONICALLY SIGNED> By: Ja Booth MD, FACC 06/22/18 1455 1455 1455Micambar Booth MD, FACC /INF
[2018-06-22 15:38] VITALS: BP 97/68
== END 2018-06-22 17:44 | disposition home or self-care (01) | DRG 286 ==
LOC: M.ERS 16:36 → M.2W 18:44 → M.TBA-ER 18:44 → M.2W 21:29
PROVIDERS: Internal Medicine; Personal Emergency Response Attendant; ADMIT Internal Medicine
PROC: B211YZZ Fluoroscopy of Multiple Coronary Arteries using Other Contrast (ICD-10-PCS; principal; 2018-06-21)
PROC: 4A023N7 Measurement of Cardiac Sampling and Pressure, Left Heart, Percutaneous Approach (ICD-10-PCS; principal; 2018-06-21)
PROC: 0DJ08ZZ Inspection of Upper Intestinal Tract, Via Natural or Artificial Opening Endoscopic (ICD-10-PCS; 2018-06-22)
DX: I25.110 Atherosclerotic heart disease of native coronary artery with unstable angina pectoris (principal); E43 Unspecified severe protein-calorie malnutrition; I44.2 Atrioventricular block, complete; I50.22 Chronic systolic (congestive) heart failure; I13.0 Hypertensive heart and chronic kidney disease with heart failure and stage 1 through stage 4 chronic kidney disease, or unspecified chronic kidney disease; G89.29 Other chronic pain; I42.9 Cardiomyopathy, unspecified; J44.9 Chronic obstructive pulmonary disease, unspecified; N18.3 Chronic kidney disease, stage 3 (moderate); I48.91 Unspecified atrial fibrillation; K31.84 Gastroparesis; E78.5 Hyperlipidemia, unspecified; M54.9 Dorsalgia, unspecified; K21.9 Gastro-esophageal reflux disease without esophagitis; Z87.891 Personal history of nicotine dependence; Z79.891 Long term (current) use of opiate analgesic; Z68.23 Body mass index [BMI] 23.0-23.9, adult; I25.2 Old myocardial infarction; Z95.5 Presence of coronary angioplasty implant and graft; Z90.49 Acquired absence of other specified parts of digestive tract; Z88.6 Allergy status to analgesic agent; Z82.49 Family history of ischemic heart disease and other diseases of the circulatory system; Z95.810 Presence of automatic (implantable) cardiac defibrillator; Z79.899 Other long term (current) drug therapy

== ENCOUNTER 2018-07-25 19:58 | Inpatient (IN) | payer OTHER ==
[~2018-07-25] VITALS: Ht 167.6 cm; Wt 63.0 kg
--- NOTE | ~2018-07-25 | CON ---
[address] [address] CONSULTATION Name: RONNY YEAGER Room: [address] IN .R.#: [id number] Admission: 07/25/18 Attend Phys: Jaodn Machuca MD Discharge: Date of : 51 Report #: [id number] THIS REPORT FOR: //name// CC: Xu Davila DO Himanshu Machuca DICTATED BY: Opal Soto [facility] DATE OF SERVICE: 07/26/2018 Please note at the time of this dictation, the patient was seen and physically examined by myself. REASON FOR CONSULTATION: Nausea, vomiting and gastroparesis. HISTORY OF PRESENT ILLNESS: This is a 62-year-old male, presented to the Emergency Room with ongoing nausea, vomiting and unable to keep anything down. He continues to lose some weight. The patient was recently here back in June for similar episodes. At that time, he underwent an EGD, which was normal and it was recommended that he come follow up in 1 month to get scheduled for an EGD with Botox injections at the pylorus and dilatation once he is off his anticoagulant therapy. The patient had not been scheduled for this. The patient also states that he ran out of his Reglan the end of June and he has been living on soups since that time. He only eats 1 or 2 meals a day and at least vomits once a day and is unable to put any weight on and his appetite is very poor. He does have some upper abdominal discomfort noted as well. This morning, he was able to eat some of his breakfast, but he has already been restarted back on his Reglan 15 mg before meals and at bedtime. The patient also was in the process of being getting scheduled for appointment over at , their transplant center for a new heart due to his severe cardiomyopathy. The patient also did have a colonoscopy done back in 02/2018 that showed diverticulosis in the sigmoid and some hemorrhoids, otherwise negative. ALLERGIES: No known drug allergies. MEDICATIONS: From home include , pantoprazole, amitriptyline, Lipitor, Effient and Aldactone. PAST MEDICAL HISTORY: Coronary artery disease with stents, NE, COPD, hypertension. His systolic LV is 35% that was done in 10/2017, chronic kidney disease stage 3, diabetes. PAST SURGICAL HISTORY: ICD placed [place] [address] CONSULTATION Name: RONNY YEAGER Room: [address]#: [id number] Admission: 07/25/18 Attend Phys: Jadon Machuca MD Discharge: Date of : 51 Report #: [id number] FAMILY HISTORY: Noncontributory. SOCIAL HISTORY: Denies any alcohol, tobacco or illegal drug use. REVIEW OF SYSTEMS: Twelve-point review of systems is essentially negative except what is mentioned in the HPI. PHYSICAL EXAMINATION: VITAL SIGNS: Temperature 36.6, pulse 78, respirations 20, blood pressure 108/70. HEART: Regular rate and rhythm. LUNGS: Diminished in the bases with faint expiratory wheeze noted. ABDOMEN: Soft, positive bowel sounds in all 4 quadrants with some slight epigastric tenderness noted to palpation. LABORATORY DATA: Hemoglobin is 11.9, white count is 5.2, platelets is 392. PT is 11.1, INR is 1.1, D-dimer is 0.68. His influenza was negative and his GFR was 56. Also, BNP was noted at 5562. Last GET was done last fall that showed at 4 hours, 15% retention. IMPRESSION: 1. Nausea and vomiting. 2. Weight loss. 3. Severe gastroparesis. The patient quit taking his Reglan the end of June. He ran out of medication and his symptoms had progressively gotten worse to this admission. 4. Cardiomyopathy. 5. Anticoagulant therapy, Effient. 6. Congestive heart failure. PLAN: 1. Recommended EGD with Botox of the pylorus and dilatation when he is off his Effient; however, we will need Cardiology approval to be off of this. 2. Reglan 15 mg before meals and at bedtime was recently restarted. 3. Further recommendations to be made once Dr. Billings sees the patient later today. Thank you for allowing us to participate in this patient's care. Please do not hesitate to call with any questions in regard to this consult. ADDENDUM I have personally seen and examined the patient and reviewed labs and imaging studies. The patient is well known to us as he has gastroparesis and was on Reglan 15 mg a.c. and at bedtime. The patient reports that he had no problem with it and was tolerating it. We had also recommended Botox injection to the [address] [address] CONSULTATION Name: RONNY YEAGER Room: M.231-P ADM IN M.R.#: [id number] Admission: 07/25/18 Attend Phys: Jadon Machuca MD Discharge: Date of : 51 Report #: [id number] pylorus, but we were limited since the patient was on anticoagulation therapy, i.e. Effient, due to severe cardiomyopathy and heart disease. We will resume the patient's Reglan 15 mg a.c. and at bedtime as he denies ever having any problems with this. We will talk to Cardiology to possibly stop the Effient, the current anticoagulation therapy, for possible EGD with Botox injection to the pylorus 48 hours after holding Effient. The patient and were notified in this regards and they are agreeable with plan. By: [id number] Billings MD /lucina
[~2018-07-25 19:58] MED LIST changes: +SPIRONOLACTONE25 M1 PO
[2018-07-25 20:07] VITALS: BP 118/90
[2018-07-25] MEDS ORDERED: CARVEDILOL3.125 MG PO (20:09)
[2018-07-25 20:27] LABS: ABSOLUTE BASOPHILS 0.1 thou/uL (0.0-0.2); ABSOLUTE EOSINOPHILS 0.3 thou/uL (0.0-0.7); ABSOLUTE MONOCYTES 0.7 thou/uL (0.0-1.2); ABSOLUTE NEUTROPHILS 3.9 thou/uL (1.6-8.1); BASOPHILS 1.2 %; EOSINOPHILS 5.2 %; HEMATOCRIT 35.2 % (42.0-52.0); HEMOGLOBIN 11.9 gm/dL (14.0-18.0); LYMPHOCYTES 16.4 %; MCH 29.2 pg (26.0-34.0); MCHC 33.7 g/dL (28.0-37.0); MCV 86.5 fL (80.0-100.0); MONOCYTES 11.4 %; MPV 7.3 fl. (7.2-11.1); NUCLEATED RBCS 0 /100WBC; PLATELET COUNT* 392 thou/uL (150-400); POLYS 65.8 %; RBC 4.07 mil/uL (4.50-6.00); RDW-CV 14.1 % (10.5-14.5); WBC 5.9 thou/uL (4.0-11.0)
[2018-07-25 20:41] LABS: INR 1.1; PROTIME 11.1 Seconds (9.20-11.50)
[2018-07-25 20:51] LABS: ALBUMIN 2.8 g/dL (3.4-5.0); ALKALINE PHOSPHATASE 93 U/L (46-116); ANION GAP 9 mmol/L (7-16); BUN 11 mg/dL (7-18); CALCIUM 9.1 mg/dL (8.5-10.1); CHLORIDE 100 mmol/L (98-107); CO2 30 mmol/L (21-32); CREATININE 1.3 mg/dL (0.6-1.3); GLUCOSE 108 mg/dL (70-99); LIPASE 46 U/L (73-393); NT-PRO BRAIN NAT PEPTIDE 5562 pg/mL (<300); SGOT 20 U/L (15-37); SGPT 12 U/L (30-65); SODIUM 139 mmol/L (136-145); TOTAL BILIRUBIN 0.5 mg/dL (<0.1-1.0); TOTAL PROTEIN 7.4 g/dL (6.4-8.2); TROPONIN-I LEVEL <0.06 ng/mL (<0.06)
[2018-07-25 21:37] LABS: INFLUENZA A ANTIGEN None Detected (None Detect); INFLUENZA B ANTIGEN None Detected (None Detect)
[2018-07-25 23:04] LABS: URINE BILIRUBIN NEGATIVE (Negative); URINE BLOOD NEGATIVE (Negative); URINE CLARITY CLEAR; URINE COLOR YELLOW; URINE GLUCOSE-RANDOM NEGATIVE (Negative); URINE KETONES NEGATIVE (Negative); URINE LEUKOCYTES-REFLEX NEGATIVE (Negative); URINE NITRITE-REFLEX NEGATIVE (Negative); URINE PROTEIN NEGATIVE (Negative); URINE SPECIFIC GRAVITY 1.015 (1.005-1.030); URINE UROBILINOGEN 0.2 E.U./dl (0.2-1.0)
[2018-07-25 23:45] VITALS: BP 116/74
[2018-07-26] VITALS (7 sets, daily range): BP systolic 96–118; BP diastolic 60–72
--- NOTE | 2018-07-26 04:57 | NUR ---
PT RECIEVED FROM ED AT [place]. ALERT AND ORIENTED X4. CALL LIGHT WITHIN REACH AND BED IN LOW POSITIN. SAT MAINTAINED IN 2L NC. C/O PAIN, MEDICATION GIVEN PER EMAR. PT RAN INTO [facility], INFORMRD PHYSICIAN, ORDERS RECIEVED. HOURLY ROUNDING DONE FOR PT SAFTEY.
[2018-07-26 05:33] LABS: MAGNESIUM 1.6 mg/dL (1.8-2.4); PHOSPHORUS* 4.5 mg/dL (2.5-4.9)
[2018-07-26] MEDS ORDERED: ONDANSETRON HCL4 M2 PO (07:45)
--- NOTE | 2018-07-26 08:30 | NUR ---
RECEIVED REPORT AND ASSUMED CARE OF PT AT 0730.PT IS A/OX4.SR WITH PVC BBB ON THE MONITOR.IV L AC PATENT AND SALINE LOCKED.PT HAS ICD .COMPLAINTS OF PAIN ON HIS BACK AND ABD,MANAGED WITH MEDS.NO EDEMA.HOURLY ROUNDING DONE FOR SAFETY.CALL LIGHT AND FALL PRECAUTIONS IN PLACE .WILL CONTINUE TO MONITOR .
--- NOTE | 2018-07-26 10:27 | NUR ---
CAR SERVICER SPOKE TO THE PATIENT TO DISCUSS HIS HOME SITUATION, DISCHARGE PLANNING AND TO INFORM OF THE ROLE OF CM. PATIENT IS KNOWN TO CM FROM PREVIOUS ADMISSION. PATIENT ALERT AND ORIENTED. PATIENT NORMALLY INDEPENDENT WITH ADL'S. PATIENT'S SPOUSE AT THE BEDSIDE AND INFORMS THAT SHE ASSIST THE PATIENT AT HOME NEEDED. PATIENT USES AN ELCETRIC CHAIR FOR MOBILITY. PATIENT HAS NO HX OF HH OR SNF. PATIENT INFORMS THAT HE HAS AN APPOINTMENT NEXT WEEK AT WITH [facility], BUT DOES NOT KNOW WHAT THE APPOINTMENT IS FOR. PATIENT'S SPOUSE INFORMS THAT THE APPOINTMENT WAS ARRANGED BY CARDIOLOGY AND BELIEVES THAT THE APPOINTMENT IS FOR AN ASSESSMENT AND COUNSELING. PATIENT INFORMS THAT HE DOES NOT ANTICIPATE ANY D/C PLANNING NEEDS. CM WILL REMAIN AVIAILABLE TO ASSIST AND FOLLOW NEEDED.
--- NOTE | 2018-07-26 15:05 | EKG ---
[place] [address] ELECTROCARDIOGRAM REPORT Name: JOSEPHJULIANNERONNY Room: [address] ADM IN .R.#: [id number] Admission: 07/25/18 Attend Phys: Jadon Machuca MD Discharge: Date of : 51 Report #: [id number] THIS REPORT FOR: //name// [facility] ED Test Date: 2018-07-25 Test Time: 20:04:55 Pat Name: RONNY YEAGER Department: Room: [facility] Gender: M Associate Publisher: : 1955 Requested By: Jada Burr Order Number: [id number] MD: Himanshu Breen Measurements Intervals [place] Rate: 94 P: 0 SC: 187 QRS: 229 QRSD: 155 T: 4 QT: 425 QTc: 532 Interpretive Statements Ventricular-paced complexes No further analysis attempted due to paced rhythm Baseline wander in lead(s) I,II,aVR Compared to ECG 06/19/2018 16:40:28 No significant changes Electronically Signed On 07-26-2018 15:05:22 CDT by Himanshu Breen [email or web address] <ELECTRONICALLY SIGNED> By: Himanshu Breen MD, FAC 07/26/18 1505 03 03 Himanshu Breen MD, [facility] /EPI
--- NOTE | 2018-07-26 18:29 | NUR ---
VSS.TRACING SR WITH PVCS ON THE MONITOR.A/OX4.ON 2 L NC.IV PATENT ON L AC.PT COMPLAINTS PAIN AND NAUSEA.MED GIVEN PER ORDER FOR PAIN AND NAUSEA.UP STAND BY ASSIST.BM TODAY.NO SKIN ISSUE.EFFIENT TO BE HELD FOR 48 HOURS PER ORDER FOR GI PROCEDURE.GI ANSWERING SERVICE CONTACTED ABOUT HOLD OF MEDICATION.MG REPLACED .CALL LIGHT AND FALL PRECAUTIONS IN PLACE.HOURLY ROUNDING DONE.WILL CONTINUE TO MONITOR.
--- NOTE | 2018-07-26 18:57 | NUR ---
THIS NURSE REVIEWED MONICA LIZARRAGA'S CHARTING AND NURSING NOTES AND AGREES WITH INFORMATION.WILL CONTINUE TO MONITOR FOR DURATION OF SHIFT.
[2018-07-27] VITALS (8 sets, daily range): BP systolic 89–104; BP diastolic 49–67
--- NOTE | 2018-07-27 04:53 | NUR ---
PT CARE ASSUMED AT 1930. ALERT AND ORIENTED X4. SAT MAINTAINED IN 2L NC. CALL LIGHT WITHIN REACH AND BED IN LOW POSITION. C/O PAIN, MEDICATION GIVEN PER EMAR. HOURLY ROUNDING DONE FOR PT SAFETY. PT REFUSES TO BE ON BED ALARM, EDUCATION GIVEN NEEDS REINFORCEMENT.
[2018-07-27 05:28] LABS: CALCIUM 8.7 mg/dL (8.5-10.1); CREATININE 1.2 mg/dL (0.6-1.3); MAGNESIUM 1.7 mg/dL (1.8-2.4); POTASSIUM 3.8 mmol/L (3.5-5.1)
--- NOTE | 2018-07-27 16:45 | NUR ---
patient resting in bed. up with standby assistance. aox4. patients pain controlled with Po medications. Blood pressure has been running 90-102/40-49 today, primary aware. hourly rounding completed for patient safety.
[2018-07-28] VITALS (7 sets, daily range): BP systolic 87–103; BP diastolic 53–72
--- NOTE | 2018-07-28 04:54 | NUR ---
PT CARE ASSUMED AT 1930. CALL LIGHT WITHIN REACH AND BED IN LOW POSITION. ALERT AND ORIENTED X4. SAT MAINTAINED IN 2L NC. PT REFUSES TO BE ON BED ALARM, EDUCATION GIVEN, NEEDS REINFORCEMENT. PT C/O HAVING [facility]IRRHEA, INFORMED PHYSICIAN, ORDERS RECIEVED AND IMPLEMETED. DENIES NAUSEA. HOURLY ROUNDINIG DONE FOR PT SAFETY.
--- NOTE | 2018-07-28 18:23 | NUR ---
patient resting in bed. vital signs stable and low blood pressure tend continues and both primary and chancery clerk are aware. patinet to have egd tomorrow and discharge to home afterwards.
[2018-07-29] VITALS: BP 90/62
[2018-07-29 04:00] VITALS: BP 103/72
[2018-07-29 04:45] LABS: ABSOLUTE BASOPHILS 0.1 thou/uL (0.0-0.2); ABSOLUTE EOSINOPHILS 0.4 thou/uL (0.0-0.7); ABSOLUTE MONOCYTES 0.7 thou/uL (0.0-1.2); ABSOLUTE NEUTROPHILS 3.7 thou/uL (1.6-8.1); BASOPHILS 0.9 %; EOSINOPHILS 7.6 %; HEMATOCRIT 34.5 % (42.0-52.0); HEMOGLOBIN 11.4 gm/dL (14.0-18.0); LYMPHOCYTES 16.3 %; MCH 28.7 pg (26.0-34.0); MCV 86.9 fL (80.0-100.0); MONOCYTES 11.7 %; MPV 7.6 fl. (7.2-11.1); NUCLEATED RBCS 0 /100WBC; PLATELET COUNT* 358 thou/uL (150-400); POLYS 63.5 %; RBC 3.97 mil/uL (4.50-6.00); WBC 5.9 thou/uL (4.0-11.0)
--- NOTE | 2018-07-29 04:56 | NUR ---
PT CARE ASSUMED AT 1930. ALERT AND ORIENTED X4. SAT MAINTAINED IN 2L NC. CALL LIGHT WITHIN REACH AND BED IN LOW POSITION. C/O PAIN, MEDICATION GIVEN PER EMAR. HOURLY ROUNDING DONE FOR PT SAFETY. PT REFUSES TO BE IN BED ALARM, EDUCATION GIVEN, NEEDS REINFORCEMENT.
[2018-07-29 05:00] LABS: ALBUMIN 2.7 g/dL (3.4-5.0); CALCIUM 8.6 mg/dL (8.5-10.1); MAGNESIUM 1.5 mg/dL (1.8-2.4); POTASSIUM 4.3 mmol/L (3.5-5.1); TOTAL BILIRUBIN 0.5 mg/dL (<0.1-1.0); TOTAL PROTEIN 6.6 g/dL (6.4-8.2)
[2018-07-29 07:45] VITALS: BP 105/65
[2018-07-29 12:00] VITALS: BP 106/67
[2018-07-29 16:00] VITALS: BP 103/67
--- NOTE | 2018-07-29 17:23 | NUR ---
PT RESTING IN BED THROUGHOUT SHIFT. EGD THIS AM. TOLERATING PO WELL. WIDE COMPLEX TACHYCARDIA ON MONITOR. DENIES CP. SOA WITH EXERTION. O2@2L PER NC WHICH DOES NOT EFFECT SATS. AT BS AND UPDATED ON PLAN OF CARE
[2018-07-29 20:10] VITALS: BP 90/68
[2018-07-30] VITALS: BP 93/64
[2018-07-30 04:00] VITALS: BP 80/51
--- NOTE | 2018-07-30 05:01 | NUR ---
PT CARE ASSUMED AT 1930. ALERT AND ORIENTED X4. SAT MAINTAINED IN 2L NC. CALL LIGHT WITHIN REACH AND BED IN LOW POSITION. C/O PAIN, MEDICATION GIVEN PER EMAR. HOURLY ROUNDING DONE FOR PT SAFETY.
[2018-07-30 07:58] VITALS: BP 109/74
[2018-07-30 09:00] VITALS: BP 109/74
--- NOTE | 2018-07-30 09:39 | NUR ---
ASSUMED CARE OF PT THIS AM AROUND 0715- AUTOMATION TEST ENGINEER IN PLACE ORDERED, TRACING V-PACED- UPON ASSESSMENT PT NOTED TO BE RESTING IN BED, AT SIDE- PT A&O X4- CONTINENT OF BOWEL AND BLADDER- UP AD-PEDRO LUIS IN ROOM, STEADY GAIT NOTED- UPPER LOBE WHEEZING NOTED, RESP EVEN AND UN-LABORED- VSS, O2 SAT 97% ON 2L- ABD SOFT/ROUND/NON-TENDER, BS X4 QUADS- LAST BM REPORTED 07/29/18- IV NOTED TO LEFT AC INTACT AND SL- MG NOTED AT 1.4 AND REPLACED X1 PER IV WITH REDRAW WNL AT 2.5- LASIX NOTED TO BE DECREASED THIS AM TO 20MG DAILY AND GIVEN PRESCIBED- PT DENIES ANY C/O PAIN/DISCOMFORT AT THIS TIME-CALL LIGHT AND PERSONAL BELONGINGS WITH IN REACH- HOURLY ROUNDS IN PLACE R/T SAFETY/NEEDS- ALL NEEDS MET AT THIS TIME-WCTM
[2018-07-30] MEDS ORDERED: REGLAN 10 MG TA10 MG PO (10:25)
[2018-07-30] MEDS ORDERED: LASIX 20 MG TAB20 MG PO (10:25)
--- NOTE | 2018-07-30 11:02 | NUR ---
ORDERS RECIEVIED FOR OKAY TO D/C TO HOME THIS SHIFT PER WITH FOLLOW UP'S INDICATED- PT SCHEDULED FOR APPT AT [facility] TODAY AT 130PM-IV TO LEFT AC D/C'D ALONG WITH DITCHER OPERATOR PRIOR TO D/C- D/C EDUCATION/TEACHING/NEEDED FOLLOW UP'S COMMUNICATED WITH PT AND WITH VERBAL UNDERSTANDING RECIEVIED PER PT AND - WRITTEN EDUCATION ALONG WITH SCRIPT PROVIDED TO PT AT TIME OF D/C- ALL QUESTIONS AND CONCERNS ADDRESSED PRIOR TO D/C- PRN HYDROCODONE GIVEN PRIOR TO D/C AT 1055- BELONGINGS PACKED AND ACCOUNTED FOR PER PT AND - PT CURRENLTY RESTING IN BED SIDE CHAIR, AWAITING D/C- ALL NEEDS MET AT THIS TIME- WCTM
== END 2018-07-30 11:15 | disposition home or self-care (01) | DRG 291 ==
LOC: M.ERS 19:58 → M.2W 22:11 → M.TBA-ER 22:11 → M.2W 23:44
PROVIDERS: Emergency Medicine; Internal Medicine; Internal Medicine Gastroenterology; ADMIT Family Medicine
PROC: 3E0G8GC Introduction of Other Therapeutic Substance into Upper GI, Via Natural or Artificial Opening Endoscopic (ICD-10-PCS; principal; 2018-07-29)
DX: I13.0 Hypertensive heart and chronic kidney disease with heart failure and stage 1 through stage 4 chronic kidney disease, or unspecified chronic kidney disease (principal); I50.23 Acute on chronic systolic (congestive) heart failure; J96.01 Acute respiratory failure with hypoxia; K31.84 Gastroparesis; I42.9 Cardiomyopathy, unspecified; R00.0 Tachycardia, unspecified; J44.9 Chronic obstructive pulmonary disease, unspecified; N18.3 Chronic kidney disease, stage 3 (moderate); E78.5 Hyperlipidemia, unspecified; K44.9 Diaphragmatic hernia without obstruction or gangrene; K57.30 Diverticulosis of large intestine without perforation or abscess without bleeding; M54.12 Radiculopathy, cervical region; I25.10 Atherosclerotic heart disease of native coronary artery without angina pectoris; Z95.810 Presence of automatic (implantable) cardiac defibrillator; I25.2 Old myocardial infarction; Z95.5 Presence of coronary angioplasty implant and graft; Z82.49 Family history of ischemic heart disease and other diseases of the circulatory system

== ENCOUNTER 2019-01-19 06:40 | Emergency (ER) | payer OTHER ==
[~2019-01-19] VITALS: Ht 172.7 cm; Wt 90.7 kg
[~2019-01-19 06:40] MED LIST changes: +LASIX 20 MG TAB20 MG PO; +ONDANSETRON HCL4 M2 PO
[2019-01-19 06:55] VITALS: BP 00/00
== END 2019-01-19 06:55 ==
LOC: M.ERS 06:40
DX: I46.9 Cardiac arrest, cause unspecified (principal); I25.10 Atherosclerotic heart disease of native coronary artery without angina pectoris; J44.9 Chronic obstructive pulmonary disease, unspecified; I13.0 Hypertensive heart and chronic kidney disease with heart failure and stage 1 through stage 4 chronic kidney disease, or unspecified chronic kidney disease; E11.22 Type 2 diabetes mellitus with diabetic chronic kidney disease; N18.3 Chronic kidney disease, stage 3 (moderate); I50.20 Unspecified systolic (congestive) heart failure; E11.43 Type 2 diabetes mellitus with diabetic autonomic (poly)neuropathy; K31.84 Gastroparesis; Z77.22 Contact with and (suspected) exposure to environmental tobacco smoke (acute) (chronic)